=== PATIENT | female | born 1980 | race Caucasian/White ===

== ENCOUNTER 2022-08-25 08:19 | Outpatient (CLI) | payer BC, SELFPAY | END 2022-08-25 08:20 | disposition home or self-care (01) | LOC: INJ CL 08:25 | PROVIDERS: PCP Student in an Organized Health Care Education/Training Program; Visit Provider Family Medicine | DX: M47.816 Spondylosis without myelopathy or radiculopathy, lumbar region (principal) | CPT/HCPCS: 64493; 64494; J0702; Q9966 ==

== ENCOUNTER 2022-10-18 20:39 | Inpatient (IN) | payer BC, SELFPAY ==
[2022-10-18 21:05] VITALS: BP 110/62; PULSE 115; RESP 20; TEMP 37.9; O2SAT 96; BMI 22.9
--- NOTE | 2022-10-18 21:11 | ED_ITS ---
HPI - URI/Sore Throat General Time Seen by Provider: 21:11 Date Seen: 10/18/22 Chief Complaint: Sore Throat Stated Complaint: Glands are swollen, Difficulty breathing Time Seen by Provider: 10/18/22 21:11 Source: patient, RN notes reviewed and old records reviewed Mode of arrival: ambulatory Limitations: no limitations History of Present Illness HPI Narrative: Delores is a very pleasant 42-year-old female with a history of HIV, nasal septoplasty in the past who comes to the emergency room for evaluation regarding fever and swelling of her nose as well as lymph node swelling in her neck. Patient notes that 5 days ago she started noticing that her lymph nodes were swollen in her neck and she was having a hard time swallowing. She states that she had fever and chills 3 days ago and just a mild amount of coughing. Because of the sore throat she has not been able to take a lot of fluids. She notes that at times it almost seems like she is having a hard time breathing. 3 days ago she also noticed some swelling in her nose and she had a nasal ring through the septum. She removed that but since that time she has had increasing swelling of the entire nose and some nasal drainage. Her fever has been well above 100. She has not had any vomiting or diarrhea. Related Data Home Medications Medication Instructions Recorded Confirmed abacavir 600 mg-dolutegravir 50 1 tab PO DAILY 10/18/22 10/18/22 mg-lamivudine 300 mg tablet (Triumeq) aripiprazole 2 mg tablet 2 mg PO DAILY 10/18/22 10/18/22 clonazepam 1 mg tablet 1 mg PO DIRECTED 10/18/22 10/18/22 escitalopram oxalate 10 mg tablet 10 mg PO DAILY 10/18/22 10/18/22 Allergies Allergy/AdvReac Type Severity Reaction Status Date / Time No Known Drug Allergies Allergy Verified 10/18/22 21:08 Review of Systems Status of ROS: Reports: 10 or more systems reviewed and unremarkable except as noted in History and below Const: Reports: fever, chills and fatigue Eyes: Denies: change in vision ENMT: Reports: throat pain, neck pain, throat swelling, difficulty swallowing, nasal discharge and nasal congestion; Denies: hoarseness or swelling of lips/tongue Cardio: Denies: chest pain, swelling of feet/ankles, lightheadedness or shortness of breath with exertion Resp: Reports: cough (Slight); Denies: shortness of breath or wheezing GI: Reports: difficulty swallowing; Denies: abdominal pain, nausea, vomiting or diarrhea : Denies: painful urination or urinary frequency Musculo: Reports: neck pain; Denies: back pain or extremity pain Integ/Breast: Reports: skin tenderness (Around the nose) and skin swelling; Denies: rash Neuro: Denies: headache or numbness in extremities Endo: Reports: fatigue Allergy/Immuno: Reports: throat swelling; Denies: wheezing PFSH [facility] Medical History (Updated 10/18/22 @ 23:55 by Holland Frances MD) Migraine ?G43.909 - Migraine, unspecified, not intractable, without status migrainosus (ICD-10) Inflammatory arthritis ?M19.90 - Unspecified osteoarthritis, unspecified site (ICD-10) High triglycerides ?E78.1 - Pure hyperglyceridemia (ICD-10) Facet hypertrophy of lumbosacral region ?M47.817 - Spondylosis without myelopathy or radiculopathy, lumbosacral region (ICD-10) Attention deficit disorder (ADD) ?F98.8 - Other specified behavioral and emotional disorders with onset usually occurring in childhood and adolescence (ICD-10) LGSIL (low grade squamous intraepithelial dysplasia) Post traumatic stress disorder (PTSD) ?F43.10 - Post-traumatic stress disorder, unspecified (ICD-10) Tobacco dependence ?F17.200 - Nicotine dependence, unspecified, uncomplicated (ICD-10) Scoliosis ?M41.9 - Scoliosis, unspecified (ICD-10) Obstructive sleep apnea ?G47.33 - Obstructive sleep apnea (adult) (pediatric) (ICD-10) Major depressive disorder ?F32.9 - Major depressive disorder, single episode, unspecified (ICD-10) Anxiety disorder ?F41.9 - Anxiety disorder, unspecified (ICD-10) Human immunodeficiency virus (HIV) disease ?B20 - Human immunodeficiency virus [HIV] disease (ICD-10) Acne ?L70.9 - Acne, unspecified (ICD-10) Alcoholism in remission ?F10.21 - Alcohol dependence, in remission (ICD-10) Surgical History (Updated 10/18/22 @ 22:50 by Holland Frances MD) [place] teeth extracted ?K08.409 - Partial loss of teeth, unspecified cause, unspecified class (ICD- 10) History of tubal ligation ?Z98.51 - Tubal ligation status (ICD-10) Hx of tonsillectomy ?Z90.89 - Acquired absence of other organs (ICD-10) Status post colonoscopy with polypectomy ?Z98.890 - Other specified postprocedural states (ICD-10) H/O section ?Z98.891 - History of uterine scar from previous surgery (ICD-10) Status post rhinoplasty ?Z98.890 - Other specified postprocedural states (ICD-10) Family History (Updated 10/18/22 @ 22:51 by Holland Frances MD) Mother Colon cancer, Onset Age: 49 Social History Non-prescribed substance use: denies use Exam Narrative: Exam Narrative: Patient is alert and oriented. Tolerating IV placement when I enter the room. Patient has obvious edema swelling of the nose. There is some soft tissue fullness under the right eye as well. EOM is full however. There is some purulent drainage on both sides of the nose. No blood at this time. Tenderness throughout with palpation. Oral cavity shows erythema in the posterior oropharynx with exudate noted around the uvula and the posterior oropharynx. Neck is with positive anterior cervical lymphadenopathy. Otherwise neck is supple. Range of motion is full. Heart with a tachycardic rate but normal rhythm. Crackles noted in the left lower lung base. Abdomen soft nontender. Lower extremities without edema. Const: Vital Signs, click to edit/add: Vital Signs - 24 hr 10/18/22 21:05 10/18/22 23:18 10/18/22 23:53 Temperature 100.2 F H 101.5 F H 101.5 F H Pulse Rate [Right Pulse Oximeter] 115 H Respiratory Rate 20 Blood Pressure [Ri ght Upper Arm] 110/62 Pulse Oximetry 96 Oxygen Delivery Me thod Room Air Documenting provider has reviewed patient's vital signs: yes Course Course Hospital Course: It is my belief that we have 2 separate medical issues going on. First patient likely has underlying URI such as COVID versus strep versus RSV versus influenza given her respiratory symptoms and sore throat. However, I am very concerned regarding the increased size of patient's nose. She has a history remotely of a nasal septoplasty. She recently removed her nose ring because it was bothering her and now she has it edema of the entire nose. She has an elevated heart rate, fever and therefore I am worried that she has nasal cellulitis/facial cellulitis with potential sepsis. Will place an IV and do labs to include CBC, comprehensive, CRP, blood cultures. Will also obtain COVID/influenza/RSV and strep. Will start Zosyn and vancomycin while awaiting CT of the face. Plan on admission to the hospital. Reevaluation(s) Reevaluation #1: Patient noted to have CRP of 38.9 with a white count of 8.91 with a left shift. Strep has tested positive in she is negative for COVID influenza and RSV. I have asked nursing staff to obtain culture from nasal drainage. Vital Signs Vital signs: Initial Vital Signs Temperature 100.2 F H 10/18/22 21:05 Temperature Source Temporal Artery Scan 10/18/22 21:05 Pulse Rate 115 H 10/18/22 21:05 Respiratory Rate 20 10/18/22 21:05 Blood Pressure 110/62 10/18/22 21:05 Blood Pressure Mean 78 10/18/22 21:05 Blood Pressure Position Sitting 10/18/22 21:05 Pulse Oximetry 96 10/18/22 21:05 Oxygen Delivery Method Room Air 10/18/22 21:05 Vital Signs Temperature 100.2 F H 10/18/22 21:05 Pulse Rate 115 H 10/18/22 21:05 Respiratory Rate 20 10/18/22 21:05 Blood Pressure 110/62 10/18/22 21:05 Pulse Oximetry 96 10/18/22 21:05 Oxygen Delivery Method Room Air 10/18/22 21:05 Temperature 101.5 F H 10/18/22 23:53 Pulse Rate 68 10/19/22 00:56 Respiratory Rate 20 10/19/22 00:56 Blood Pressure 108/58 L 10/19/22 00:56 Pulse Oximetry 96 10/18/22 21:05 Oxygen Delivery Method Room Air 10/18/22 21:05 MDM - URI/Sore Throat MDM Narrative Medical decision making narrative: 1. Sepsis-patient meets requirement criteria for sepsis but not severe sepsis. She has no elevation of fever and tachycardia but her white count is normal. However, I am concerned as her CRP is markedly elevated and she has an obvious infection about the nose and face. Further she does have strep. Patient is given 1 L of normal saline, Toradol and antibiotics are initiated prior to going to CT. 2. Facial cellulitis-patient does have purulence draining from right nostril. Blood cultures as well as wound culture accomplished. Patient started on antibiotics Zosyn and vancomycin. 3. Strep pharyngitis -tested positive. CT soft tissue neck shows no evidence of airway compromise and is reassuring. 4. HIV 5. Disposition-admission to [facility] under the care of . IV antibiotics initiated in the ED. inpatient admission. Medical Records Attestation: I reviewed the patient's medical records. Lab Data Attestation: I reviewed the patient's lab results. Labs: Lab Results 10/18/22 10/19/22 Range/Units 21:20 00:10 WBC 8.91 (4.50-11.00) K/uL RBC 4.63 (4.00-5.20) m/uL Hgb 13.1 (12.0-16.0) gm/dL Hct 39.6 (33.0-51.0) % MCV 86 (80-100) fL MCH 28 (26-34) pg MCHC 33 (32-36) gm/dL RDW Coeff of Lesley 12.9 (11.5-15.5) % Plt Count 264 (140-440) K/uL Neut % (Auto) 77.4 H (42.0-72.0) % Lymph % (Auto) 11.8 L (20-44) % [place] % (Auto) 9.3 (0.0-11.0) % Eos % (Auto) 0.1 (0.0-7.0) % Baso % (Auto) 0.1 (0.0-3.0) % Neut # (Auto) 6.90 (1.7-7.0) K/uL Lymph # (Auto) 1.10 (0.90-2.90) K/uL [place] # (Auto) 0.80 (0.00-0.90) K/UL Eos # (Auto) 0.01 (0.00-0.50) K/uL Baso # (Auto) 0.01 (0.00-0.30) K/uL Sodium 130 L (135-149) mmol/L Potassium 3.1 L (3.6-5.1) mmol/L Chloride 95 L (96-114) mmol/L Carbon Dioxide 26 (20-32) mmol/L BUN 18 (5-24) mg/dL Creatinine 0.7 (0.5-1.5) mg/dL Estimated Creat Clear 81.96 Estimated GFR 110 ml/min Glucose 107 (60-115) mg/dL Lactate 0.8 (0.5-1.9) mmol/L Calcium 9.6 (8.4-10.6) mg/dL Total Bilirubin 0.6 (0.1-1.5) mg/dL AST 34 (12-35) U/L ALT 38 H (4-35) U/L Alkaline Phosphatase 118 (40-150) U/L C-Reactive Protein 38.9 H (0.5-1.0) mg/dL Total Protein 7.7 (6.0-8.3) g/dL Albumin 4.1 (3.3-5.0) g/dL SARS-CoV-2 (PCR) Negative SARS-CoV-2 (Negative) Influenza Type A (PCR) Negative PCR FLU A (Negative) Influenza Type B (PCR) Negative PCR FLU B (Negative) RSV (PCR) Negative PCR RSV (Negative) Group A Strep DNA DETECTED A (Not Detectd) Imaging Data Chest x-ray: Attestation: I have reviewed the pertinent imaging results. My impression: No evidence infiltrate Radiologist's impression: Cardiovascular and mediastinum:? Cardiomediastinal silhouette is within normal limits? Lungs and pleural spaces:? No dense consolidations. Subtle bilateral interstitial opacities. No sign of pleural effusion.? No pneumothorax.? Bones and soft tissues:? No significant findings. IMPRESSION: No dense consolidations. Subtle bilateral interstitial opacities may be seen in the setting of viral infection, airways disease.. Facial CT: Attestation: I have reviewed the pertinent imaging results. Radiologist's impression: Facial bones: No fractures or bone lesions.? Specifically the nasal bones, temporomandibular joints, maxilla and mandible appear intact.? Orbits and globes: Unremarkable.? Sinuses: Pansinus mucosal thickening. Soft tissues: Mild right facial, right periorbital and right nasal soft tissue swelling. No soft tissue gas or abscess. IMPRESSION: Mild right facial, right periorbital and right nasal soft tissue swelling may be due to cellulitis. No soft tissue gas or abscess. Soft tissue neck CT: Attestation: I have reviewed the pertinent imaging results. Critical Care Time Critical Care Time Critical Care Time: Yes Attestation: The patient required my highest level preparedness to intervene emergently and I personally spent this critical care time directly and personally managing the patient. This critical care time included: Obtaining a history; Examining the patient; Pulse oximetry; Ordering and reviewing of studies; Arranging urgent treatment with development of a management plan; Evaluation of patients response to treatment; Frequent reassessment discussions with other providers. This critical care time was performed to assess and manage the high probability of imminent life-threatening deterioration that could result in multiorgan failure. It was exclusive of separate billable procedures and treating other patients and teaching time. Total Critical Care Time in Minutes: 60 Discharge Plan Discharge Clinical Impression: Strep pharyngitis Cellulitis Qualifiers: Site of cellulitis: face Qualified Code(s): L03.211 - Cellulitis of face Patient Disposition: Admitted As Inpatient Condition: Improved
--- NOTE | 2022-10-18 21:19 | CRLHL7_ITS ---
For Patients: As a result of the Century Cures Act, medical imaging exams and procedure reports are released immediately into your electronic medical record. You may view this report before your referring provider. If you have questions, please contact your health care provider. INDICATION: Nasal and facial cellulitis TECHNIQUE: CT maxillofacial with 62 cc Isovue 370 contrast. COMPARISON: None FINDINGS: Facial bones: No fractures or bone lesions. Specifically the nasal bones, temporomandibular joints, maxilla and mandible appear intact. Orbits and globes: Unremarkable. Sinuses: Pansinus mucosal thickening. Soft tissues: Mild right facial, right periorbital and right nasal soft tissue swelling. No soft tissue gas or abscess. IMPRESSION: Mild right facial, right periorbital and right nasal soft tissue swelling may be due to cellulitis. No soft tissue gas or abscess. Please note that all CT scans at this facility use dose modulation, iterative reconstruction, and/or weight-based dosing when appropriate to reduce radiation dose to as low as reasonably achievable. Dictated by Aye Vasques MD @ 10/18/2022 11:52:17 PM (Electronically Signed)
--- NOTE | 2022-10-18 21:19 | CRLHL7_ITS ---
For Patients: As a result of the Century Cures Act, medical imaging exams and procedure reports are released immediately into your electronic medical record. You may view this report before your referring provider. If you have questions, please contact your health care provider. INDICATION: Difficulty swallowing. History of tonsillectomy. TECHNIQUE: CT of the neck with 62 cc Isovue 370 iodinated contrast agent. Coronal and sagittal reconstructions are included. COMPARISON: None. FINDINGS: Mild mucosal thickening and hyperenhancement within the nasopharynx and oropharynx, as well as enlargement of the uvula. Findings are likely related to history of tonsillectomy. No organized fluid collections. Several prominent lymph nodes within the upper neck, greater on the right are likely reactive in etiology. No high-grade airway compromise. The supraglottic, glottic and infraglottic larynx are normal. Trachea is normal and patent. The parotid glands, submandibular and sublingual glands are normal in appearance. The thyroid gland is normal in appearance. The vascular structures opacify normally with contrast material. No suspicious lytic or blastic osseous lesions. Scattered cervical spondylosis without significant bony neural foraminal stenosis. No periapical dental disease. Moderate ethmoid air cell mucosal thickening. Right maxillary sinus air-fluid level. Visualized orbital and intracranial contents are normal. Supraclavicular regions, mediastinum and soft tissues of the imaged chest wall are normal. Visualized portions of the upper lungs are clear. IMPRESSION: 1. Typical postoperative changes within the nasopharynx/oropharynx status post tonsil ectomy by history. No organized fluid collection. Several prominent upper cervical lymph nodes are likely reactive. No high-grade airway compromise. 2. No other significant cervical soft tissue pathology. Please note that all CT scans at this facility use dose modulation, iterative reconstruction, and/or weight-based dosing when appropriate to reduce radiation dose to as low as reasonably achievable. Dictated by Zack Arthur MD @ 10/19/2022 8:45:28 AM (Electronically Signed)
--- NOTE | 2022-10-18 21:22 | CRLHL7_ITS ---
For Patients: As a result of the Cures Act, medical imaging exams and procedure reports are released immediately into your electronic medical record. You may view this report before your referring provider. If you have questions, please contact your health care provider. INDICATION: Chest pain. TECHNIQUE: Chest 2 views. COMPARISON: None. FINDINGS: Cardiovascular and mediastinum: Cardiomediastinal silhouette is within normal limits Lungs and pleural spaces: No dense consolidations. Subtle bilateral interstitial opacities. No sign of pleural effusion. No pneumothorax. Bones and soft tissues: No significant findings. IMPRESSION: No dense consolidations. Subtle bilateral interstitial opacities may be seen in the setting of viral infection, airways disease.. Dictated by Shayna Dominguez MD @ 10/18/2022 11:44:52 PM (Electronically Signed)
[2022-10-18 21:33] LABS: Basophils Absolute Auto 0.01 K/uL (0.00-0.30); Basophils Percent Auto 0.1 % (0.0-3.0); Eosinophils Absolute Auto 0.01 K/uL (0.00-0.50); Eosinophils Percent Auto 0.1 % (0.0-7.0); Hematocrit 39.6 % (33.0-51.0); Hemoglobin* 13.1 gm/dL (12.0-16.0); Immature Granulocytes Abs Auto 0.12 K/uL (0.00-0.30); Immature Granulocytes Pct Auto 1.3 %; Lymphocytes Percent Auto 11.8 % (20-44); Mean Corpuscular HGB Conc 33 gm/dL (32-36); Mean Corpuscular Hemoglobin 28 pg (26-34); Mean Corpuscular Volume 86 fL (80-100); Monocytes Percent Auto 9.3 % (0.0-11.0); Neutrophils Percent Auto 77.4 % (42.0-72.0); Platelet Count* 264 K/uL (140-440); RDW Coefficient of Variation % 12.9 % (11.5-15.5); Red Blood Count 4.63 m/uL (4.00-5.20); White Blood Count* 8.91 K/uL (4.50-11.00)
[2022-10-18] MEDS: PIPERACILLIN/TAZOBACTAM 3.375 GM in 0.9 % SODIUM CHLORIDE Mini-bag 100 ML IVPB (21:38)
[2022-10-18] MEDS: 0.9 % SODIUM CHLORIDE 1000 ml 1,000 ML IV (21:39)
[2022-10-18 21:41] LABS: Slide Review Reflex No
[2022-10-18 21:45] LABS: Albumin* 4.1 g/dL (3.3-5.0); Chloride* 95 mmol/L (96-114); Sodium* 130 mmol/L (135-149)
[2022-10-18 21:46] LABS: Potassium* 3.1 mmol/L (3.6-5.1)
[2022-10-18 21:48] LABS: Bilirubin Total* 0.6 mg/dL (0.1-1.5); Carbon Dioxide* 26 mmol/L (20-32); Creatinine* 0.7 mg/dL (0.5-1.5); Est. Creatinine Clearance* 81.96; Estimated Glomerular Filt Rate 110 ml/min
[2022-10-18 21:49] LABS: Alanine Aminotransferase* 38 U/L (4-35); Alkaline Phosphatase* 118 U/L (40-150); Aspartate Amino Transferase* 34 U/L (12-35); Blood Urea Nitrogen* 18 mg/dL (5-24); Calcium* 9.6 mg/dL (8.4-10.6); Glucose* 107 mg/dL (60-115); Total Protein* 7.7 g/dL (6.0-8.3)
[2022-10-18 22:11] LABS: PCR FLU A Negative PCR FLU A (Negative); PCR FLU B Negative PCR FLU B (Negative); PCR RSV Negative PCR RSV (Negative)
[2022-10-18 22:17] LABS: SARS PCR* Negative SARS-CoV-2 (Negative); Strep A DNA Probe* DETECTED (Not Detectd)
[2022-10-18 22:18] LABS: C Reactive Protein* 38.9 mg/dL (0.5-1.0)
[2022-10-18 23:18] VITALS: TEMP 38.6
--- NOTE | 2022-10-18 23:36 | PM.IMHP1 ---
Hospitalist- H&P: HPI History of Present Illness Time Seen by Provider: 23:30 Date Seen: 10/18/22 Chief complaint: Glands are swollen, Difficulty breathing Narrative: Delores Sotelo is a 42 year old woman presents with a 3 day history of intermittent fevers, rigors, sore throat, neck lymphadenopathy, periorbital and facial redness, warmth, swelling, nasal congestion with purulent discharge from the right nostril. Difficulty breathing through her nose but does not have difficulty breathing through her mouth. Noteworthy is that she did have a nasal ring in place. Notice discomfort on and remove the nasal ring. Despite removing the nasal ring the redness and pain persisted. Having more difficulty swallowing with discomfort. Swallows liquids all right but more painful with solid foods. Has a chronic cough but her cough is more persistent now than it normally is. Is a chronic smoker 1 pack per day. In the last 1-2 days she has had fevers, rigors, even diaphoresis. Temperatures have been up to 101? F at home. Had been hiking within the last week. Did not notice any wood ticks or deer ticks on herself or those whom she was hiking with. To the best of her knowledge she has not been exposed to SARS-CoV-2, influenza, or RSV.. Review of Systems Status of ROS: Reports: 10 or more systems reviewed and unremarkable except as noted in History and below Narrative: Has human immunodeficiency virus disease for which she takes her medication regularly and daily. Denies chest heaviness, pressure, tightness, or pain. No syncope or near syncope. Denies paroxysmal nocturnal dyspnea orthopnea. Denies edema or claudication. Denies nausea or vomiting. Denies diarrhea or constipation. Denies dysuria, urgency, frequency, or hematuria. Has had myalgias without arthralgias. Denies trauma, injury, or regional or international travel. She designates her mother, Cely, cell phone number [phone], as her medicare contact specialist should the patient not able to speak on her own behalf and make her own healthcare decisions. She requests full resuscitation in the event of cardiopulmonary demise. [facility] Medical History (Updated 10/18/22 @ 23:55 by Holland Frances MD) Migraine ?G43.909 - Migraine, unspecified, not intractable, without status migrainosus (ICD-10) Inflammatory arthritis ?M19.90 - Unspecified osteoarthritis, unspecified site (ICD-10) High triglycerides ?E78.1 - Pure hyperglyceridemia (ICD-10) Facet hypertrophy of lumbosacral region ?M47.817 - Spondylosis without myelopathy or radiculopathy, lumbosacral region (ICD-10) Attention deficit disorder (ADD) ?F98.8 - Other specified behavioral and emotional disorders with onset usually occurring in childhood and adolescence (ICD-10) LGSIL (low grade squamous intraepithelial dysplasia) Post traumatic stress disorder (PTSD) ?F43.10 - Post-traumatic stress disorder, unspecified (ICD-10) Tobacco dependence ?F17.200 - Nicotine dependence, unspecified, uncomplicated (ICD-10) Scoliosis ?M41.9 - Scoliosis, unspecified (ICD-10) Obstructive sleep apnea ?G47.33 - Obstructive sleep apnea (adult) (pediatric) (ICD-10) Major depressive disorder ?F32.9 - Major depressive disorder, single episode, unspecified (ICD-10) Anxiety disorder ?F41.9 - Anxiety disorder, unspecified (ICD-10) Human immunodeficiency virus (HIV) disease ?B20 - Human immunodeficiency virus [HIV] disease (ICD-10) Acne ?L70.9 - Acne, unspecified (ICD-10) Alcoholism in remission ?F10.21 - Alcohol dependence, in remission (ICD-10) Surgical History (Updated 10/18/22 @ 22:50 by Holland Frances MD) [place] teeth extracted ?K08.409 - Partial loss of teeth, unspecified cause, unspecified class (ICD-10) History of tubal ligation ?Z98.51 - Tubal ligation status (ICD-10) Hx of tonsillectomy ?Z90.89 - Acquired absence of other organs (ICD-10) Status post colonoscopy with polypectomy ?Z98.890 - Other specified postprocedural states (ICD-10) H/O section ?Z98.891 - History of uterine scar from previous surgery (ICD-10) Status post rhinoplasty ?Z98.890 - Other specified postprocedural states (ICD-10) Family History (Updated 10/18/22 @ 22:51 by Holland Frances MD) Mother Colon cancer, Onset Age: 49 Social History Non-prescribed substance use: denies use Meds Home Medications and Allergies Home Medications Medication Instructions Recorded Confirmed Type abacavir 600 mg-dolutegravir 50 1 tab PO DAILY 10/18/22 10/18/22 History mg-lamivudine 300 mg tablet (Triumeq) aripiprazole 2 mg tablet 2 mg PO DAILY 10/18/22 10/18/22 History clonazepam 1 mg tablet 1 mg PO DIRECTED 10/18/22 10/18/22 History escitalopram oxalate 10 mg tablet 10 mg PO DAILY 10/18/22 10/18/22 History Allergies Allergy/AdvReac Type Severity Reaction Status Date / Time No Known Drug Allergies Allergy Verified 10/18/22 21:08 Exam Narrative: Exam Narrative: Appears ill. Vision and hearing are grossly normal. Friendly, cooperative, articulate. Mood and affect are congruent. Alert, oriented to self, place, time, situation. Face with cellulitis of the periorbital region bilaterally, right greater than left, both cheeks, nasal bridge. Warm to touch with induration but no fluctuance. Purulent crusting about the right Santiago ease with purulent discharge from the right naris. Oropharynx is injected without exudate. Buccal mucosa is dry. Prominent lymphadenopathy in the cervical chains and submandibular fossa bilaterally. Neck is supple with midline trachea. Able to swallow water. Lungs clear to auscultation. Heart tones with regular rhythm, tachycardic. Abdomen with active bowel sounds, soft, nontender. Extremities without edema. Capillary refill less than 3 seconds upper and lower extremities. Independent in transfer, station, and gait. No focal motor neurologic deficits. Const: Vital Signs, click to edit/add: Vital Signs - 24 hr 10/18/22 21:05 10/18/22 23:18 Temperature 100.2 F H 101.5 F H Pulse Rate [Right Pulse Oximeter] 115 H Respiratory Rate 20 Blood Pressure [Ri ght Upper Arm] 110/62 Pulse Oximetry 96 Oxygen Delivery Me thod Room Air Documenting provider has reviewed patient's vital signs: yes Hospitalist - H&P: Result Labs Labs: Short CBC 10/18/22 Range/Units 21:20 WBC 8.91 (4.50-11.00) K/uL Hgb 13.1 (12.0-16.0) gm/dL Hct 39.6 (33.0-51.0) % Plt Count 264 (140-440) K/uL BMP 10/18/22 21:20 Sodium 130 L Potassium 3.1 L Chloride 95 L Carbon Dioxide 26 BUN 18 Creatinine 0.7 Glucose 107 Calcium 9.6 Liver Function 10/18/22 Range/Units 21:20 Total Bilirubin 0.6 (0.1-1.5) mg/dL AST 34 (12-35) U/L ALT 38 H (4-35) U/L Alkaline Phosphatase 118 (40-150) U/L Albumin 4.1 (3.3-5.0) g/dL Imaging Chest x-ray: Attestation: I have reviewed the pertinent imaging results. Radiologist's impression: Radiologist interpretation not available. By my view there is no acute infiltrates. Does have scoliosis. CT scan, face: Radiologist's impression: Radiologist's interpretation pending CT scan of neck: Radiologist's impression: Radiologist interpretation is still pending Assessment and Plan Assessment and plan (1) Facial cellulitis: Status: Acute (2) Strep pharyngitis: Status: Acute (3) Sepsis: Status: Acute (4) Human immunodeficiency virus (HIV) disease: Status: Acute (5) Tobacco dependence: Problem comment: smokes 1 ppd, 27 pyh Status: Acute Plan 1. Admit to inpatient status, assuming CT scans do not demonstrate any other major concerns that warrant immediate attention. Should we find additional abnormalities would need to consider possibly transferring to another institution or discussing with on-call ear nose throat specialist. 2. Blood cultures obtained. Wound culture obtained. Start Zosyn and vancomycin empirically for now. 3. IV fluids, analgesics and antipyretics. 4. Continue with supportive efforts, including her HIV medication. 5. Nicotine patch and inhaler. 6. Patient agreeable with above stated plans and recommendations.
[2022-10-18 23:53] VITALS: TEMP 38.6
[2022-10-18] MEDS: KETOROLAC 15 MG/ML inj IVP (23:53)
[2022-10-19] VITALS (12 sets, daily range): BP systolic 96–134; BP diastolic 57–89; PULSE 68–107; RESP 18–22; TEMP 36.3–39.3; O2SAT 90–98; BMI 21.7
[2022-10-19 00:14] LABS: Lactate* 0.8 mmol/L (0.5-1.9)
--- NOTE | 2022-10-19 00:50 | ED.NURSE ---
nurse to nurse report given to Chen. Patient to go to room 259
[2022-10-19] MEDS: 0.9 % SODIUM CHLORIDE 1000 ml 1,000 ML IV (02:13)
[2022-10-19] MEDS: POTASSIUM BICARB 25 MEQ EFFERVESCENT TAB 50 MEQ PO (02:14)
[2022-10-19] MEDS: ACETAMINOPHEN 325 MG TABLET 650 MG PO ×2 (02:14→19:58)
[2022-10-19] MEDS: 0.9 % SODIUM CH + KCL 20 mEq/L 1,000 ML 125 ML IV (02:14)
[2022-10-19] MEDS: PIPERACILLIN/TAZOBACTAM 3.375 GM in 0.9 % SODIUM CHLORIDE Mini-bag 100 ML IVPB ×4 (03:46→21:29)
--- NOTE | 2022-10-19 06:25 | PC.NURSE ---
Arrived to floor at 0100. Pt A&O. Pleasant and cooperative, but sleepy. Temp of 100.3 recorded, PRN Tylenol given. Complains of headache rating 4/10 but stating ?tolerable?. Right side of face warm, red, and swollen. Denies SOB. Up at [facility].
[2022-10-19 07:00] LABS: Lactate* 0.8 mmol/L (0.5-1.9)
[2022-10-19 07:08] LABS: Hematocrit 32.1 % (33.0-51.0); Hemoglobin* 10.6 gm/dL (12.0-16.0); Mean Corpuscular HGB Conc 33 gm/dL (32-36); Mean Corpuscular Hemoglobin 29 pg (26-34); Mean Corpuscular Volume 87 fL (80-100); Platelet Count* 237 K/uL (140-440); Red Blood Count 3.69 m/uL (4.00-5.20); Slide Review Reflex No; White Blood Count* 8.16 K/uL (4.50-11.00)
[2022-10-19 07:20] LABS: Albumin* 2.9 g/dL (3.3-5.0); Chloride* 106 mmol/L (96-114); Potassium* 3.6 mmol/L (3.6-5.1); Sodium* 132 mmol/L (135-149)
[2022-10-19 07:23] LABS: Blood Urea Nitrogen* 15 mg/dL (5-24); Carbon Dioxide* 25 mmol/L (20-32); Creatinine* 0.6 mg/dL (0.5-1.5); Est. Creatinine Clearance* 95.62; Estimated Glomerular Filt Rate 114 ml/min
[2022-10-19 07:24] LABS: Calcium* 7.8 mg/dL (8.4-10.6); Glucose* 98 mg/dL (60-115); Magnesium* 1.7 mg/dL (1.5-2.6); Phosphorus* 3.1 mg/dL (2.5-4.5)
[2022-10-19] MEDS: LACTATED RINGERS 500 ML 500 ML IV (09:13)
--- NOTE | 2022-10-19 09:13 | PM.IMPN1 ---
Progress Note: A&P Assessment and plan (1) Facial cellulitis: Problem details: - Zosyn and Vanco (10/18) - clinically improving on hospital day 1 - high risk given immunocompromised status - wound and blood cultures pending Status: Acute (2) Sepsis: Problem details: - clinically; elevated HR and hypotension, responding well to IVFs - BCx pending and currently NGTD Status: Acute (3) Strep pharyngitis: Problem details: - improving Status: Acute (4) Human immunodeficiency virus (HIV) disease: Problem details: - follows with ID as outpatient Status: Acute (5) Tobacco dependence: Problem details: - smokes 1 ppd, 27 pack-year hx - on nicotine replacement Status: Acute Plan - SCDs and ambulation for ppx - will d/c home when medically stable, possibly as early as tomorrow Subjective Date Seen: 10/19/22 Interval history: Patient is feeling better today, still having R eyelid edema. No fevers this morning (+ overnight), no concerns for hospitalist team. Exam Narrative: Exam Narrative: Gen: A and O x3, laying comfortably in bed, nontoxic HEENT: Erythema and edema of R eyelid, extends inferiorly. Able to open eye 50-60%, EOMIs intact with no pain during ROM. No trismus CV: RRR (HR in the 90s during my exam), no concerning murmurs R: LCTA bilaterally without wheezing Ext: thin, no edema, wearing Jonathon Hose Skin: No other skin lesions besides facial cellulitis on exposed skin Psych: appropriate Const: Vital Signs, click to edit/add: Vital Signs - 24 hr 10/18/22 21:05 10/18/22 23:18 10/18/22 23:53 Temperature 100.2 F H 101.5 F H 101.5 F H Pulse Rate [Pulse Oximeter] Pulse Rate [Right Pulse Oximeter] 115 H Respiratory Rate 20 Blood Pressure [Le ft Arm] Blood Pressure [Ri ght Arm] Blood Pressure [Ri ght Upper Arm] 110/62 Pulse Oximetry 96 Oxygen Delivery Me thod Room Air 10/19/22 00:56 10/19/22 01:07 10/19/22 02:00 Temperature 100.3 F H Pulse Rate [Pulse Oximeter] 107 H Pulse Rate [Right Pulse Oximeter] 68 Respiratory Rate 20 18 18 Blood Pressure [Le ft Arm] Blood Pressure [Ri ght Arm] 112/57 L Blood Pressure [Ri ght Upper Arm] 108/58 L Pulse Oximetry 95 95 Oxygen Delivery Me thod Room Air Room Air 10/19/22 02:14 10/19/22 03:57 10/19/22 05:00 Temperature 100.3 F H 100.0 F H 99.6 F Pulse Rate [Pulse Oximeter] 100 Pulse Rate [Right Pulse Oximeter] Respiratory Rate 22 Blood Pressure [Le ft Arm] 105/66 Blood Pressure [Ri ght Arm] Blood Pressure [Ri ght Upper Arm] Pulse Oximetry 91 Oxygen Delivery Me thod Room Air 10/19/22 06:00 Temperature 98.9 F Pulse Rate [Pulse Oximeter] Pulse Rate [Right Pulse Oximeter] Respiratory Rate Blood Pressure [Le ft Arm] Blood Pressure [Ri ght Arm] Blood Pressure [Ri ght Upper Arm] Pulse Oximetry Oxygen Delivery Me thod Labs Labs: Laboratory Results - last 24 hr 10/18/22 10/19/22 10/19/22 21:20 00:10 06:53 WBC 8.91 8.16 RBC 4.63 3.69 L Hgb 13.1 10.6 L Hct 39.6 32.1 L MCV 86 87 MCH 28 29 MCHC 33 33 RDW Coeff of Lesley 12.9 Plt Count 264 237 Neut % (Auto) 77.4 H Lymph % (Auto) 11.8 L [place] % (Auto) 9.3 Eos % (Auto) 0.1 Baso % (Auto) 0.1 Neut # (Auto) 6.90 Lymph # (Auto) 1.10 [place] # (Auto) 0.80 Eos # (Auto) 0.01 Baso # (Auto) 0.01 Sodium 130 L 132 L Potassium 3.1 L 3.6 Chloride 95 L 106 Carbon Dioxide 26 25 BUN 18 15 Creatinine 0.7 0.6 Estimated Creat Clear 81.96 95.62 Estimated GFR 110 114 Glucose 107 98 Lactate 0.8 0.8 Calcium 9.6 7.8 L Phosphorus 3.1 Magnesium 1.7 Total Bilirubin 0.6 AST 34 ALT 38 H Alkaline Phosphatase 118 C-Reactive Protein 38.9 H Total Protein 7.7 Albumin 4.1 2.9 L SARS-CoV-2 (PCR) Negative SARS-CoV-2 Influenza Type A (PCR) Negative PCR FLU A Influenza Type B (PCR) Negative PCR FLU B RSV (PCR) Negative PCR RSV Group A Strep DNA DETECTED A
[2022-10-19] MEDS: ESCITALOPRAM 10 MG TABLET PO (09:25)
[2022-10-19] MEDS: NICOTINE 21 MG PATCH 1 PATCH TRANSDERMA (09:25)
[2022-10-19] MEDS: SODIUM CHLORIDE 0.9 % (FLUSH) 10 ML SYRINGE 5 ML IVF ×2 (09:56→21:30)
[2022-10-19] MEDS: ARIPiprazole 10 MG TABLET 2.5 MG PO (09:56)
[2022-10-19] MEDS: OXYCODONE 5 MG TABLET PO ×2 (11:47→19:57)
[2022-10-19] MEDS: MORPHINE 2 MG/ML inj IVP (15:55)
--- NOTE | 2022-10-19 19:31 | PC.NURSE ---
[id number]: Patient continues to report increase in pain, redness and swelling to face. Patient pain controlled with prn morphine. Patient airway open. Patient reports using cranium for pain relief. Nursing reported to provider. Patient independent in room. Patient able to verbalize needs.
[2022-10-19] MEDS: VANCOMYCIN 750 MG in 0.9 % SODIUM CHLORIDE 250 ml 250 ML 257.5 MG IVPB (23:11)
[2022-10-20] MEDS: OXYCODONE 5 MG TABLET PO ×2 (00:31→21:14)
[2022-10-20] MEDS: ACETAMINOPHEN 325 MG TABLET 650 MG PO ×2 (02:45→16:18)
[2022-10-20] MEDS: MORPHINE 2 MG/ML inj IVP ×3 (02:49→16:18)
[2022-10-20] MEDS: SODIUM CHLORIDE 0.9 % (FLUSH) 10 ML SYRINGE 5 ML IVF ×3 (02:49→21:13)
[2022-10-20] MEDS: PIPERACILLIN/TAZOBACTAM 3.375 GM in 0.9 % SODIUM CHLORIDE Mini-bag 100 ML IVPB ×4 (02:50→21:13)
[2022-10-20 03:00] VITALS: BP 109/73; PULSE 86; RESP 18; TEMP 36.7; O2SAT 94
--- NOTE | 2022-10-20 06:30 | PC.NURSE ---
Pt's condition appears improving as redness and swelling at face subside. Walked several times in the hallway. Temperature at the start of the shift was at 1900 was very high at 102.8. Tylenol given and the last 2 check recorded as 99.1 and 98.1 at 2300 and 0300 respectively. Pain level has been rated between and 4 and 8, and medications given as requested. Alert and oriented and cooperated with care and treatment. Vitally stable.
[2022-10-20 07:00] VITALS: BP 114/76; PULSE 79; RESP 18; TEMP 36.7; O2SAT 96
[2022-10-20 07:06] LABS: Ionized Calcium* 1.16 mmol/L (1.11-1.30)
[2022-10-20 07:09] LABS: Basophils Absolute Auto 0.02 K/uL (0.00-0.30); Basophils Percent Auto 0.3 % (0.0-3.0); Eosinophils Absolute Auto 0.21 K/uL (0.00-0.50); Eosinophils Percent Auto 2.6 % (0.0-7.0); Hemoglobin* 10.1 gm/dL (12.0-16.0); Immature Granulocytes Abs Auto 0.08 K/uL (0.00-0.30); Lymphocytes Percent Auto 18.3 % (20-44); Mean Corpuscular HGB Conc 33 gm/dL (32-36); Mean Corpuscular Hemoglobin 28 pg (26-34); Mean Corpuscular Volume 87 fL (80-100); Monocytes Percent Auto 9.3 % (0.0-11.0); Neutrophils Absolute Auto 5.48 K/uL (1.7-7.0); Neutrophils Percent Auto 68.5 % (42.0-72.0); Platelet Count* 246 K/uL (140-440); RDW Coefficient of Variation % 13.1 % (11.5-15.5); Red Blood Count 3.57 m/uL (4.00-5.20); White Blood Count* 7.99 K/uL (4.50-11.00)
[2022-10-20 07:10] LABS: Slide Review Reflex No
[2022-10-20 07:43] LABS: Albumin* 2.7 g/dL (3.3-5.0); Chloride* 103 mmol/L (96-114)
[2022-10-20 07:44] LABS: Potassium* 3.6 mmol/L (3.6-5.1); Sodium* 133 mmol/L (135-149)
[2022-10-20 07:46] LABS: Aspartate Amino Transferase* 25 U/L (12-35); Bilirubin Total* 0.4 mg/dL (0.1-1.5); Carbon Dioxide* 29 mmol/L (20-32); Creatinine* 0.5 mg/dL (0.5-1.5); Est. Creatinine Clearance* 114.74; Estimated Glomerular Filt Rate 119 ml/min; Total Protein* 5.4 g/dL (6.0-8.3)
[2022-10-20 07:47] LABS: Alanine Aminotransferase* 22 U/L (4-35); Alkaline Phosphatase* 80 U/L (40-150); Blood Urea Nitrogen* 8 mg/dL (5-24); Calcium* 8.4 mg/dL (8.4-10.6); Glucose* 104 mg/dL (60-115); Magnesium* 1.9 mg/dL (1.5-2.6)
[2022-10-20] MEDS: NICOTINE 21 MG PATCH 1 PATCH TRANSDERMA (08:32)
[2022-10-20] MEDS: ESCITALOPRAM 10 MG TABLET PO (08:32)
[2022-10-20] MEDS: ARIPiprazole 10 MG TABLET 2.5 MG PO (08:32)
[2022-10-20] MEDS: dexAMETHasone 2 MG TABLET 6 MG PO (09:58)
[2022-10-20] MEDS: CETIRIZINE HCL 10 MG TABLET PO (09:59)
--- NOTE | 2022-10-20 10:11 | P.IMPN_ITS ---
Progress Note: A&P Assessment and plan (1) Facial cellulitis: Problem details: - Zosyn and Vanco (10/18) - high risk given immunocompromised status - cultures currently NGTD - given worsening of R eyelid edema on 10/20, will repeat CT Status: Acute (2) Sepsis: Problem details: - clinically; elevated HR and hypotension on admission - hemodynamically stable at this time, responding well to IVFs - BCx currently NGTD Status: Acute (3) Strep pharyngitis: Status: Acute (4) Human immunodeficiency virus (HIV) disease: Problem details: - on Triumeq, follows with ID as outpatient Status: Acute (5) Tobacco dependence: Problem details: - smokes 1 ppd, 27 pack-year hx - on nicotine replacement Status: Acute Plan - continue IV abx - repeat imaging today - teds, ambulation for ppx; add Lovenox 10/20 Subjective Date Seen: 10/20/22 Interval history: Tmax 102.8 overnight, afebrile this morning. Delores still has mild discomfort in R side of her throat and R eye edema see ms worse today. She's been ambulating without lightheadedness or dizziness and is tolerating po intake. Exam Narrative: Exam Narrative: GEN: Alert HEENT: R eyelid has worsening edema noted (unable to open eye at all without assistance). When I hold eyelid open, she is able to perform EOMIs without pain. Conjunctiva is normal. + exudative pharyngitis R posterior oropharynx, + R sided cervical adenopathy, no trismus CV: RRR, No concerning murmurs, rubs, or gallops R: LCTA bilaterally without concerning wheezing, rales, or rhonchi Ext: wwp, no concerning edema Skin: see above - no other concerning skin lesions Neuro: Nonfocal Psych: Appropriate Const: Vital Signs, click to edit/add: Vital Signs - 24 hr 10/19/22 11:00 10/19/22 15:00 10/19/22 15:00 Temperature 97.4 F L Pulse Rate [Pulse Oximeter] 85 85 Respiratory Rate 20 20 20 Blood Pressure [Le ft Arm] Blood Pressure [Ri ght Arm] 103/67 Pulse Oximetry 98 98 Oxygen Delivery Me thod Room Air Room Air 10/19/22 15:00 10/19/22 19:00 10/19/22 23:00 Temperature 97.3 F L 102.8 F H Pulse Rate [Pulse Oximeter] 100 104 H 85 Respiratory Rate 18 18 18 Blood Pressure [Le ft Arm] 122/75 134/89 Blood Pressure [Ri ght Arm] Pulse Oximetry 93 93 Oxygen Delivery Me thod Room Air Room Air 10/19/22 23:00 10/19/22 23:00 10/20/22 03:00 Temperature 99.1 F 98.1 F Pulse Rate [Pulse Oximeter] 85 86 Respiratory Rate 18 18 18 Blood Pressure [Le ft Arm] 96/69 109/73 Blood Pressure [Ri ght Arm] Pulse Oximetry 90 90 94 Oxygen Delivery Me thod Room Air Room Air Room Air 10/20/22 07:00 Temperature 98.0 F Pulse Rate [Pulse Oximeter] 79 Respiratory Rate 18 Blood Pressure [Le ft Arm] 114/76 Blood Pressure [Ri ght Arm] Pulse Oximetry 96 Oxygen Delivery Me thod Room Air Labs Labs: Laboratory Results - last 24 hr 10/20/22 06:06 WBC 7.99 RBC 3.57 L Hgb 10.1 L Hct 31.0 L MCV 87 MCH 28 MCHC 33 RDW Coeff of Lesley 13.1 Plt Count 246 Neut % (Auto) 68.5 Lymph % (Auto) 18.3 L [place] % (Auto) 9.3 Eos % (Auto) 2.6 Baso % (Auto) 0.3 Neut # (Auto) 5.48 Lymph # (Auto) 1.50 [place] # (Auto) 0.70 Eos # (Auto) 0.21 Baso # (Auto) 0.02 Sodium 133 L Potassium 3.6 Chloride 103 Carbon Dioxide 29 BUN 8 Creatinine 0.5 Estimated Creat Clear 114.74 Estimated GFR 119 Glucose 104 Calcium 8.4 Ionized Calcium Imer 1.16 Magnesium 1.9 Total Bilirubin 0.4 AST 25 ALT 22 Alkaline Phosphatase 80 C-Reactive Protein 23.0 H Total Protein 5.4 L Albumin 2.7 L
[2022-10-20 11:00] VITALS: BP 103/67; BP 119/77; PULSE 89; RESP 18; TEMP 36.7; O2SAT 96
--- NOTE | 2022-10-20 12:34 | CRLHL7_ITS ---
For Patients: As a result of the Century Cures Act, medical imaging exams and procedure reports are released immediately into your electronic medical record. You may view this report before your referring provider. If you have questions, please contact your health care provider. INDICATION: Follow up nasal and periorbital cellulitis. TECHNIQUE: CT images acquired through the facial bones following intravenous contrast. COMPARISON: CT facial bones 10/18/2022. FINDINGS Extensive stranding throughout the subcutaneous tissues of the right greater than left face, including the periorbital regions, as well as stranding along the bilateral jugular chains and anterior cervical neck. These findings have increased compared to the prior CT. No peripherally enhancing collection to suggest abscess. No postseptal inflammation. Small retropharyngeal fluid collection without peripheral enhancement, not significantly changed. The nasopharynx, oropharynx, hypopharynx, and visualized larynx are adequately patent. Postsurgical changes of tonsillectomy. Enlarging right maxillary sinus air-fluid level. Worsening severe opacification of the frontal recesses and moderately severe opacification of the ethmoid sinuses. The mastoid air cells are clear. Limited images through the brain are without pathologic intracranial enhancement. Enlarged bilateral level II lymph nodes, similar to the prior exam. IMPRESSION: 1. Extensive stranding throughout the subcutaneous tissues of the right greater than left face, including the periorbital regions, as well as stranding along the bilateral jugular chains and anterior cervical neck. These findings have increased compared to the prior CT and are concerning for cellulitis in the appropriate clinical setting. Angioedema could also be considered. No peripherally enhancing collection to suggest abscess. No postseptal inflammation. 2. Small retropharyngeal fluid collection without peripheral enhancement, not significantly changed. 3. Worsening paranasal sinus mucosal disease. Enlarging right maxillary sinus air-fluid level can be seen in the setting of acute sinusitis. 4. Enlarged bilateral level II lymph nodes are similar to the prior exam and most likely reactive. Please note that all CT scans at this facility use dose modulation, iterative reconstruction, and/or weight-based dosing when appropriate to reduce radiation dose to as low as reasonably achievable. Dictated by Rolando Dickinson MD @ 10/20/2022 4:46:27 PM (Electronically Signed)
[2022-10-20] MEDS: VANCOMYCIN 750 MG in 0.9 % SODIUM CHLORIDE 250 ml 250 ML 257.5 MG IVPB (12:35)
[2022-10-20 15:00] VITALS: BP 123/59; PULSE 73; PULSE 89; RESP 18; TEMP 36.1; O2SAT 96
[2022-10-20 19:00] VITALS: BP 110/82; PULSE 77; RESP 18; TEMP 36.6; O2SAT 97
--- NOTE | 2022-10-20 19:19 | PC.NURSE ---
[id number]: Patient symptoms improving after dexamethasone and zyrtec given. Patient SL. Patient independent in room. Patient showered this afternoon. Patient face appears less swollen and red this evening. Patient encouraged to be up and mobile. Patient slept most of shift. Patient pain controlled with prn tylenol and morphine. Patient able to make needs known. Patient went for repeat CT today of face.
[2022-10-20] MEDS: ENOXAPARIN 40 MG/0.4 ML INJ SUBCUT (21:14)
[2022-10-20 23:00] VITALS: BP 115/88; PULSE 66; RESP 18; TEMP 36.6; O2SAT 93
[2022-10-21] MEDS: ACETAMINOPHEN 325 MG TABLET 650 MG PO ×3 (01:43→15:16)
[2022-10-21] MEDS: VANCOMYCIN 750 MG in 0.9 % SODIUM CHLORIDE 250 ml 250 ML 258 MG IVPB ×2 (01:46→13:49)
[2022-10-21] MEDS: SODIUM CHLORIDE 0.9 % (FLUSH) 10 ML SYRINGE 5 ML IVF ×2 (01:49→08:59)
[2022-10-21 03:00] VITALS: BP 106/68; PULSE 71; RESP 18; TEMP 36.6; O2SAT 94
[2022-10-21] MEDS: PIPERACILLIN/TAZOBACTAM 3.375 GM in 0.9 % SODIUM CHLORIDE Mini-bag 100 ML IVPB ×2 (03:17→08:45)
--- NOTE | 2022-10-21 06:08 | PC.NURSE ---
Shift note: Pt continuous on the IV antibiotics. Facia swelling and redness appears to subside. Vital signs are stable. Appetite is improving. Pt complained of headache at 0300 and Tylenol given which was effective. Pt has been sleeping most of the night.
[2022-10-21 06:48] LABS: Basophils Absolute Auto 0.02 K/uL (0.00-0.30); Basophils Percent Auto 0.2 % (0.0-3.0); Eosinophils Percent Auto 1.2 % (0.0-7.0); Hematocrit 30.1 % (33.0-51.0); Immature Granulocytes Abs Auto 0.23 K/uL (0.00-0.30); Immature Granulocytes Pct Auto 2.7 %; Lymphocytes Absolute Auto 1.93 K/uL (0.90-2.90); Lymphocytes Percent Auto 22.9 % (20-44); Mean Corpuscular HGB Conc 33 gm/dL (32-36); Mean Corpuscular Hemoglobin 28 pg (26-34); Mean Corpuscular Volume 86 fL (80-100); Monocytes Percent Auto 5.4 % (0.0-11.0); Neutrophils Absolute Auto 5.68 K/uL (1.7-7.0); Neutrophils Percent Auto 67.6 % (42.0-72.0); Platelet Count* 297 K/uL (140-440); Red Blood Count 3.52 m/uL (4.00-5.20); White Blood Count* 8.41 K/uL (4.50-11.00)
[2022-10-21 07:00] VITALS: BP 125/82; PULSE 63; RESP 18; TEMP 36.6; O2SAT 94; O2SAT 96
[2022-10-21 07:09] LABS: Slide Review Reflex No
[2022-10-21 07:12] LABS: Chloride* 104 mmol/L (96-114); Potassium* 3.4 mmol/L (3.6-5.1); Sodium* 137 mmol/L (135-149)
[2022-10-21 07:15] LABS: Blood Urea Nitrogen* 9 mg/dL (5-24); Carbon Dioxide* 28 mmol/L (20-32); Creatinine* 0.5 mg/dL (0.5-1.5); Est. Creatinine Clearance* 114.74; Estimated Glomerular Filt Rate 119 ml/min
[2022-10-21 07:16] LABS: Calcium* 8.9 mg/dL (8.4-10.6); Glucose* 108 mg/dL (60-115)
[2022-10-21] MEDS: ESCITALOPRAM 10 MG TABLET PO (08:44)
[2022-10-21] MEDS: OXYCODONE 5 MG TABLET PO ×2 (08:44→13:54)
[2022-10-21] MEDS: NICOTINE 21 MG PATCH 1 PATCH TRANSDERMA (08:49)
[2022-10-21] MEDS: ARIPiprazole 10 MG TABLET 2.5 MG PO (08:55)
--- NOTE | 2022-10-21 10:17 | PM.DS1 ---
DS: Providers Provider Date Seen: 10/21/22 Date of admission: 10/19/22 00:37 Primary care physician: Ana Maria Renner PA-C Admitting Clinician: Christie Hwang MD Attending Physician on discharge: Fozia Damian MD Date of Discharge: 10/21/22 DS: Diagnosis Discharge Diagnosis (1) Facial cellulitis: Status: Acute Problem details: - Zosyn and Vanco (10/18) - high risk given immunocompromised status - cellulitis on CT exams - significant clinical improvement 10/21 (2) Strep pharyngitis: Status: Acute (3) Human immunodeficiency virus (HIV) disease: Status: Acute Problem details: - Quiescent. On Triumeq, follows with ID as outpatient DS: Summary Hospital Course Hospital Course: Patient is a 42-year-old female, admitted to the hospital for strep pharyngitis and facial cellulitis on 10/19. Given immunocompromised status (h/o HIV, last CD4 count wnl at 746) she was admitted and placed on Vancomycin and Zosyn. On 10/20, she was noted to have worsening R eyelid edema, and repeat CT exhibited worsening cellulitis. By 10/21, patient had significantly improved and was able to open R eye on her own, requesting d/c home. She is tolerating soft/cold diet (pharyngitis). VS are stable, patient has been afebrile for >24 hours, blood cultures NGTD. Given + strep and need for MRSA coverage, patient is discharged home on both Augmentin and Bactrim with close PCP f/u - she understands return precautions. Status at Discharge Functional status at discharge: independent ambulation Overall status at discharge: patient is progressing back to baseline Time Spent with Patient Time attestation: Total time spent providing and/or coordinating discharge services: Time spent: Greater than 30 minutes Specific discharge activities: Medication reconciliation, patient education Exam Narrative: Exam Narrative: GEN: Alert and oriented, answering questions appropriately HEENT: Erythema and edema of R eyelid and R side of nose have improved. Patient is able to open eye 40-50% without assistance, EOMIs bilaterally without pain. + cervical adenopathy on R, no trismus, + irritation of R posterior oropharynx and uvula, airway patent CV: RRR, no concerning murmurs R: LCTA bilaterally without concerning wheezing, air movement adequate Ext: wwp, no concerning edema Skin: No other concerning skin lesions or rashes on exposed skin Neuro: Nonfocal Psych: Appropriate Const: Vital Signs, click to edit/add: Vital Signs - 24 hr 10/20/22 11:00 10/20/22 15:00 10/20/22 15:00 Temperature 98.1 F Pulse Rate [Pulse Oximeter] 89 89 Respiratory Rate 18 18 18 Blood Pressure [Le ft Arm] 119/77 Blood Pressure [Ri ght Arm] 103/67 Pulse Oximetry 96 96 Oxygen Delivery Hi thod Room Air Room Air 10/20/22 15:00 10/20/22 19:00 10/20/22 23:00 Temperature 97.0 F L 97.8 F Pulse Rate [Pulse Oximeter] 73 77 66 Respiratory Rate 18 18 18 Blood Pressure [Le ft Arm] 123/59 L 110/82 Blood Pressure [Ri ght Arm] Pulse Oximetry 96 97 Oxygen Delivery Hi thod Room Air Room Air 10/20/22 23:00 10/20/22 23:00 10/21/22 03:00 Temperature 97.8 F 97.8 F Pulse Rate [Pulse Oximeter] 66 71 Respiratory Rate 18 18 18 Blood Pressure [Le ft Arm] 115/88 106/68 Blood Pressure [Ri ght Arm] Pulse Oximetry 93 93 94 Oxygen Delivery Hi thod Room Air Room Air Room Air 10/21/22 07:00 10/21/22 07:00 10/21/22 07:00 Temperature 97.8 F Pulse Rate [Pulse Oximeter] 63 63 Respiratory Rate 18 18 18 Blood Pressure [Le ft Arm] 125/82 Blood Pressure [Ri ght Arm] Pulse Oximetry 96 94 Oxygen Delivery Hi thod Room Air Room Air DS: Data Data Completed and Pending Labs on day of discharge: Labs from last 24 hours 10/21/22 06:26 WBC 8.41 RBC 3.52 L Hgb 10.0 L Hct 30.1 L MCV 86 MCH 28 MCHC 33 RDW Coeff of Lesley 13.0 Plt Count 297 Neut % (Auto) 67.6 Lymph % (Auto) 22.9 Stewart % (Auto) 5.4 Eos % (Auto) 1.2 Baso % (Auto) 0.2 Neut # (Auto) 5.68 Lymph # (Auto) 1.93 Stewart # (Auto) 0.50 Eos # (Auto) 0.10 Baso # (Auto) 0.02 Sodium 137 Potassium 3.4 L Chloride 104 Carbon Dioxide 28 BUN 9 Creatinine 0.5 Estimated Creat Clear 114.74 Estimated GFR 119 Glucose 108 Calcium 8.9 C-Reactive Protein 9.0 H Preliminary micro results at discharge 10/18/22 21:35 Blood Culture - Preliminary Blood NO GROWTH AFTER 48 HOURS 10/18/22 21:20 Blood Culture - Preliminary Blood NO GROWTH AFTER 48 HOURS 10/18/22 21:43 Wound Culture - Preliminary Nose Discharge Plan Discharge Disposition: Home, Self-Care Date of Admission: 10/19/22 00:37 Attending Provider on Discharge: Fozia Damian Primary Care Provider: Ana Maria Renner Condition: Improved Anticipated Discharge Date/Time: 10/21/22 13:00 Discharge Medications: New amoxicillin-pot clavulanate 875-125 mg tablet 1 tab PO BID 8 Days Qty: 16 0RF sulfamethoxazole-trimethoprim [Bactrim DS] 800-160 mg tablet 1 tab PO Q12H 8 Days Qty: 16 0RF Continued clonazepam 1 mg tablet 0.5 - 1 mg PO QID PRN Patient Comments: 0.5 MG TID PRN, 1 MG HS PRN aripiprazole 2 mg tablet 2 mg PO DAILY Triumeq 600-50-300 mg tablet 1 tab PO DAILY escitalopram oxalate 10 mg tablet 10 mg PO DAILY Discharge Orders: Discharge Order (Routine); Ordered 10/21/22 Ordered By: Fozia Damian Additional Instructions: Soft, cold food for the next few days (yogurt, popsicles, smoothies). Check your temperature daily, we need to see you if it is above 100.4 or any other concerns. Try cold compresses on your R cheek and eye throughout the day to help with swelling. Activity Level: Activity as Tolerated Discharge Diet: Regular Diet Detail: see above Follow Up Appointments: Ana Maria Renner PA-C [Primary Care Provider] - (hospital f/u appt in 5-7 days) Forms: MyHealth Info Instructions
[2022-10-21 11:00] VITALS: BP 117/79; PULSE 72; RESP 18; TEMP 36.4; O2SAT 96
--- NOTE | 2022-10-21 16:18 | PC.NURSE ---
Patient vitally stable. PIV removed. All concerns addressed. Patient discharged to home.
== END 2022-10-21 15:15 | disposition home or self-care (01) | DRG 892 ==
LOC: ED 10-19 00:37 → MEDSURG 10-19 00:53
PROVIDERS: Family Medicine; Internal Medicine; Admitting Provider Family Medicine; Emergency Provider Family Medicine; PCP Student in an Organized Health Care Education/Training Program; Visit Provider Family Medicine
DX: A41.9 Sepsis, unspecified organism (principal); L03.211 Cellulitis of face; J02.0 Streptococcal pharyngitis; F17.210 Nicotine dependence, cigarettes, uncomplicated; B20 Human immunodeficiency virus [HIV] disease; G47.33 Obstructive sleep apnea (adult) (pediatric); E78.1 Pure hyperglyceridemia; F98.8 Other specified behavioral and emotional disorders with onset usually occurring in childhood and adolescence; F32.9 Major depressive disorder, single episode, unspecified; F41.9 Anxiety disorder, unspecified; F10.21 Alcohol dependence, in remission; M41.9 Scoliosis, unspecified
CPT/HCPCS: 36415; 70487; 70491; 71046; 80048; 80053; 80069; 82330; 83605; 83735; 85025; 85027; 86140; 87040; 87070; 87186; 87631; 87651; 99285; 99291; A9270; J1650; J1885; J2270; J2543; J3370; J7030; J7050; J7120; Q9967; S4990

== ENCOUNTER 2023-01-12 16:21 | Emergency (ER) | payer BC, SELFPAY ==
[2023-01-12 16:27] VITALS: BP 109/73; PULSE 104; RESP 16; TEMP 36.6; O2SAT 99; BMI 18.3
[2023-01-12 16:41] LABS: Appearance Urine Clear (Clear); Bilirubin Urine Negative (Negative); Blood Urine Negative (Negative); Color Urine Yellow (Yellow); Glucose Urine Negative (Negative); Ketones Urine Negative (Negative); Leukocyte Esterase Urine Negative (Negative); Nitrite Urine Positive (Negative); Protein Urine Negative (Negative); Specific Gravity Urine >= 1.030 (1.000-1.030); Urobilinogen Urine 0.2 (0.2-1.0); pH Urine 5.5 (5.0-8.5)
[2023-01-12 17:13] LABS: Bacteria Urine Few; Squamous Epithelial Cell Urine Moderate (None-Few)
== END 2023-01-12 19:11 | disposition other institution (70) ==
PROVIDERS: Emergency Provider Family Medicine; PCP Student in an Organized Health Care Education/Training Program
DX: R45.851 Suicidal ideations (principal); F32.9 Major depressive disorder, single episode, unspecified
CPT/HCPCS: 81001; 87086; 87186; 99285

== ENCOUNTER 2023-01-18 14:54 | Emergency (ER) | payer BC, SELFPAY ==
[2023-01-18 15:23] VITALS: BP 122/84; PULSE 108; RESP 16; TEMP 36.8; O2SAT 99; BMI 18.9
--- NOTE | 2023-01-18 15:49 | ED_ITS ---
HPI - Psych General Time Seen by Provider: 15:49 <Henna Rowley MD - Last Filed: 01/20/23 01:20> Date Seen: 01/18/23 <Henna Rowley MD - Last Filed: 01/20/23 01:20> Chief Complaint: Psychiatric Problem/Disorder <Henna Rowley MD - Last Filed: 01/20/23 01:20> Stated Complaint: mental health <Henna Rowley MD - Last Filed: 01/20/23 01:20> Time Seen by Provider: 01/18/23 15:32 <Henna Rowley MD - Last Filed: 01/20/23 01:20> Source: patient, family and RN notes reviewed <Henna Rowley MD - Last Filed: 01/20/23 01:20> Mode of arrival: ambulatory <Henna Rowley MD - Last Filed: 01/20/23 01:20> Limitations: no limitations <Henna Rowley MD - Last Filed: 01/20/23 01:20> History of Present Illness HPI Narrative: Delores is a 42-year-old female coming in accompanied by her mom with concern of suicidal ideation. She told her mom that she just wanted to end it all. She gets psychiatric medications from a provider in [place] but states she has been switching her cares over to [facility] but has not completed this. She has a history of depression, prior suicide attempt in 2017 with medication ingestion of her own medicines. She has went through chemical dependency treatment before, had been free use for about 6 and half years. She relays to me that she started with cocaine use in October, has morphed into methamphetamine use. She has not used meth since yesterday, has been smoking 3 to 4 times a day. She states she is feeling physically ill, nausea, generalized achiness but no fevers, attributes this to being out of her clonazepam for a couple days now. She admits that she has probably used it more frequently than what she should be. She also was in the ER awhile ago, did not wait for urinalysis results, did grow E coli which was pansensitive. This result was from January 12. She states she is still symptomatic. I did request that we get a urinalysis so I could review this again. She is feeling anxious in jittery internally. Her thought was to overdose with heroin by injecting it. She denies any current att empt or ingestion at this time. <Henna Rowley MD - Last Filed: 01/20/23 01:20> MD complaint: suicidal ideation <Henna Rowley MD - Last Filed: 01/20/23 01:20> Related Data Home Medications: Home Medications Medication Instructions Recorded Confirmed abacavir 600 mg-dolutegravir 50 1 tab PO DAILY 10/18/22 01/18/23 mg-lamivudine 300 mg tablet (Triumeq) aripiprazole 2 mg tablet 2 mg PO DAILY 10/18/22 01/18/23 clonazepam 1 mg tablet 0.5 - 1 mg PO QID PRN 10/18/22 01/18/23 escitalopram oxalate 10 mg tablet 10 mg PO DAILY 10/18/22 01/18/23 Previous Rx's Medication Instructions Recorded amoxicillin 875 mg-potassium 1 tab PO BID 8 days #16 tabs 10/21/22 clavulanate 125 mg tablet sulfamethoxazole 800 1 tab PO Q12H 8 days #16 tabs 10/21/22 mg-trimethoprim 160 mg tablet (Bactrim DS) <Henna Rowley MD - Last Filed: 01/20/23 01:20> Allergies/Adverse Reactions: Allergies Allergy/AdvReac Type Severity Reaction Status Date / Time No Known Drug Allergies Allergy Verified 01/18/23 15:21 <Henna Rowley MD - Last Filed: 01/20/23 01:20> Review of Systems Status of ROS: Reports: 6 or more systems reviewed and unremarkable except as noted in History and below <Henna Rowley MD - Last Filed: 01/20/23 01:20> [facility] Medical History: Medical History Migraine ?G43.909 - Migraine, unspecified, not intractable, without status migrainosus (ICD-10) Inflammatory arthritis ?M19.90 - Unspecified osteoarthritis, unspecified site (ICD-10) High triglycerides ?E78.1 - Pure hyperglyceridemia (ICD-10) Facet hypertrophy of lumbosacral region ?M47.817 - Spondylosis without myelopathy or radiculopathy, lumbosacral region (ICD-10) Attention deficit disorder (ADD) ?F98.8 - Other specified behavioral and emotional disorders with onset usually occurring in childhood and adolescence (ICD-10) LGSIL (low grade squamous intraepithelial dysplasia) Post traumatic stress disorder (PTSD) ?F43.10 - Post-traumatic stress disorder, unspecified (ICD-10) Tobacco dependence ?F17.200 - Nicotine dependence, unspecified, uncomplicated (ICD-10) Scoliosis ?M41.9 - Scoliosis, unspecified (ICD-10) Obstructive sleep apnea ?G47.33 - Obstructive sleep apnea (adult) (pediatric) (ICD-10) Major depressive disorder ?F32.9 - Major depressive disorder, single episode, unspecified (ICD-10) Anxiety disorder ?F41.9 - Anxiety disorder, unspecified (ICD-10) Human immunodeficiency virus (HIV) disease ?B20 - Human immunodeficiency virus [HIV] disease (ICD-10) Acne ?L70.9 - Acne, unspecified (ICD-10) Alcoholism in remission ?F10.21 - Alcohol dependence, in remission (ICD-10) <Henna Rowley MD - Last Filed: 01/20/23 01:20> Surgical History: Surgical History [place] teeth extracted ?K08.409 - Partial loss of teeth, unspecified cause, unspecified class (ICD- 10) History of tubal ligation ?Z98.51 - Tubal ligation status (ICD-10) Hx of tonsillectomy ?Z90.89 - Acquired absence of other organs (ICD-10) Status post colonoscopy with polypectomy ?Z98.890 - Other specified postprocedural states (ICD-10) H/O section ?Z98.891 - History of uterine scar from previous surgery (ICD-10) Status post rhinoplasty ?Z98.890 - Other specified postprocedural states (ICD-10) <Henna Rowley MD - Last Filed: 01/20/23 01:20> Family History: Family History Mother Colon cancer, Onset Age: 49 <Henna Rowley MD - Last Filed: 01/20/23 01:20> Social History: Social History What is your current living situation?: I presently have a place to live Problems where you live: no known problems Problems where you live details: n/a In the past 12 months, utilities in danger of being shut off: no In past 12 months, lack of transportation kept you from medical appts, meetings, work, or getting things needed for daily living: no In the past 12 mos, have been you worried that your food would run out before you had money to buy more?: never true In the past 12 mos, the food you bought just didn't last and you didn't have money to buy more?: never true Highest level of school completed/degree received: GED or equivalent Smoking Status: Current every day smoker What tobacco products do you use: cigarettes Smoking packs per day: 1 Smoking cigarettes per day: 20.0 How often do you have a drink containing alcohol: never How often do you have six or more drinks on one occasion: Never AUDIT-C Alcohol total score: 0 Non-prescribed substance use: amphetamines/methamphetamines Caffeine: Yes (2 cans of Mt dew) How often does anyone, including family, friends and others, physically hurt you : never How often does anyone, including family, friends and others, insult or talk down to you: never How often does anyone, including family, friends and others, threaten you with harm: never How often does anyone, including family, friends and others, scream or curse at you: never service: No <Henna Rowley MD - Last Filed: 01/20/23 01:20> Exam Const: Vital Signs, click to edit/add: Vital Signs - 24 hr 01/19/23 03:23 01/19/23 08:21 Temperature 98.2 F 97.0 F L Pulse Rate [Pulse Oximeter] 99 88 Respiratory Rate 18 16 Blood Pressure [Ri ght Upper Arm] 112/68 106/68 Pulse Oximetry 98 98 Oxygen Delivery Me thod Room Air Room Air Delores is lying on the bed, curled up on her right side. Speech is normal, overall has poor eye contact. Looks tired, overall affect is flat, depressed mood verses being very tired. Conjugate gaze, sclera clear, neck is supple, no thyromegaly masses or nodules. Lungs are clear, good air entry, no wheezing or crackles. CV regular rate and rhythm no murmur, normal S1 and S2. Abdomen is soft, no rebound or guarding, nontender. No rash noted of skin. Moves all extremities equally. <Henna Rowley MD - Last Filed: 01/20/23 01:20> Vital Signs, click to edit/add: Vital Signs - 24 hr 01/19/23 03:23 01/19/23 08:21 Temperature 98.2 F 97.0 F L Pulse Rate [Pulse Oximeter] 99 88 Respiratory Rate 18 16 Blood Pressure [Ri ght Upper Arm] 112/68 106/68 Pulse Oximetry 98 98 Oxygen Delivery Me thod Room Air Room Air <Evelin Gautam MD - Last Filed: 01/19/23 08:30> Vital Signs, click to edit/add: Vital Signs - 24 hr 01/19/23 03:23 01/19/23 08:21 Temperature 98.2 F 97.0 F L Pulse Rate [Pulse Oximeter] 99 88 Respiratory Rate 18 16 Blood Pressure [Ri ght Upper Arm] 112/68 106/68 Pulse Oximetry 98 98 Oxygen Delivery Me thod Room Air Room Air <Miki Rincon MD - Last Filed: 01/19/23 08:17> Documenting provider has reviewed patient's vital signs: yes <Henna Rowley MD - Last Filed: 01/20/23 01:20> Course Course ED Course: This is a 42-year-old female endorsing suicidal ideation with underlying drug addiction with methamphetamine use. I will give her a dose of 1 mg oral Ativan at this time. Will do telehealth consultation, get appropriate lab work. Will have to see what telehealth finds on full history taking with this patient. <Henna Rowley MD - Last Filed: 01/20/23 01:20> Reevaluation(s) Time of Reevaluation #1: 16:49 <Henna Rowley MD - Last Filed: 01/20/23 01:20> Reevaluation #1: Negative test in UTI still positive for nitrates. Prior urine culture shows pansensitive UTI with E coli. Will initiate cephalexin 500 mg orally here now. Awaiting other labs and telehealth consultation. <Henna Rowley MD - Last Filed: 01/20/23 01:20> Time of Reevaluation #2: 23:15 <Henna Rowley MD - Last Filed: 01/20/23 01:20> Reevaluation #2: Did discuss with patient her Abilify and Lexapro, she states she really has not been taking them lately because they do not work. She does not want these prescribed or given while here. We are still waiting placement. She is comfortable at this time. Did give her another dose of oral Ativan. <Henna Rowley MD - Last Filed: 01/20/23 01:20> Time of Reevaluation #3: 01:09 <Evelin Gautam MD - Last Filed: 01/19/23 08:30> Reevaluation #3: Patient accepted to [facility]. Will be transferring, voluntary. Transport hold displaced. <Evelin Gautam MD - Last Filed: 01/19/23 08:30> Additional Reevaluation(s): 8:16 a.m. on 01/19- Dr. Miki Rincon-I assumed care of this patient at shift change. She has been stable overnight. Awaiting transfer to an inpatient mental facility. Transfer delayed by EMS capacity. At about 10 after 8 we were informed that EMS was going to be available for transport through [facility]. I reviewed the patient's case. She did have UTI. She received a dose of cephalexin yesterday. She will need to finish her course. She will be able to fill a 7 day prescription through [facility] and this will allow her to take her medications with her. Prescription for cephalexin 500 mg b.i.d. for 7 days provided. Recent culture grew pansensitive E coli. Should be transferred by EMS for mental health care. <Miki Rincon MD - Last Filed: 01/19/23 08:17> Consultations Consultation #1: Have given telehealth my synopsis on this patient. They will be interviewing her shortly. 5:36 p.m.: [place] from telehealth has evaluated the patient. She believes the patient to need placement as the patient cannot contract for safety. She did state that she would probably go get the heroin and overdose with if discharged. Patient remains here voluntarily at this time but is certainly holdable should she decide to leave. Patient is subsequently notified of this. <Henna Rowley MD - Last Filed: 01/20/23 01:20> Time: 17:04 <Henna Rowley MD - Last Filed: 01/20/23 01:20> Vital Signs Vital signs: Initial Vital Signs Temperature 98.3 F 01/18/23 15:23 Temperature Source Temporal Artery Scan 01/18/23 15:23 Pulse Rate 108 H 01/18/23 15:23 Pulse Rhythm Regular 01/18/23 15:23 Pulse Strength 3+ Normal 01/18/23 15:23 Respiratory Rate 16 01/18/23 15:23 Blood Pressure 122/84 01/18/23 15:23 Blood Pressure Mean 96 01/18/23 15:23 Blood Pressure Position Sitting 01/18/23 15:23 Pulse Oximetry 99 01/18/23 15:23 Oxygen Delivery Method Room Air 01/18/23 15:23 Vital Signs Temperature 98.3 F 01/18/23 15:23 Pulse Rate 108 H 01/18/23 15:23 Respiratory Rate 16 01/18/23 15:23 Blood Pressure 122/84 01/18/23 15:23 Pulse Oximetry 99 01/18/23 15:23 Oxygen Delivery Method Room Air 01/18/23 15:23 Temperature 97.0 F L 01/19/23 08:21 Pulse Rate 88 01/19/23 08:21 Respiratory Rate 16 01/19/23 08:21 Blood Pressure 106/68 01/19/23 08:21 Pulse Oximetry 98 01/19/23 08:21 Oxygen Delivery Method Room Air 01/19/23 08:21 <Henna Rowley MD - Last Filed: 01/20/23 01:20> Initial Vital Signs Temperature 98.3 F 01/18/23 15:23 Temperature Source Temporal Artery Scan 01/18/23 15:23 Pulse Rate 108 H 01/18/23 15:23 Pulse Rhythm Regular 01/18/23 15:23 Pulse Strength 3+ Normal 01/18/23 15:23 Respiratory Rate 16 01/18/23 15:23 Blood Pressure 122/84 01/18/23 15:23 Blood Pressure Mean 96 01/18/23 15:23 Blood Pressure Position Sitting 01/18/23 15:23 Pulse Oximetry 99 01/18/23 15:23 Oxygen Delivery Method Room Air 01/18/23 15:23 Vital Signs Temperature 98.3 F 01/18/23 15:23 Pulse Rate 108 H 01/18/23 15:23 Respiratory Rate 16 01/18/23 15:23 Blood Pressure 122/84 01/18/23 15:23 Pulse Oximetry 99 01/18/23 15:23 Oxygen Delivery Method Room Air 01/18/23 15:23 Temperature 97.0 F L 01/19/23 08:21 Pulse Rate 88 01/19/23 08:21 Respiratory Rate 16 01/19/23 08:21 Blood Pressure 106/68 01/19/23 08:21 Pulse Oximetry 98 01/19/23 08:21 Oxygen Delivery Method Room Air 01/19/23 08:21 <Evelin Gautam MD - Last Filed: 01/19/23 08:30> Initial Vital Signs Temperature 98.3 F 01/18/23 15:23 Temperature Source Temporal Artery Scan 01/18/23 15:23 Pulse Rate 108 H 01/18/23 15:23 Pulse Rhythm Regular 01/18/23 15:23 Pulse Strength 3+ Normal 01/18/23 15:23 Respiratory Rate 16 01/18/23 15:23 Blood Pressure 122/84 01/18/23 15:23 Blood Pressure Mean 96 01/18/23 15:23 Blood Pressure Position Sitting 01/18/23 15:23 Pulse Oximetry 99 01/18/23 15:23 Oxygen Delivery Method Room Air 01/18/23 15:23 Vital Signs Temperature 98.3 F 01/18/23 15:23 Pulse Rate 108 H 01/18/23 15:23 Respiratory Rate 16 01/18/23 15:23 Blood Pressure 122/84 01/18/23 15:23 Pulse Oximetry 99 01/18/23 15:23 Oxygen Delivery Method Room Air 01/18/23 15:23 Temperature 97.0 F L 01/19/23 08:21 Pulse Rate 88 01/19/23 08:21 Respiratory Rate 16 01/19/23 08:21 Blood Pressure 106/68 01/19/23 08:21 Pulse Oximetry 98 01/19/23 08:21 Oxygen Delivery Method Room Air 01/19/23 08:21 <Miki Rincon MD - Last Filed: 01/19/23 08:17> MDM - Psych Lab Data Attestation: I reviewed the patient's lab results. <Henna Rowley MD - Last Filed: 01/20/23 01:20> Labs: Lab Results 01/18/23 01/18/23 01/18/23 Range/Units 15:48 16:00 16:15 WBC 4.32 L (4.50-11.00) K/uL RBC 5.35 H (4.00-5.20) m/uL Hgb 15.3 (12.0-16.0) gm/dL Hct 44.3 (33.0-51.0) % MCV 83 (80-100) fL MCH 29 (26-34) pg MCHC 35 (32-36) gm/dL RDW Coeff of Lesley 13.4 (11.5-15.5) % Plt Count 372 (140-440) K/uL Neut % (Auto) 60.2 (42.0-72.0) % Lymph % (Auto) 31.5 (20-44) % [place] % (Auto) 6.5 (0.0-11.0) % Eos % (Auto) 1.6 (0.0-7.0) % Baso % (Auto) 0.2 (0.0-3.0) % Neut # (Auto) 2.60 (1.7-7.0) K/uL Lymph # (Auto) 1.40 (0.90-2.90) K/uL [place] # (Auto) 0.30 (0.00-0.90) K/UL Eos # (Auto) 0.10 (0.00-0.50) K/uL Baso # (Auto) 0.00 (0.00-0.30) K/uL Abs Immat Gran (auto) 0.00 (0.00-0.30) K/uL Imm/Tot Granulo (auto) 0.0 % Sodium 138 (135-149) mmol/L Potassium 3.8 (3.6-5.1) mmol/L Chloride 105 (96-114) mmol/L Carbon Dioxide 23 (20-32) mmol/L Anion Gap 10 (7-15) mEq/L BUN 13 (5-24) mg/dL Creatinine 0.7 (0.5-1.5) mg/dL Estimated Creat Clear 74.20 Estimated GFR 110 ml/min Glucose 103 (60-115) mg/dL Calcium 10.5 (8.4-10.6) mg/dL Total Bilirubin 0.6 (0.1-1.5) mg/dL AST 21 (12-35) U/L ALT 22 (4-35) U/L Alkaline Phosphatase 71 (40-150) U/L Total Protein 8.3 (6.0-8.3) g/dL Albumin 4.9 (3.3-5.0) g/dL TSH 1.180 (0.270-4.200) uIU/mL Urine Color Yellow (Yellow) Urine Appearance Cloudy A (Clear) Urine pH >= 9.0 H (5.0-8.5) Ur Specific [place] 1.015 (1.000-1.030) Urine Protein 2+ A (Negative) Urine Glucose (UA) Negative (Negative) Urine Ketones Negative (Negative) Urine Blood Negative (Negative) Urine Nitrite Positive A (Negative) Urine Bilirubin Negative (Negative) Urine Urobilinogen 1.0 (0.2-1.0) Ur Leukocyte Esterase Negative (Negative) Urine RBC 0-2 (0-2) Urine WBC 0-2 (0-5) Ur Squamous Epith Cells Moderate A (None-Few) Urine Bacteria Many A (None) Urine HCG, Qual Negative (Negative) Salicylates < 1.0 L (1.0-10) mg/dL Urine Opiates Screen Negative (Negative) Ur Oxycodone Screen Negative (Negative) Urine Methadone Screen Negative (Negative) Ur Propoxyphene Screen Negative (Negative) Acetaminophen < 10.0 L (10.0-30.0) ug/mL Ur Barbiturates Screen Negative (Negative) U Tricyclic Antidepress Negative (Negative) Ur Phencyclidine Scrn Negative (Negative) Ur Amphetamines Screen Negative (Negative) U Methamphetamines Scrn POSITIVE A (Negative) U Benzodiazepines Scrn Negative (Negative) Urine Cocaine Screen Negative (Negative) U Marijuana (THC) Screen Negative (Negative) Ur Drug Screen Comment See Note Ethyl Alcohol < 0.01 L (0.01-0.03) % SARS-CoV-2 (PCR) Negative SARS-CoV-2 (Negative) <Henna Rowley MD - Last Filed: 01/20/23 01:20> Lab Results 01/18/23 01/18/23 01/18/23 Range/Units 15:48 16:00 16:15 WBC 4.32 L (4.50-11.00) K/uL RBC 5.35 H (4.00-5.20) m/uL Hgb 15.3 (12.0-16.0) gm/dL Hct 44.3 (33.0-51.0) % MCV 83 (80-100) fL MCH 29 (26-34) pg MCHC 35 (32-36) gm/dL RDW Coeff of Lesley 13.4 (11.5-15.5) % Plt Count 372 (140-440) K/uL Neut % (Auto) 60.2 (42.0-72.0) % Lymph % (Auto) 31.5 (20-44) % [place] % (Auto) 6.5 (0.0-11.0) % Eos % (Auto) 1.6 (0.0-7.0) % Baso % (Auto) 0.2 (0.0-3.0) % Neut # (Auto) 2.60 (1.7-7.0) K/uL Lymph # (Auto) 1.40 (0.90-2.90) K/uL [place] # (Auto) 0.30 (0.00-0.90) K/UL Eos # (Auto) 0.10 (0.00-0.50) K/uL Baso # (Auto) 0.00 (0.00-0.30) K/uL Abs Immat Gran (auto) 0.00 (0.00-0.30) K/uL Imm/Tot Granulo (auto) 0.0 % Sodium 138 (135-149) mmol/L Potassium 3.8 (3.6-5.1) mmol/L Chloride 105 (96-114) mmol/L Carbon Dioxide 23 (20-32) mmol/L Anion Gap 10 (7-15) mEq/L BUN 13 (5-24) mg/dL Creatinine 0.7 (0.5-1.5) mg/dL Estimated Creat Clear 74.20 Estimated GFR 110 ml/min Glucose 103 (60-115) mg/dL Calcium 10.5 (8.4-10.6) mg/dL Total Bilirubin 0.6 (0.1-1.5) mg/dL AST 21 (12-35) U/L ALT 22 (4-35) U/L Alkaline Phosphatase 71 (40-150) U/L Total Protein 8.3 (6.0-8.3) g/dL Albumin 4.9 (3.3-5.0) g/dL TSH 1.180 (0.270-4.200) uIU/mL Urine Color Yellow (Yellow) Urine Appearance Cloudy A (Clear) Urine pH >= 9.0 H (5.0-8.5) Ur Specific [place] 1.015 (1.000-1.030) Urine Protein 2+ A (Negative) Urine Glucose (UA) Negative (Negative) Urine Ketones Negative (Negative) Urine Blood Negative (Negative) Urine Nitrite Positive A (Negative) Urine Bilirubin Negative (Negative) Urine Urobilinogen 1.0 (0.2-1.0) Ur Leukocyte Esterase Negative (Negative) Urine RBC 0-2 (0-2) Urine WBC 0-2 (0-5) Ur Squamous Epith Cells Moderate A (None-Few) Urine Bacteria Many A (None) Urine HCG, Qual Negative (Negative) Salicylates < 1.0 L (1.0-10) mg/dL Urine Opiates Screen Negative (Negative) Ur Oxycodone Screen Negative (Negative) Urine Methadone Screen Negative (Negative) Ur Propoxyphene Screen Negative (Negative) Acetaminophen < 10.0 L (10.0-30.0) ug/mL Ur Barbiturates Screen Negative (Negative) U Tricyclic Antidepress Negative (Negative) Ur Phencyclidine Scrn Negative (Negative) Ur Amphetamines Screen Negative (Negative) U Methamphetamines Scrn POSITIVE A (Negative) U Benzodiazepines Scrn Negative (Negative) Urine Cocaine Screen Negative (Negative) U Marijuana (THC) Screen Negative (Negative) Ur Drug Screen Comment See Note Ethyl Alcohol < 0.01 L (0.01-0.03) % SARS-CoV-2 (PCR) Negative SARS-CoV-2 (Negative) <Evelin Gautam MD - Last Filed: 01/19/23 08:30> Lab Results 01/18/23 01/18/23 01/18/23 Range/Units 15:48 16:00 16:15 WBC 4.32 L (4.50-11.00) K/uL RBC 5.35 H (4.00-5.20) m/uL Hgb 15.3 (12.0-16.0) gm/dL Hct 44.3 (33.0-51.0) % MCV 83 (80-100) fL MCH 29 (26-34) pg MCHC 35 (32-36) gm/dL RDW Coeff of [place]el[place] 13.4 (11.5-15.5) % Plt Count 372 (140-440) K/uL Neut % (Auto) 60.2 (42.0-72.0) % Lymph % (Auto) 31.5 (20-44) % [place] % (Auto) 6.5 (0.0-11.0) % Eos % (Auto) 1.6 (0.0-7.0) % Baso % (Auto) 0.2 (0.0-3.0) % Neut # (Auto) 2.60 (1.7-7.0) K/uL Lymph # (Auto) 1.40 (0.90-2.90) K/uL [place] # (Auto) 0.30 (0.00-0.90) K/UL Eos # (Auto) 0.10 (0.00-0.50) K/uL Baso # (Auto) 0.00 (0.00-0.30) K/uL Abs Immat Gran (auto) 0.00 (0.00-0.30) K/uL Imm/Tot Granulo (auto) 0.0 % Sodium 138 (135-149) mmol/L Potassium 3.8 (3.6-5.1) mmol/L Chloride 105 (96-114) mmol/L Carbon Dioxide 23 (20-32) mmol/L Anion Gap 10 (7-15) mEq/L BUN 13 (5-24) mg/dL Creatinine 0.7 (0.5-1.5) mg/dL Estimated Creat Clear 74.20 Estimated GFR 110 ml/min Glucose 103 (60-115) mg/dL Calcium 10.5 (8.4-10.6) mg/dL Total Bilirubin 0.6 (0.1-1.5) mg/dL AST 21 (12-35) U/L ALT 22 (4-35) U/L Alkaline Phosphatase 71 (40-150) U/L Total Protein 8.3 (6.0-8.3) g/dL Albumin 4.9 (3.3-5.0) g/dL TSH 1.180 (0.270-4.200) uIU/mL Urine Color Yellow (Yellow) Urine Appearance Cloudy A (Clear) Urine pH >= 9.0 H (5.0-8.5) Ur Specific [place] 1.015 (1.000-1.030) Urine Protein 2+ A (Negative) Urine Glucose (UA) Negative (Negative) Urine Ketones Negative (Negative) Urine Blood Negative (Negative) Urine Nitrite Positive A (Negative) Urine Bilirubin Negative (Negative) Urine Urobilinogen 1.0 (0.2-1.0) Ur Leukocyte Esterase Negative (Negative) Urine RBC 0-2 (0-2) Urine WBC 0-2 (0-5) Ur Squamous Epith Cells Moderate A (None-Few) Urine Bacteria Many A (None) Urine HCG, Qual Negative (Negative) Salicylates < 1.0 L (1.0-10) mg/dL Urine Opiates Screen Negative (Negative) Ur Oxycodone Screen Negative (Negative) Urine Methadone Screen Negative (Negative) Ur Propoxyphene Screen Negative (Negative) Acetaminophen < 10.0 L (10.0-30.0) ug/mL Ur Barbiturates Screen Negative (Negative) U Tricyclic Antidepress Negative (Negative) Ur Phencyclidine Scrn Negative (Negative) Ur Amphetamines Screen Negative (Negative) U Methamphetamines Scrn POSITIVE A (Negative) U Benzodiazepines Scrn Negative (Negative) Urine Cocaine Screen Negative (Negative) U Marijuana (THC) Screen Negative (Negative) Ur Drug Screen Comment See Note Ethyl Alcohol < 0.01 L (0.01-0.03) % SARS-CoV-2 (PCR) Negative SARS-CoV-2 (Negative) <Miki Rincon MD - Last Filed: 01/19/23 08:17> Discharge Plan Discharge Clinical Impression: Depression with suicidal ideation, Urinary tract infection <Henna Rowley MD - Last Filed: 01/20/23 01:20> Patient Disposition: Xfer Psychiatric Hosp <Henna Rowley MD - Last Filed: 01/20/23 01:20> Instructions: Urinary Tract Infection in Women (ED) <Henna Rowley MD - Last Filed: 01/20/23 01:20> Additional Instructions: Will need to complete a 5 day course of cephalexin. <Henna Rowley MD - Last Filed: 01/20/23 01:20> Prescriptions: No Action clonazepam 1 mg tablet 0.5 - 1 mg PO QID PRN Patient Comments: 0.5 MG TID PRN, 1 MG HS PRN aripiprazole 2 mg tablet 2 mg PO DAILY Triumeq 600-50-300 mg tablet 1 tab PO DAILY escitalopram oxalate 10 mg tablet 10 mg PO DAILY amoxicillin-pot clavulanate 875-125 mg tablet 1 tab PO BID 8 Days Qty: 16 0RF sulfamethoxazole-trimethoprim [Bactrim DS] 800-160 mg tablet 1 tab PO Q12H 8 Days Qty: 16 0RF <Henna Rowley MD - Last Filed: 01/20/23 01:20> Stand Alone Forms: [facility] Info Instructions <Henna Rowley MD - Last Filed: 01/20/23 01:20>
[2023-01-18] MEDS: LORazepam 1 MG TABLET PO ×2 (16:10→22:43)
[2023-01-18 16:28] LABS: Appearance Urine Cloudy (Clear); Bilirubin Urine Negative (Negative); Blood Urine Negative (Negative); Color Urine Yellow (Yellow); Glucose Urine Negative (Negative); Ketones Urine Negative (Negative); Leukocyte Esterase Urine Negative (Negative); Nitrite Urine Positive (Negative); Protein Urine 2+ (Negative); Specific Gravity Urine 1.015 (1.000-1.030); Ur HCG Qualitative* Negative (Negative)
[2023-01-18 16:36] LABS: Amphetamine Screen Urine Negative (Negative); Barbiturate Screen Urine Negative (Negative); Benzodiazepines Screen Urine Negative (Negative); Cannabinoid Screen Urine Negative (Negative); Cocaine Screen Urine Negative (Negative); Methadone Screen Urine Negative (Negative); Methamphetamines Screen Urine POSITIVE (Negative); Opiate Screen Urine Negative (Negative); Oxycodone Screen Urine Negative (Negative); Phencyclidine Screen Urine Negative (Negative); Tricyclic Antidepressant Urine Negative (Negative); pH Urine >= 9.0 (5.0-8.5)
[2023-01-18 16:40] LABS: RBC Urine 0-2 (0-2); WBC Urine 0-2 (0-5)
[2023-01-18 16:41] LABS: Bacteria Urine Many; Squamous Epithelial Cell Urine Moderate (None-Few)
[2023-01-18 16:43] LABS: Albumin* 4.9 g/dL (3.3-5.0); Chloride* 105 mmol/L (96-114)
[2023-01-18 16:44] LABS: Potassium* 3.8 mmol/L (3.6-5.1); Sodium* 138 mmol/L (135-149)
[2023-01-18 16:46] LABS: Alkaline Phosphatase* 71 U/L (40-150); Anion Gap 10 mEq/L (7-15); Aspartate Amino Transferase* 21 U/L (12-35); Bilirubin Total* 0.6 mg/dL (0.1-1.5); Blood Urea Nitrogen* 13 mg/dL (5-24); Carbon Dioxide* 23 mmol/L (20-32); Creatinine* 0.7 mg/dL (0.5-1.5); Estimated Glomerular Filt Rate 110 ml/min; Glucose* 103 mg/dL (60-115); Total Protein* 8.3 g/dL (6.0-8.3)
[2023-01-18 16:47] LABS: Alanine Aminotransferase* 22 U/L (4-35); Calcium* 10.5 mg/dL (8.4-10.6)
[2023-01-18 16:49] LABS: Acetaminophen* < 10.0 ug/mL (10.0-30.0); Ethanol* < 0.01 % (0.01-0.03); Salicylate* < 1.0 mg/dL (1.0-10)
[2023-01-18 16:55] LABS: Basophils Percent Auto 0.2 % (0.0-3.0); Eosinophils Percent Auto 1.6 % (0.0-7.0); Hematocrit 44.3 % (33.0-51.0); Hemoglobin* 15.3 gm/dL (12.0-16.0); Lymphocytes Percent Auto 31.5 % (20-44); Mean Corpuscular HGB Conc 35 gm/dL (32-36); Mean Corpuscular Hemoglobin 29 pg (26-34); Mean Corpuscular Volume 83 fL (80-100); Monocytes Percent Auto 6.5 % (0.0-11.0); Neutrophils Percent Auto 60.2 % (42.0-72.0); Platelet Count* 372 K/uL (140-440); RDW Coefficient of Variation % 13.4 % (11.5-15.5); Red Blood Count 5.35 m/uL (4.00-5.20); White Blood Count* 4.32 K/uL (4.50-11.00)
[2023-01-18] MEDS: cephALEXin 500 MG CAPSULE PO (16:59)
[2023-01-18 17:10] LABS: SARS PCR* Negative SARS-CoV-2 (Negative)
[2023-01-18 17:11] LABS: Slide Review Reflex No
[2023-01-18 18:10] VITALS: BP 111/76; PULSE 104; RESP 16; O2SAT 97
--- NOTE | 2023-01-18 20:45 | ED.NURSE ---
Pt is resting in bed, quiet and reclusive. She is cooperative.
[2023-01-18 22:15] VITALS: BP 115/81; PULSE 110; RESP 18; O2SAT 98
--- NOTE | 2023-01-18 22:19 | ED.NURSE ---
Pt reporting she is not feeling super hopeful, was tearful when getting her vitals.
--- NOTE | 2023-01-18 23:06 | ED.NURSE ---
pt given washcloths and toothbrush/toothpaste.
--- NOTE | 2023-01-18 23:47 | ED.NURSE ---
Pt report given off to oncoming RN>
[2023-01-19 03:23] VITALS: BP 112/68; PULSE 99; RESP 18; TEMP 36.8; O2SAT 98
--- NOTE | 2023-01-19 07:25 | ED.NURSE ---
pt. monitored via camera overnight. vitals stable. pt[facility] transport pending.
[2023-01-19 08:21] VITALS: BP 106/68; PULSE 88; RESP 16; TEMP 36.1; O2SAT 98
--- NOTE | 2023-01-19 08:38 | ED.NURSE ---
[facility] for keflex was filled. Gave one dose of medication prior to leaving per MD request. Patient left via EMS. All belongings sent with patient. report given to EMS. Called [facility] to let them know she is on her way.
== END 2023-01-19 08:42 ==
PROVIDERS: Family Medicine; Emergency Provider Emergency Medicine; PCP Student in an Organized Health Care Education/Training Program
DX: R45.851 Suicidal ideations (principal); F32.9 Major depressive disorder, single episode, unspecified; N39.0 Urinary tract infection, site not specified
CPT/HCPCS: 36415; 80053; 80143; 80179; 80306; 81001; 81025; 82077; 84443; 85025; 87086; 87186; 87635; 99284; 99285; A9270

== ENCOUNTER 2023-01-19 08:24 | Outpatient (CLI) | payer BC, SELFPAY | END 2023-01-19 08:25 | disposition home or self-care (01) | LOC: AMB 01-28 12:25 | PROVIDERS: PCP Student in an Organized Health Care Education/Training Program; Visit Provider Emergency Medicine | DX: R45.851 Suicidal ideations (principal); F11.10 Opioid abuse, uncomplicated | CPT/HCPCS: A0425; A0428 ==

== ENCOUNTER 2023-03-03 15:32 | Outpatient (CLI) | payer BC, SELFPAY ==
[2023-03-03 21:23] LABS: Chlamydia DNA Amplified* NOT DETECTED (No Detected); GC DNA Amplified* NOT DETECTED (No Detected)
== END 2023-03-03 15:33 | disposition home or self-care (01) ==
LOC: NFLDUCREF 15:32
PROVIDERS: PCP Student in an Organized Health Care Education/Training Program; Visit Provider Nurse Practitioner Family
DX: N89.8 Other specified noninflammatory disorders of vagina (principal); R30.0 Dysuria
CPT/HCPCS: 87086; 87186; 87491; 87591

== ENCOUNTER 2023-07-02 15:16 | Outpatient (CLI) | payer BC, SELFPAY | END 2023-07-02 15:17 | disposition home or self-care (01) | LOC: AMB 07-10 17:59 | PROVIDERS: PCP Student in an Organized Health Care Education/Training Program; Visit Provider Family Medicine | DX: F11.10 Opioid abuse, uncomplicated (principal) | CPT/HCPCS: A0425; A0427 ==

== ENCOUNTER 2023-07-02 15:28 | Emergency (ER) | payer BC, SELFPAY ==
[2023-07-02 15:33] VITALS: BP 133/103; PULSE 112; RESP 30; TEMP 37.1; O2SAT 100; BMI 18.9
[2023-07-02 16:13] LABS: Lactate* 2.6 mmol/L (0.5-1.9)
[2023-07-02 16:15] LABS: Basophils Absolute Auto 0.01 K/uL (0.00-0.30); Basophils Percent Auto 0.1 % (0.0-3.0); Eosinophils Absolute Auto 0.06 K/uL (0.00-0.50); Eosinophils Percent Auto 0.9 % (0.0-7.0); Hematocrit 42.4 % (33.0-51.0); Hemoglobin* 14.5 gm/dL (12.0-16.0); Lymphocytes Absolute Auto 2.02 K/uL (0.90-2.90); Lymphocytes Percent Auto 29.4 % (20-44); Mean Corpuscular HGB Conc 34 gm/dL (32-36); Mean Corpuscular Hemoglobin 30 pg (26-34); Mean Corpuscular Volume 88 fL (80-100); Neutrophils Absolute Auto 4.36 K/uL (1.7-7.0); Neutrophils Percent Auto 63.6 % (42.0-72.0); Platelet Count* 380 K/uL (140-440); RDW Coefficient of Variation % 12.1 % (11.5-15.5); Red Blood Count 4.84 m/uL (4.00-5.20); White Blood Count* 6.86 K/uL (4.50-11.00)
[2023-07-02 16:25] LABS: Slide Review Reflex No
[2023-07-02] MEDS: 0.9 % SODIUM CHLORIDE 1000 ml 1,000 ML IV (16:28)
[2023-07-02 16:30] LABS: Albumin* 5.3 g/dL (3.3-5.0); Chloride* 104 mmol/L (96-114)
[2023-07-02 16:31] LABS: Potassium* 3.6 mmol/L (3.6-5.1); Sodium* 139 mmol/L (135-149)
[2023-07-02 16:33] LABS: Anion Gap 16 mEq/L (7-15); Bilirubin Direct* 0.1 mg/dL (0.0-0.5); Bilirubin Total* 0.5 mg/dL (0.1-1.5); Carbon Dioxide* 19 mmol/L (20-32); Creatinine* 0.5 mg/dL (0.5-1.5); Est. Creatinine Clearance* 102.81; Estimated Glomerular Filt Rate 119 ml/min
[2023-07-02 16:34] LABS: Alanine Aminotransferase* 35 U/L (4-35); Alkaline Phosphatase* 61 U/L (40-150); Aspartate Amino Transferase* 26 U/L (12-35); Blood Urea Nitrogen* 18 mg/dL (5-24); Calcium* 10.8 mg/dL (8.4-10.6); Glucose* 156 mg/dL (60-115); Magnesium* 2.1 mg/dL (1.5-2.6); Total Protein* 8.9 g/dL (6.0-8.3)
[2023-07-02 16:35] LABS: Acetaminophen* < 10.0 ug/mL (10.0-30.0); Ethanol* < 0.01 % (0.01-0.03); Salicylate* < 1.0 mg/dL (1.0-10)
[2023-07-02 16:47] LABS: Troponin I* < 0.01 ng/mL (0.01-0.04)
--- NOTE | 2023-07-02 16:47 | ED.GENADULT ---
HPI - General Adult General Chief complaint: Anxiety Stated complaint: weak Time Seen by Provider: 07/02/23 15:30 Source: patient Mode of arrival: EMS Limitations: no limitations History of Present Illness HPI narrative: 43-year-old female with a past medical history significant for substance use disorder, PTSD, depression, anxiety, HIV, alcoholism, presenting via EMS after her sister called secondary to erratic behavior. Patient was recently in inpatient rehab was discharged home couple of days ago. Per the patient she did use methamphetamines early in the morning today. Her sister states that she became very angry and started to have ?freak out? so she called police and ambulance brought her to the hospital. I did speak to the police and mental health worker who stated the patient has been cooperative and on Wednesday morning they are going to get her connected to another rehab facility. They are simply requesting she medically clear today she can return home for the weekend. Patient tells me that she does live independently in an apartment. Her sister, Bibi, lives in the same apartment building. Patient tells me that she does want to get better. Related Data Home Medications Medication Instructions Recorded Confirmed abacavir 600 mg-dolutegravir 50 1 tab PO DAILY 10/18/22 01/18/23 mg-lamivudine 300 mg tablet (Triumeq) clonazepam 1 mg tablet 0.5 - 1 mg PO QID PRN 10/18/22 01/18/23 escitalopram oxalate 10 mg tablet 10 mg PO DAILY 10/18/22 01/18/23 Allergies Allergy/AdvReac Type Severity Reaction Status Date / Time No Known Drug Allergies Allergy Verified 03/03/23 15:04 Review of Systems Status of ROS: Reports: 10 or more systems reviewed and unremarkable except as noted in History and below [facility] Medical History Migraine ?G43.909 - Migraine, unspecified, not intractable, without status migrainosus (ICD-10) Inflammatory arthritis ?M19.90 - Unspecified osteoarthritis, unspecified site (ICD-10) High triglycerides ?E78.1 - Pure hyperglyceridemia (ICD-10) Facet hypertrophy of lumbosacral region ?M47.817 - Spondylosis without myelopathy or radiculopathy, lumbosacral region (ICD-10) Attention deficit disorder (ADD) ?F98.8 - Other specified behavioral and emotional disorders with onset usually occurring in childhood and adolescence (ICD-10) LGSIL (low grade squamous intraepithelial dysplasia) Post traumatic stress disorder (PTSD) ?F43.10 - Post-traumatic stress disorder, unspecified (ICD-10) Tobacco dependence ?F17.200 - Nicotine dependence, unspecified, uncomplicated (ICD-10) Scoliosis ?M41.9 - Scoliosis, unspecified (ICD-10) Obstructive sleep apnea ?G47.33 - Obstructive sleep apnea (adult) (pediatric) (ICD-10) Major depressive disorder ?F32.9 - Major depressive disorder, single episode, unspecified (ICD-10) Anxiety disorder ?F41.9 - Anxiety disorder, unspecified (ICD-10) Human immunodeficiency virus (HIV) disease ?B20 - Human immunodeficiency virus [HIV] disease (ICD-10) Acne ?L70.9 - Acne, unspecified (ICD-10) Alcoholism in remission ?F10.21 - Alcohol dependence, in remission (ICD-10) Surgical History [place] teeth extracted ?K08.409 - Partial loss of teeth, unspecified cause, unspecified class (ICD-10) History of tubal ligation ?Z98.51 - Tubal ligation status (ICD-10) Hx of tonsillectomy ?Z90.89 - Acquired absence of other organs (ICD-10) Status post colonoscopy with polypectomy ?Z98.890 - Other specified postprocedural states (ICD-10) H/O section ?Z98.891 - History of uterine scar from previous surgery (ICD-10) Status post rhinoplasty ?Z98.890 - Other specified postprocedural states (ICD-10) Family History Mother Colon cancer, Onset Age: 49 Social History What is your current living situation?: I presently have a place to live Problems where you live: no known problems Problems where you live details: n/a In the past 12 months, utilities in danger of being shut off: no In past 12 months, lack of transportation kept you from medical appts, meetings, work, or getting things needed for daily living: no In the past 12 mos, have been you worried that your food would run out before you had money to buy more?: never true In the past 12 mos, the food you bought just didn't last and you didn't have money to buy more?: never true Highest level of school completed/degree received: GED or equivalent Smoking Status: Current every day smoker What tobacco products do you use: cigarettes Smoking packs per day: 1 Smoking cigarettes per day: 20.0 How often do you have a drink containing alcohol: never How often do you have six or more drinks on one occasion: Never AUDIT-C Alcohol total score: 0 Non-prescribed substance use: amphetamines/methamphetamines Caffeine: Yes (2 cans of Mt dew) How often does anyone, including family, friends and others, physically hurt you: never How often does anyone, including family, friends and others, insult or talk down to you: never How often does anyone, including family, friends and others, threaten you with harm: never How often does anyone, including family, friends and others, scream or curse at you: never service: No Exam Narrative: Exam Narrative: Very thin, disheveled patient in no acute distress. Alert and oriented x3. Answers questions appropriately. Thoughts are goal oriented and rational. No tangential or magical thinking noted. Patient speaks in full sentences without needing to catch their breath. Speech is slurred. She dozes in out of sleep. At rest, the patient's respiratory rate is normal at 18. HEENT: Normocephalic atraumatic. Pupils are equally round reactive to light. Extraocular muscles are intact. Conjunctivae are moist without any icterus noted. Moist mucous membranes. Posterior pharynx is normal. Neck is soft without any lymphadenopathy or thyromegaly. No masses are appreciated. Cardiovascular: Tachycardic, regular rhythm, S1 and S2 are present without any murmurs. Lungs: Clear to auscultation bilaterally no wheezes rhonchi or rales are appreciated. Patient takes deep breaths without any discomfort. Abdomen: Soft and nontender nondistended with normal bowel sounds. No guarding or rebound. No masses or organomegaly appreciated. Extremities: Bilateral lower extremities are without edema. Normal DP and PT pulses. Skin: Well perfused without any obvious rashes. Const: Vital Signs, click to edit/add: Vital Signs - 24 hr 07/02/23 15:33 Temperature 98.7 F Pulse Rate [Pulse Oximeter] 112 H Respiratory Rate 30 H Blood Pressure [Le ft Upper Arm] 133/103 H Pulse Oximetry 100 Oxygen Delivery Me thod Room Air Course Course ED Course: IV is established and patient received a L of normal saline. EKG, read by me, shows normal sinus rhythm with a pulse of 99. CBC is normal. Chemistries are unremarkable. Lactate is Elevated at 2.6. Calcium is 10.8 LFTs are Normal. Troponin is normal. Albumin and total protein slightly elevated. Negative salicylates, acetaminophen and alcohol. She did not leave a urine sample. Patient was cooperative while she was here. Vital Signs Vital signs: Initial Vital Signs Temperature 98.7 F 07/02/23 15:33 Temperature Source Temporal Artery Scan 07/02/23 15:33 Pulse Rate 112 H 07/02/23 15:33 Pulse Rhythm Regular 07/02/23 15:33 Respiratory Rate 30 H 07/02/23 15:33 Blood Pressure 133/103 H 07/02/23 15:33 Blood Pressure Mean 113 H 07/02/23 15:33 Blood Pressure Position Supine 07/02/23 15:33 Pulse Oximetry 100 07/02/23 15:33 Oxygen Delivery Method Room Air 07/02/23 15:33 Vital Signs Temperature 98.7 F 07/02/23 15:33 Pulse Rate 112 H 07/02/23 15:33 Respiratory Rate 30 H 07/02/23 15:33 Blood Pressure 133/103 H 07/02/23 15:33 Pulse Oximetry 100 07/02/23 15:33 Oxygen Delivery Method Room Air 07/02/23 15:33 Temperature 98.7 F 07/02/23 15:33 Pulse Rate 112 H 07/02/23 15:33 Respiratory Rate 30 H 07/02/23 15:33 Blood Pressure 133/103 H 07/02/23 15:33 Pulse Oximetry 100 07/02/23 15:33 Oxygen Delivery Method Room Air 07/02/23 15:33 Medications Administered Medications: Generic Name Dose Route Start Last Admin Trade Name Freq PRN Reason Stop Dose Admin Sodium Chloride 1,000 mls @ 1,000 mls/hr 07/02/23 16:15 07/02/23 16:28 0.9 % Sodium Chloride 1000 Ml IV 07/02/23 17:14 1,000 mls/hr .Q1H LILLIAN Administration Medical Decision Making MDM Narrative Medical decision making narrative: 43-year-old female with polysubstance use disorder at this time patient is discharged home. I did talk to her sister, Bibi, who states that she will check in on her over the weekend. Patient is already plugged in to mental health and substance use disorder treatment. Again, they will be reaching out to her on Wednesday morning for further management. Lab Data Lab results reviewed: Yes I reviewed the patient's lab results Labs: Lab Results 07/02/23 07/02/23 07/02/23 Range/Units 16:00 16:00 16:00 WBC 6.86 (4.50-11.00) K/uL RBC 4.84 (4.00-5.20) m/uL Hgb 14.5 (12.0-16.0) gm/dL Hct 42.4 (33.0-51.0) % MCV 88 (80-100) fL MCH 30 (26-34) pg MCHC 34 (32-36) gm/dL RDW Coeff of Lesley 12.1 (11.5-15.5) % Plt Count 380 (140-440) K/uL Neut % (Auto) 63.6 (42.0-72.0) % Lymph % (Auto) 29.4 (20-44) % [place] % (Auto) 6.0 (0.0-11.0) % Eos % (Auto) 0.9 (0.0-7.0) % Baso % (Auto) 0.1 (0.0-3.0) % Neut # (Auto) 4.36 (1.7-7.0) K/uL Lymph # (Auto) 2.02 (0.90-2.90) K/uL [place] # (Auto) 0.40 (0.00-0.90) K/UL Eos # (Auto) 0.06 (0.00-0.50) K/uL Baso # (Auto) 0.01 (0.00-0.30) K/uL Abs Immat Gran (auto) 0.00 (0.00-0.30) K/uL Imm/Tot Granulo (auto) 0.0 % Sodium Cancelled 139 Potassium Cancelled 3.6 Chloride Cancelled Carbon Dioxide Anion Gap BUN Creatinine Estimated Creat Clear Estimated GFR Glucose Lactate (0.5-1.9) mmol/L Calcium Magnesium (1.5-2.6) mg/dL Total Bilirubin (0.1-1.5) mg/dL Direct Bilirubin (0.0-0.5) mg/dL AST (12-35) U/L ALT (4-35) U/L Alkaline Phosphatase (40-150) U/L Total Protein (6.0-8.3) g/dL Albumin (3.3-5.0) g/dL Salicylates (1.0-10) mg/dL Acetaminophen Ethyl Alcohol (0.01-0.03) % 07/02/23 07/02/23 07/02/23 Range/Units 16:00 16:00 16:00 WBC (4.50-11.00) K/uL RBC (4.00-5.20) m/uL Hgb (12.0-16.0) gm/dL Hct (33.0-51.0) % MCV (80-100) fL MCH (26-34) pg MCHC (32-36) gm/dL RDW Coeff of Lesley (11.5-15.5) % Plt Count (140-440) K/uL Neut % (Auto) (42.0-72.0) % Lymph % (Auto) (20-44) % [place] % (Auto) (0.0-11.0) % Eos % (Auto) (0.0-7.0) % Baso % (Auto) (0.0-3.0) % Neut # (Auto) (1.7-7.0) K/uL Lymph # (Auto) (0.90-2.90) K/uL [place] # (Auto) (0.00-0.90) K/UL Eos # (Auto) (0.00-0.50) K/uL Baso # (Auto) (0.00-0.30) K/uL Abs Immat Gran (auto) (0.00-0.30) K/uL Imm/Tot Granulo (auto) % Sodium Potassium Chloride 104 Carbon Dioxide Cancelled 19 L Anion Gap Cancelled 16 H BUN Cancelled Creatinine Estimated Creat Clear Estimated GFR Glucose Lactate (0.5-1.9) mmol/L Calcium Magnesium (1.5-2.6) mg/dL Total Bilirubin (0.1-1.5) mg/dL Direct Bilirubin (0.0-0.5) mg/dL AST (12-35) U/L ALT (4-35) U/L Alkaline Phosphatase (40-150) U/L Total Protein (6.0-8.3) g/dL Albumin (3.3-5.0) g/dL Salicylates (1.0-10) mg/dL Acetaminophen Ethyl Alcohol (0.01-0.03) % 07/02/23 07/02/23 07/02/23 Range/Units 16:00 16:00 16:00 WBC (4.50-11.00) K/uL RBC (4.00-5.20) m/uL Hgb (12.0-16.0) gm/dL Hct (33.0-51.0) % MCV (80-100) fL MCH (26-34) pg MCHC (32-36) gm/dL RDW Coeff of Lesley (11.5-15.5) % Plt Count (140-440) K/uL Neut % (Auto) (42.0-72.0) % Lymph % (Auto) (20-44) % [place] % (Auto) (0.0-11.0) % Eos % (Auto) (0.0-7.0) % Baso % (Auto) (0.0-3.0) % Neut # (Auto) (1.7-7.0) K/uL Lymph # (Auto) (0.90-2.90) K/uL [place] # (Auto) (0.00-0.90) K/UL Eos # (Auto) (0.00-0.50) K/uL Baso # (Auto) (0.00-0.30) K/uL Abs Immat Gran (auto) (0.00-0.30) K/uL Imm/Tot Granulo (auto) % Sodium Potassium Chloride Carbon Dioxide Anion Gap BUN 18 Creatinine Cancelled 0.5 Estimated Creat Clear Cancelled 102.81 Estimated GFR Cancelled Glucose Lactate (0.5-1.9) mmol/L Calcium Magnesium (1.5-2.6) mg/dL Total Bilirubin (0.1-1.5) mg/dL Direct Bilirubin (0.0-0.5) mg/dL AST (12-35) U/L ALT (4-35) U/L Alkaline Phosphatase (40-150) U/L Total Protein (6.0-8.3) g/dL Albumin (3.3-5.0) g/dL Salicylates (1.0-10) mg/dL Acetaminophen Ethyl Alcohol (0.01-0.03) % 07/02/23 07/02/23 07/02/23 Range/Units 16:00 16:00 16:00 WBC (4.50-11.00) K/uL RBC (4.00-5.20) m/uL Hgb (12.0-16.0) gm/dL Hct (33.0-51.0) % MCV (80-100) fL MCH (26-34) pg MCHC (32-36) gm/dL RDW Coeff of Lesley (11.5-15.5) % Plt Count (140-440) K/uL Neut % (Auto) (42.0-72.0) % Lymph % (Auto) (20-44) % [place] % (Auto) (0.0-11.0) % Eos % (Auto) (0.0-7.0) % Baso % (Auto) (0.0-3.0) % Neut # (Auto) (1.7-7.0) K/uL Lymph # (Auto) (0.90-2.90) K/uL [place] # (Auto) (0.00-0.90) K/UL Eos # (Auto) (0.00-0.50) K/uL Baso # (Auto) (0.00-0.30) K/uL Abs Immat Gran (auto) (0.00-0.30) K/uL Imm/Tot Granulo (auto) % Sodium Potassium Chloride Carbon Dioxide Anion Gap BUN Creatinine Estimated Creat Clear Estimated GFR 119 Glucose Cancelled 156 H Lactate 2.6 H (0.5-1.9) mmol/L Calcium Cancelled 10.8 H Magnesium 2.1 (1.5-2.6) mg/dL Total Bilirubin 0.5 (0.1-1.5) mg/dL Direct Bilirubin 0.1 (0.0-0.5) mg/dL AST 26 (12-35) U/L ALT 35 (4-35) U/L Alkaline Phosphatase 61 (40-150) U/L Total Protein 8.9 H (6.0-8.3) g/dL Albumin 5.3 H (3.3-5.0) g/dL Salicylates < 1.0 L (1.0-10) mg/dL Acetaminophen Cancelled Ethyl Alcohol (0.01-0.03) % 07/02/23 Range/Units 16:00 WBC (4.50-11.00) K/uL RBC (4.00-5.20) m/uL Hgb (12.0-16.0) gm/dL Hct (33.0-51.0) % MCV (80-100) fL MCH (26-34) pg MCHC (32-36) gm/dL RDW Coeff of Lesley (11.5-15.5) % Plt Count (140-440) K/uL Neut % (Auto) (42.0-72.0) % Lymph % (Auto) (20-44) % [place] % (Auto) (0.0-11.0) % Eos % (Auto) (0.0-7.0) % Baso % (Auto) (0.0-3.0) % Neut # (Auto) (1.7-7.0) K/uL Lymph # (Auto) (0.90-2.90) K/uL [place] # (Auto) (0.00-0.90) K/UL Eos # (Auto) (0.00-0.50) K/uL Baso # (Auto) (0.00-0.30) K/uL Abs Immat Gran (auto) (0.00-0.30) K/uL Imm/Tot Granulo (auto) % Sodium Potassium Chloride Carbon Dioxide Anion Gap BUN Creatinine Estimated Creat Clear Estimated GFR Glucose Lactate (0.5-1.9) mmol/L Calcium Magnesium (1.5-2.6) mg/dL Total Bilirubin (0.1-1.5) mg/dL Direct Bilirubin (0.0-0.5) mg/dL AST (12-35) U/L ALT (4-35) U/L Alkaline Phosphatase (40-150) U/L Total Protein (6.0-8.3) g/dL Albumin (3.3-5.0) g/dL Salicylates (1.0-10) mg/dL Acetaminophen < 10.0 L Ethyl Alcohol < 0.01 L (0.01-0.03) % ECG Data Attestation: I personally reviewed and interpreted this ECG as follows: Discharge Plan Discharge Clinical Impression: Substance use disorder Patient Disposition: Home, Self-Care Condition: Stable Additional Instructions: You will be contacted Wednesday morning to discuss further management. Please return to the ER if you feel unsafe at home. Prescriptions: No Action clonazepam 1 mg tablet 0.5 - 1 mg PO QID PRN Patient Comments: 0.5 MG TID PRN, 1 MG HS PRN Triumeq 600-50-300 mg tablet 1 tab PO DAILY escitalopram oxalate 10 mg tablet 10 mg PO DAILY Follow Up/Referrals: Ana Maria Renner PA-C [Primary Care Provider] - Stand Alone Forms: [employer] [facility] [employer] Info Instructions
[2023-07-02 16:49] LABS: HCG Qualitative Serum* Negative (Negative)
--- NOTE | 2023-07-02 19:31 | ED.NURSE ---
Before discharge I called pt sister Annel per pt request to give pt a ride home. pt sister stated I might not be able to get her but I will make sure someone is there to get her soon. at time of note pt was still in waiting room and wondering about ride. Mechanical Service Specialist called pt mom per pt request and pt mom stated I was not aware pt needed a ride home but I live real close, I can be there in about 5 minutes if you will have her meet me out front. pt in agreement with plan no further questions at this time.
== END 2023-07-02 17:36 | disposition home or self-care (01) ==
PROVIDERS: Emergency Provider Family Medicine; PCP Student in an Organized Health Care Education/Training Program
DX: F19.988 Other psychoactive substance use, unspecified with other psychoactive substance-induced disorder (principal)
CPT/HCPCS: 36415; 80048; 80076; 80143; 80179; 80306; 82077; 83605; 83735; 84484; 84703; 85025; 93005; 99284; J7030

== ENCOUNTER 2024-08-14 23:05 | Emergency (ER) | payer BC, SELFPAY ==
--- OUTSIDE RECORDS SUMMARY | 2024-08-14 23:07 | XMS_ITS | Encounter Summary ---
Author Organization [facility] Address [address] [address] Care Team Providers Care Home Health Speech Therapist Name Role Phone Unavailable Primary Care Provider Unavailabl e Encounter Details Date Type Department Care Team (Late st Contact Info) Description 06/07/2016 Consent for Procedure/Treatme nt [facility] Department [facility] INFORMED CONSENT NEUROLEPTIC MEDICATIONS Social History Tobacco Use Types Packs/Day Years Used Date Smoking Tobacco: Every Day Cigarettes Smokeless Tobacco: Current Alcohol Use Standard Drinks/Week Comments Yes 0 (1 standard drink = 0.6 oz pur e alcohol) couple times/month Comments Unknown Sex and Gender Information Value Date Recorded Sex Assigned at Not on file 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
--- OUTSIDE RECORDS SUMMARY | 2024-08-14 23:07 | XMS_ITS | Encounter Summary ---
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
--- OUTSIDE RECORDS SUMMARY | 2024-08-14 23:07 | XMS_ITS | Clinical Summary ---
Author Organization [employer] [facility] Address [address] [place] [id number] Care Team Providers Care Director Special Education Name Role Phone Ana Maria Renner Primary Care Provider [phone] Allergies Active Allergy Reactions Criticality Noted Date Comments Armodafinil Alopecia 06/05/2016 Medications acetaminophen (TYLENOL EXTRA STRGTH) 500 mg tablet Take 2 Tabs by mouth every 6 hours if needed. 7 Active abacavir-doluteg ravir-lamivudine , 600-50-300 mg, (Triumeq) Take 1 Tablet by mouth once daily. 1 Active Clindamycin-Rodo oyl Peroxide 1.2 %(1 % base) -5 % topical gel Apply topically to affected area(s). 1 Active docusate (COLACE) 100 mg capsule Take 1 Capsule by mouth once daily. 1 Active ketoconazole 2% shampoo (NIZORAL) 2 % shampooIndicatio ns:Tinea versicolor Apply to affected area for 5 minutes, then wash off. Do this once daily for 3 days. 120 mL 4 Active naproxen (NAPROSYN) 500 mg tabletIndication s:Carpal tunnel syndrome on right Take 1 Tablet (500 mg) by mouth two times daily with meals. 20 Tablet 4 Active cyclobenzaprine (FLEXERIL) 5 mg tabletIndication s:Muscular pain Take 1 Tablet (5 mg) by mouth at bedtime if needed for Muscle Spasm. 10 Tablet 5 Active nicotine (NICORETTE) 4 mg gumIndications:T obacco use disorder Chew 1 Each (4 mg) every hour while awake as needed for Nicotine Craving. 100 Each 3 5 Active fluconazole (DIFLUCAN) 150 mg tabletIndication s:Tinea versicolor Take 2 tablets (300 mg) once. Repeat dosing again in one week. 4 Tablet 5 Active DULoxetine (CYMBALTA) 60 mg Delayed-release capsuleIndicatio ns:Depression, unspecified depression type Take 1 Capsule (60 mg) by mouth once daily. 90 Capsule 3 5 Active doxepin (SINEQUAN) 10 mg capsuleIndicatio ns:Insomnia, idiopathic Take 1 Capsule (10 mg) by mouth at bedtime. 90 Capsule 3 5 Active Active Problems Problem Noted Date Diagnosed Date Cluster B personality disorder 06/23/2024 Polysubstance abuse 11/02/2023 ASCUS with positive high risk HPV cervical 10/31 Overview (11/09/2023): 06/2014 LSIL 08/2014 [place]: Suggestive of JAYNE 1 04/2019 NIL/HPV Negative 07/2021 NIL/HPV Negative 07/2022 NIL/HPV Negative 11/2023 ASCUS/HPV+, HPV 16/18 negative Plan: Pap and HPV due 10/2024 Patients with Immunocompromising Conditions ASCCP Guidelines (2019) recommends: Screening should begin within 1 year of first sexual debut and continue throughout lifetime (older than 65). Annual pap testing (age 21-29 Pap only, age 30-65 Pap & HPV) X 3. If NIL or NIL/HPV Negative annually X 3, Pap (age 21-30) or Pap/HPV (age 30 and beyond) every 3 years throughout lifetime. Inflammatory polyarthropathy 10/25/2023 Mixed hyperlipidemia 10/25/2023 Lumbar facet arthropathy 08/04/2022 Human immunodeficiency virus (HIV) disease 03/18 Overview (03/18/2015): Diagnosed: March 2015 Opportunistic infections: Paramjit CD4: ART history: Resistance data: Serologies: High triglycerides 06/07/2014 ADD (attention deficit disorder) 06/05/2014 Muscular pain, neck, upper back 01/17/2014 Facet hypertrophy of lumbosacral region 01/18/20 14 Scoliosis 01/17/2014 Alcohol abuse, unspecified 02/02/2011 Resolved Problems Problem Noted Date Diagnosed Date Resolved Date Other stimulant dependence with withdrawal 06/23/2024 06/23/2024 HIV (human immunodeficiency virus infection) 5 04/04/2015 Overview (03/15/2015): 03/2015: initial testing positive with [place]: referred to ID for further testing. Encounters Date Type Department Care Team Description 06/23/2024 1:35 PM CHARTERED WEALTH MANAGER Office Visit [facility] [address] [place] [address] Ana Maria Renner PA Sleep Problem (Ongoing concerns with Sleep. Moves around, doesn't ever feel rested//Nicorette ) 06/23/2024 Telephone [facility] [address] [place] [address] Ana Maria Renner PA Medication Management (doxepin (SILENOR) 6 mg tablet) 06/23/2024 Refill [facility] [address] [place] [address] Lucille Huggins MD Refill Request (Duloxetine DR 60 mg capsules ) 06/23/2024 Travel 06/06/2024 1:20 PM CHARTERED WEALTH MANAGER Office Visit [facility] [address] [place] [address] Antonia Cano PA Lump 06/06/2024 Travel from Last 3 Months Immunizations Immunization Administration Dates Next Due Hepatitis A (Adult) 02/08/2019,07/28/2018 Hepatitis B (Adult) 01/03/2019,08/30/2018,2018 INFLUENZA, IIV3 PF (AGE >= 6 MO) 03/20/2024 Influenza A (H1N1), Inactivated 02/08/20 11,02/19/2010,04/23/2009,03/07,03/10/2006,02/20/2005 Influenza Virus, Unspecified 01/26/2017, 02/05/2016,02/19/2010,02/09,03/07/2008,03/10/2006,02/20/2005 ,03/20/2003 Influenza, IIV3 (Age 6-35 mos) 02/07/2011,2007 Influenza, IIV3 (Age >=3 years) 02/10/20 09,03/07/2008,03/10/2006,02/20 Influenza, IIV4 03/13/2021, 0,02/08/2019,05/06,01/26/2017,06/07/2016,02/05/2016 Influenza, IIV4 (=>6mos) MDV 04/09/2015,02/29/20 14 Meningococcal Vaccine (Menactra) 09/05/2020,08/2019 Pneumococcal Conj 20-valent (Prevnar 20) 07/28/2022 Pneumococcal Poly,23-Valent (Pneumovax) 02/08/2019 Tdap 07/28/2022,01/29/2012 Zoster (Shingrix-RZV, recombinant) 03/22/2024 Family History Medical History Relation Name Comments Cancer-colon Mother x2 times Cancer-breast No Family History Cancer-ovarian No Family History Relation Name Status Comments Brother Alive Father Alive Mother Alive Sister 1 Alive Sister 2 Alive Social History Tobacco Use Types Packs/Day Years Used Date Smoking Tobacco: Every Day Cigarettes 1 57 Started: 07/29/1995 Smokeless Tobacco: Never Tobacco Cessation:Ready to Q uit: Not Asked; Counseling Given: Not Answered Alcohol Use Standard Drinks/Week Comments No 0 (1 standard drink = 0.6 oz pur e alcohol) PHQ-2 Answer Date Recorded PHQ-2 TOTAL SCORE 4 03/20/2024 Social Connections Answer Date Recorded Do you often feel lonely or isolated from those around you? 0 10/25/2023 Financial Resource Strain Answer Date R ecorded Difficulty of Paying Living Expenses 3 10/25/2023 Difficulty of Paying Living Expenses Not on file 10/25/2023 Food Insecurity Answer Date Recorded Do you worry your food will run out before you are able to buy more? 1 10/25/2023 Transportation Needs Answer Date Record ed Does lack of transportation keep you from medica l appointments? 1 10/25/2023 Does lack of transportation keep you from work, meetings or getting things that you need? 1 10/25/2023 Housing Stability Answer Date Recorded What is your housing situation today? 1 10/25/2023 Utilities Answer Date Recorded Do you have trouble paying f or utilities (for example, heat, electricity, water, phone)? 1 10/25/2023 Comments No Sex and Gender Information Value Date Recorded Sex Assigned at Not on file Legal Sex Female 5:20 AM CHARTERED WEALTH MANAGER Gender Identity Not on file Sexual Orientation Not on file Obstetrics History Para Term AB IAB SAB Ectopic Multiple Livin g Live Births 3 2 2 1 1 Date Outcome GA Total Labor Labor//3rd Weight Sex Type Anes PTL Zahraa A1 A5 Name Clin SAB Term Term Last Filed Vital Signs Vital Sign Reading Time Taken Comments Blood Pressure 130/84 06/23/2024 1:48 PM CHARTERED WEALTH MANAGER Pulse 110 06/23/2024 1:48 PM CHARTERED WEALTH MANAGER Temperature 36.7 C (98.1 F) 05/19/2021 9:02 AM CHARTERED WEALTH MANAGER Respiratory Rate 16 05/15/2019 1:15 PM CHARTERED WEALTH MANAGER Oxygen Saturation 99% 06/23/2024 1:48 PM CHARTERED WEALTH MANAGER Inhaled Oxygen Concentration - - Weight 52.2 kg (115 lb) 06/23/2024 1:48 PM CHARTERED WEALTH MANAGER Height 156.6 cm (5' 1.65) 11/02/2023 12:59 PM C DT Body Mass Index 21.27 11/02/2023 12:59 PM CDT Plan of Treatment Health Maintenance Due Date Last Done Comments COVID-19 vaccine series (#1) 1984 BMI (ht and wt on same day) for age 18+ 11/01/2024 11/02/2023, 10/25/2023, 07/28/2022, Additional history exists Pap test for age 21-65 11/01/2024 , 11/02/2023, 07/28/2022, Additional history exists Mammogram for age 45-75 11/14/2024 11/15/2023 Depression screening for age 12+ 03/20/2025 03/20/2024, 11/02/2023, 07/29/2022, Additional history exists Lipids for age 45-75 04/01/2028 04/01/2023, 10/09/2022, 07/28/2022, Additional history exists Colonoscopy through age 75 05/15/2029 05/15/2019 Tetanus booster 07/28/2032 07/28/2022, 01/29/2012 Pneumococcal series for age 6-49 Completed 07/29/19 23, 02/08/2019 Tdap Completed 07/28/2022, 01/29/2012 Hepatitis C screening for ag e 18-79 Completed 04/01/2023, 10/09/2022, 03/18/2015 HIV for age 15-65 Completed 01/05/2024, , 04/01/2023, Additional history exists Influenza Vaccine Completed 03/20/2024, , 03/06/2020, Additional history exists Procedures Procedure Name Priority Date/Time Associated Diagnosis Comments ANTI HIV 1/2 Routine 01/05/2024 3:10 PM CDT Asymptomatic human immunodeficiency virus (HIV) infection status (HC) XR MAMMO BILAT SCREENING Routine 11/15/2023 4:05 PM CDT Routine check-up HPV HIGH RISK Routine 11/02/2023 1:35 PM CDT Screening for malignant neoplasm of cervix ANTI HCV Routine 04/01/2023 3:03 PM CHARTERED WEALTH MANAGER HIV infection, asymptomatic (HC) LIPID PANEL Routine 04/01/2023 3:03 PM CHARTERED WEALTH MANAGER HIV infection, asymptomatic (HC) COLONOSCOPY 05/15/2019 11:41 AM CHARTERED WEALTH MANAGER from Last 3 Months or Most Recently Relevant to Health Maintenance Results * (ABNORMAL) ANTI HIV 1/2 (01/05/2024 3:10 PM CDT) HIV-1/HIV-2 SCREEN Preliminary Positive(A) Non-Reac tive 01/07/2024 9:04 AM CDT [facility] Comment:Presumptive evidence of HIV-1 p24 Ag and/or HIV-1/HIV-2 Ab. HIV 1/2 Differentation test ordered. Blood BLOOD SPECIMEN / Unknown Venipuncture / Unknown 01/05/2024 3:10 PM CDT 01/05/2024 3:10 PM CDT Narrative [facility] - 01/07/2024 9:04 AM CDT Canceled- Ordered Incorrectly Ana Maria ADAMS SEND OUTS Edited Re sult - Final [facility] [address] [place] [address], [place] * XR MAMMO BILAT SCREENING (11/15/2023 4:05 PM CDT) Anatomical Region Laterality Modality BREASTS, Breast Left, Breast Right Bilateral Mammography Impressions 11/16/2023 1:02 PM CDT There is no radiographic evidence for malignancy. Recommend annual mammograms. MAMMOGRAM ASSESSMENT: ACR 1 Negative PATIENTS: You will also receive a letter with your examination results in an easy to read format. If you have questions about your results, please contact your referring provider. Narrative 11/16/2023 1:02 PM CDT For Patients: As a result of the Century Cures Act, medical imaging exams and procedure reports are released immediately into your electronic medical record. You may view this report before your referring provider. If you have questions, please contact your health care provider. XR MAMMO BILAT SCREENING [[id number]] CLINICAL HISTORY: This is an asymptomatic 43 y.o. patient. INDICATION FOR EXAM: Mammogram Screening. TECHNIQUE: CC & MLO views were obtained. This study was evaluated with the assistance of Computer-Aided Detection. COMPARISON FILM: Yes 05/18/19 [facility] FINDINGS: The breasts are heterogeneously dense, which may obscure small masses. There are no dominant masses, suspicious micro calcifications or areas of architectural distortion. us Ana Maria ADAMS MAMMO Final Res ult * (ABNORMAL) HPV HIGH RISK (11/02/2023 1:35 PM CDT) TYPE 16 Negative Negative 11/08/2023 1:36 PM CDT [facility] TYPE 18 Negative Negative 11/08/2023 1:36 PM CDT [facility] OTHER HIGH RISK TYPES Positive(A) Negative 11/08/2023 1:36 PM CDT [facility] Other (Cervical) Non-Blood / Unknown 11/02/2023 1:35 PM CDT 11/03/2023 12:54 PM CDT Narrative [facility] - 11/08/2023 1:36 PM CDT Specimen is positive for the DNA of any one of, or combination of, the following high risk HPV types: 31, 33, 35, 39, 45, 51, 52, 56, 58, 59, 66, 68. HPV types 16 and 18 DNA were undetectable or below the pre-set threshold. Methodology: Sarah Patrick 4800 HPV Test us Ana Maria ADAMS MICROBIOLOGY Final Res ult Performing Organization Address City/[facility] Co de Phone Number [facility] [address] [place] [phone], [place] * ANTI HCV (04/01/2023 3:03 PM CHARTERED WEALTH MANAGER) [facility] HEPATITIS C ANTIBODY Non-Reacti ve Non-React carlos 04/02/2023 7:48 AM CHARTERED WEALTH MANAGER [facility] Comment:Please note, per www .CDC.gov: If a patient is known to be at high risk of HCV infection, or is symptomatic, and the physician's suspicion of HCV infection is high, HCV RNA testing is often employed and is of diagnostic value, even after an initial negative anti-HCV test result. Blood BLOOD SPECIMEN / Unknown Venipuncture / Unknown 04/01/2023 3:03 PM CHARTERED WEALTH MANAGER 04/01/2023 3:03 PM CHARTERED WEALTH MANAGER us Ana Maria ADMAS SEND OUTS Final Res ult Performing Organization Address City/[facility]/ZIP Co de Phone Number [facility] [address] [place] [phone], [place] * (ABNORMAL) LIPID PANEL (04/01/2023 3:03 PM CHARTERED WEALTH MANAGER) CHOLESTEROL,TOTAL 240(H) 100 - 199 mg/dL 04/02/2023 7:11 AM CHARTERED WEALTH MANAGER [facility] Comment: Cholesterol, Total Reference Ranges Desirable <200 mg/dL Borderline 200-239 mg/dL High >=240 mg/dL TRIGLYCERIDES 141 <150 mg/dL 04/02/2023 7:11 AM CHARTERED WEALTH MANAGER [facility] HDL CHOLESTEROL 57 >40 mg/dL 7:11 AM CHARTERED WEALTH MANAGER [facility] NON-HDL CHOLESTEROL 183(H) <145 mg/dl 04/02/2023 7:11 AM CHARTERED WEALTH MANAGER [facility] CHOL/HDL RATIO 4.21 <4.50 04/02/2023 7:11 AM CHARTERED WEALTH MANAGER [facility] LDL CHOLESTEROL 155(H) <=130 mg/dL 04/02/2023 7:11 AM [facility] VLDL CHOLESTEROL 28 <=30 mg/dL 04/02/2023 7:11 AM CHARTERED WEALTH MANAGER [facility] PROVIDER ORDERED STATUS RANDOM 04/02/2023 7:11 AM CHARTERED WEALTH MANAGER [facility] Blood BLOOD SPECIMEN / Unknown Venipuncture / Unknown 04/01/2023 3:03 PM CHARTERED WEALTH MANAGER 04/01/2023 3:03 PM CHARTERED WEALTH MANAGER us Ana Maria ADAMS CHEMISTRY Final Res ult [facility] [address] [place] [phone], * COLONOSCOPY (05/15/2019 11:41 AM CHARTERED WEALTH MANAGER) 05/15/2019 11:4 1 AM CHARTERED WEALTH MANAGER Narrative Transcriptions Dk Flaherty MD - 05/15/2019 12:42 PM CST Patient Name: Delores Sotelo Procedure Date: 05/15/2019 Gender: Female Date of : 1980 Admit Type: Ambulatory Procedure: Colonoscopy Proceduralist: Dk Flaherty MD , Becca Bowser,Audio Recording Engineer (Audio Recording Engineer) Indications/Pre-Op Diagnosis: Screening in patient at increased risk:Family history of 1st-degree relative withcolorectal cancer before age 60 years Medications: Monitored Anesthesia Care Procedure Description: The procedure, indications, potential complications, (bleeding, perforation, infection, adverse medication reaction, missed lesionsor polyps) and alternatives available were explained to the patient, who appeared to understand and indicated this. Opportunity for questionswas provided and informed consent obtained. The colonoscopy was passed through the anus and advanced to theterminal ileum. The colonoscopy was unusually difficult due to poor endoscopic visualization. Successful completion of the procedure was aided by lavage. The patient tolerated the procedure well. The quality of the bowel preparation was evaluated using the BBPS ([place] BowelPreparation Scale) with scores of: Right Colon = 2 (minor amount of residual staining, small fragments of stool and/or opaque liquid, but mucosaseen well), Transverse Colon = 2 (minor amount of residual staining, small fragments of stool and/or opaque liquid, but mucosa seen well) andLeft Colon = 2 (minor amount of residual staining, small fragments ofstool and/or opaque liquid, but mucosa seen well). The total BBPS scoreequals 6. Complications: No immediate complications. Estimated Blood Loss & Specimen: Estimated blood loss: none. Specimen collected: Yes and sent to Laboratory Findings: The perianal and digital rectal examinations were normal. Two sessile polyps were found in the transverse colon. The polypswere 2 to 3 mm in size. These polyps were removed with a cold snare.Resection was complete, but the polyp tissue was not retrieved. The exam was otherwise without abnormality on direct and retroflexion views. Impressions/Post-Op Diagnosis: - Two 2 to 3 mm polyps in the transverse colon, removed with a cold snare. Complete resection. Polyp tissue not retrieved. - The examination was otherwise normal on direct and retroflexionviews. Recommendation: - Repeat colonoscopy in 5 years for surveillance. Moderate Sedation: MAC Dk Flaherty MD 05/15/2019 12:42:10 PM This report has been signed electronically. Note Initiated On: 05/15/2019 11:41 AM us Dk Flaherty MD PROCEDURE ORD Final Res ult from Last 3 Months or Most Recently Relevant to Health Maintenance Insurance [facility] Advance Directives * Full Code (Latest Code Status on File) Date Activated Date Inactivated Comments 05/15/2019 10:31 AM 05/15/2019 3:46 PM * Full Code Date Activated Date Inactivated Comments 07/11/2013 11:02 AM 07/11/2013 10:23 PM * Full Code Date Activated Date Inactivated Comments 06/27/2013 9:18 AM 06/27/2013 3:42 PM * Full Code Date Activated Date Inactivated Comments 02/27/2009 6:32 AM 02/27/2009 1:10 PM Care Teams Director Special Education Relationship Specialty Start Date End Date Ana Maria Renner PA [address] [place] [address] PCP - General Physician Risk Control Analyst 10/09/22
--- OUTSIDE RECORDS SUMMARY | 2024-08-14 23:07 | XMS_ITS | Clinical Summary ---
Author Organization [place] Address [facility] [place] [address] Care Team Providers Care Scalehouse Attendant Name Role Phone Unavailable Primary Care Provider Unavailabl e Allergies No known active allergies Medications * This document contains information received from the source organization and may not represent a complete record from that organization. No known medications Social History Tobacco Use Types Packs/Day Years Used Date Smoking Tobacco: Never Assessed Adolescent Education Answer Date Record ed Getting School Help Needed Not on file 07/01 Comments Unknown Sex and Gender Information Value Date Recorded Sex Assigned at Not on file Legal Sex Female 8:39 AM CDT Gender Identity Not on file Sexual Orientation Not on file Last Filed Vital Signs Vital Sign Reading Time Taken Comments Blood Pressure 119/79 07/01/2023 4:26 PM MARINE PAINTER Pulse 95 07/01/2023 4:26 PM MARINE PAINTER Temperature 37.2 C (98.9 F) 07/01/2023 4:26 PM MARINE PAINTER Respiratory Rate 20 07/01/2023 4:26 PM MARINE PAINTER Oxygen Saturation 99% 07/01/2023 4:26 PM MARINE PAINTER Inhaled Oxygen Concentration - - Weight 45.4 kg (100 lb) 07/01/2023 4:26 PM MARINE PAINTER Height 157.5 cm (5' 2) 07/01/2023 4:26 PM MARINE PAINTER Body Mass Index 18.29 07/01/2023 4:26 PM MARINE PAINTER Plan of Treatment Health Maintenance Due Date Last Done Comments ADVANCE CARE PLANNING 1980 ANNUAL REVIEW OF HM ORDERS 1980 CT COLONOGRAPHY 1980 DIABETES SCREENING 1980 FIT 1980 FLEX SIG 1980 sDNA (Cologuard) 1980 COLONOSCOPY 1989 COLORECTAL CANCER SCREENING 1989 PAP 2000 LIPID 2019 MAMMO SCREENING 05/18/2021 05/18/2019 YEARLY PREVENTIVE VISIT 07/29/2023 07/29/19 23, 07/18/2021, 01/03/2019 COVID-19 Vaccine (1 - 2023- season) 2024 INFLUENZA VACCINE (#1) 2024 1, 03/06/2020, 02/08/2019, Additional history exists PHQ-2 (once per calendar year) 2024 ZOSTER IMMUNIZATION (1 of 2) 2029 DTAP/TDAP/TD IMMUNIZATION (3 - Td or Tdap) 07/28/2032 07/28/2022, 01/29/2012 HEPATITIS B IMMUNIZATION Completed 019, 08/30/2018, 07/28/2018 MENINGITIS IMMUNIZATION Aged Out 09/05/2020, 03/06 No longer eligible based on patient's age to complete this topic Pneumococcal Vaccine: Pediatrics (0 to 5 Years) and At-Risk Patients (6 to 49 Years) Aged Out 07/28/2022, 02/08/2019, 01/26/2017 No longer eligible based on patient's age to complete this topic HEPATITIS C SCREENING Completed 04/01/2023 HIV SCREENING Completed 04/01/2023 HPV IMMUNIZATION Aged Out No longer e ligible based on patient's age to complete this topic Insurance BLUE [employer]AGE [facility]
--- OUTSIDE RECORDS SUMMARY | 2024-08-14 23:07 | XMS_ITS | Encounter Summary ---
Author Organization Count includes the [facility] Address [address], [place] [address] Care Team Providers Care Plsql Developer Name Role Phone Unavailable Primary Care Provider Unavailabl e Encounter Details Date Type Department Care Team (Late st Contact Info) Description 06/05/2016 Outside Hospital External to External, [place] [address] [facility] Social History Tobacco Use Types Packs/Day Years Used Date Smoking Tobacco: Never Assessed Comments Unknown Sex and Gender Information Value Date Recorded Sex Assigned at Not on file Legal Sex Female 9:19 AM RESIDENT CARE AID Gender Identity Not on file Sexual Orientation Not on file documented as of this encounter Plan of Treatment Not on file documented as of this encounter Visit Diagnoses Not on filedocumented in this encounter
--- OUTSIDE RECORDS SUMMARY | 2024-08-14 23:07 | XMS_ITS | Encounter Summary ---
Author Organization [place] Address [address] [facility] [place] [address] Care Team Providers Care Dental Office Assistant Name Role Phone Unavailable Primary Care Provider Unavailabl e Reason for Visit * Reason Onset Date Comments MH/CD Inpatient 04/30/2016 Encounter Details Date Type Department Care Team ([facility] st Contact Info) Description 04/30/2016 Telephone [facility] Behavioral Health Intake [address] [place] [phone] Generic, Behavioral Intake, MD MH/CD Inpatient Social History Tobacco Use Types Packs/Day Years Used Date Smoking Tobacco: Never Assessed Comments Unknown Sex and Gender Information Value Date Recorded Sex Assigned at Not on file Legal Sex Female 8:39 AM CDT Gender Identity Not on file Sexual Orientation Not on file documented as of this encounter Miscellaneous Notes * Telephone Encounter - Kate Abebe - 04/30/2016 11:04 AM CST Received call from Evelin at [facility] [phone]; no change in presentation since yesterday.Hold expires tomorrow afternoon. R: Spoke with Dr. Angel / director of instructional technology for [facility] today; would need an [facility] bed and unit cannot accommodate at this time; declines due to this and the fact that the hold expires tomorrow and no steps have been taken to file commitment papers. Recommends they keep patient within their own system at this time. Evelin notified. T [facility] documented in this encounter Plan of Treatment Not on file documented as of this encounter Visit Diagnoses Not on filedocumented in this encounter
--- OUTSIDE RECORDS SUMMARY | 2024-08-14 23:07 | XMS_ITS | Encounter Summary ---
Author Organization [facility] Address [address], [place] [address] Care Team Providers Care Baffle Installer Name Role Phone Unavailable Primary Care Provider Unavailabl e Encounter Details Date Type Department Care Team (Late st Contact Info) Description 06/05/2016 Scanned History External to External, [place] [address] EXTERNAL-CONSULTS Social History Tobacco Use Types Packs/Day Years Used Date Smoking Tobacco: Never Assessed Comments Unknown Sex and Gender Information Value Date Recorded Sex Assigned at Not on file Legal Sex Female 9:19 AM SUPPLIER DEVELOPMENT MANAGER Gender Identity Not on file Sexual Orientation Not on file documented as of this encounter Plan of Treatment Not on file documented as of this encounter Visit Diagnoses Not on filedocumented in this encounter
--- OUTSIDE RECORDS SUMMARY | 2024-08-14 23:07 | XMS_ITS | Encounter Summary ---
Author Organization [facility] Address [address] [address] Care Team Providers Care Sebd Teacher Name Role Phone Unavailable Primary Care Provider Unavailabl e Encounter Details Date Type Department Care Team (Late st Contact Info) Description 06/06/2016 Outside Hospital External to External, [place] [address] [facility] Social History Tobacco Use Types Packs/Day Years Used Date Smoking Tobacco: Never Assessed Comments Unknown Sex and Gender Information Value Date Recorded Sex Assigned at Not on file Legal Sex Female 9:19 AM JEWEL BEARING TURNER Gender Identity Not on file Sexual Orientation Not on file documented as of this encounter Plan of Treatment Not on file documented as of this encounter Visit Diagnoses Not on filedocumented in this encounter
--- OUTSIDE RECORDS SUMMARY | 2024-08-14 23:07 | XMS_ITS | Clinical Summary ---
Author Organization [facility] Address [address] [address] Care Team Providers Care Stove Fitter Name Role Phone Unavailable Primary Care Provider Unavailabl e Source Comments You are receiving this document as you are listed as the primary care provider,follow-up provider, or the patient has been referred to you for consultation.This is in compliance with the Medicare and[facility] E[facility] Incentive [facility],which states Providers who transition their patient to another setting of careor provider of care or refers their patient to another provider of care shouldprovide summary care record for each transition of care or referral. [facility] Allergies Active Allergy Reactions Criticality Noted Date Comments Armodafinil Hair Loss,Other, see comments 06/05 Medications DULoxetine (CYMBALTA) 30 MG capsuleIndicatio ns:Major Depressive Disorder Take 1 Cap by mouth daily. Indications: Major Depressive Disorder 30 Cap 0 7 Active lamoTRIgine (LAMICTAL) 25 MG tabletIndication s:Depression Take 2 Tabs by mouth daily. Indications: Depression 60 Tab 0 7 Active TRIUMEQ 600-50-300 MG tablet Take 1 Tablet by mouth daily. Active KLONOPIN 0.5 MG tablet Take 1 Tablet (0.5 mg) by mouth two times daily as needed. 4 Active clonazePAM (KLONOPIN) 1 MG tablet Take 1 Tablet (1 mg) by mouth at bedtime as needed. 4 Active cloNIDine (CATAPRES) 0.1 MG tablet Take 1 Tablet (0.1 mg) by mouth two times a day. 4 Active escitalopram oxalate (LEXAPRO) 20 MG tablet Take 1 Tablet (20 mg) by mouth daily. Active gabapentin (NEURONTIN) 300 MG capsule Take 1 Capsule (300 mg) by mouth three times a day. 4 Active nicotine (NICODERM CQ) 21 MG/24HR patch 2 Patches daily. 3 Active nicotine (NICORETTE) 4 MG gum SMARTSI-2 Each By Mouth Every 2-3 Hours PRN Active nicotine (COMMIT) 4 MG lozenge 1 lozenge every 1-2 hrs (at least 9 daily) for 6 wks then every 2-4 hrs for 3 wks then 2-8 hrs for 3 wks 108 Lozenge 2 4 Active mirtazapine (REMERON) 7.5 MG tabletIndication s:Cluster B personality disorder (HRC) Take 1 Tablet (7.5 mg) by mouth daily at bedtime. 60 Tablet 3 4 Active Active Problems Problem Noted Date Diagnosed Date Episodic mood disorder 06/07/2016 Cluster B personality disorder 06/07/2016 Suicidal ideation 06/07/2016 Amphetamine use disorder, moderate, dependence 0 06/07/2016 Immunizations Immunization Administration Dates Next Due Flu Vac (3+ yrs) 03/10/2006,02/20/2005 Flu Vac Preserv Free (3+yrs) 02/07/2011,03/07/20 08 Fluzone Qiv Multidose Vial 0 .25 (6-35 Mos) 04/09/2015 [id number] 04/23/2009 HepA Adult (19+ yrs) 02/08/2019,07/28/2018 HepB Adult (Engerix-B, 20+ y rs, 3 dose series) 01/03/2019,08/30/2018,07/28/2018 Influenza ([place] Only) (Flul aval Quad 0.5, 3+ yrs) 02/28/2014 Influenza IIV4 (Quadrivalent ) 0.5mL (39944) 03/13/2021,03/06/2020,02/08/2019,2018,01/26/2017,06/07/2016,02/05/2016 Influenza, Unspecified Formulation 02/19/2010,,03/20/2003 MCV4 (Menactra) 09/05/2020,03/06/2020 PCV13 (Prevnar) 01/26/2017 PCV20 ([id number]) 07/28/2022 PPSV23 (Pneumovax) 02/08/2019 Tdap 07/28/2022,01/29/2012 Social History Tobacco Use Types Packs/Day Years Used Date Smoking Tobacco: Every Day Cigarettes Smokeless Tobacco: Current Tobacco Cessation:Ready to Q uit: No Alcohol Use Standard Drinks/Week Comments Not Currently 0 (1 standard drink = 0.6 oz pur e alcohol) PHQ-2 Answer Date Recorded PHQ-2 Score 4 06/30/2023 Comments No Sex and Gender Information Value Date Recorded Sex Assigned at Not on file Legal Sex Female 9:19 AM 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 Gender Identity Not on file Sexual Orientation Not on file Last Filed Vital Signs Vital Sign Reading Time Taken Comments Blood Pressure 132/83 06/30/2023 3:28 PM CURER FOAM RUBBER Pulse 90 06/30/2023 3:28 PM CURER FOAM RUBBER Temperature 36.5 C (97.7 F) 06/30/2023 3:28 PM CURER FOAM RUBBER Respiratory Rate 16 06/28/2023 4:00 PM CURER FOAM RUBBER Oxygen Saturation 100% 06/28/2023 4:00 PM CURER FOAM RUBBER Inhaled Oxygen Concentration - - Weight 45.8 kg (101 lb) 06/30/2023 3:28 PM CURER FOAM RUBBER Height 157.5 cm (5' 2) 06/30/2023 3:28 PM CURER FOAM RUBBER Body Mass Index 18.47 06/30/2023 3:28 PM CURER FOAM RUBBER Plan of Treatment Health Maintenance Due Date Last Done Comments Cervical Cancer Screening Due 1979 Colon Cancer Screening Plan Due 1979 Hep C Screening (Preventive Services) 1979 Adult Preventive Visit 1997 Mammogram 05/18/2020 05/18/2019 COVID-19 Vaccine ( season) 2024 Influenza (#1) 2024 03/13/2021, 08/2019, 02/08/2019, Additional history exists Cholesterol 2024 Zoster/Shingles (1 of 2) 2029 DTaP/Tdap/Td (3 - Tdap) 07/28/2032 07/28/2022, 01/28 HepB Completed 01/03/2019, 08/03, 07/28/2018 HepA Completed 02/08/2019, 07/28/2018 MCV4 Aged Out 09/05/2020, 03/06/2020 No lo nger eligible based on patient's age to complete this topic Pneumococcal Completed 07/28/2022, 01/2019, 01/26/2017 HIV Screening (Preventive Services) Completed 04/01/2023 HPV Vaccine Aged Out No longer eligi ble based on patient's age to complete this topic Hib Aged Out No longer eligi ble based on patient's age to complete this topic IPV (Polio) Aged Out No longer eligi ble based on patient's age to complete this topic Meningococcal B Aged Out No longer el igible based on patient's age to complete this topic Insurance [facility] Advance Directives * Full Code (Latest Code Status on File) Date Activated Date Inactivated Comments 06/07/2016 12:02 PM 06/08/2016 2:07 PM
[2024-08-14 23:14] VITALS: BP 159/103; PULSE 81; RESP 18; TEMP 36.7; O2SAT 99; BMI 21.7
--- NOTE | 2024-08-14 23:24 | ED_ITS ---
HPI - Anxiety General Chief Complaint: Anxiety Stated Complaint: Anxiety Time Seen by Provider: 08/14/24 23:19 History of Present Illness HPI narrative: This 44-year-old female comes in reporting anxiety symptoms. She does have a history of depression and anxiety and has been taking Cymbalta a for most of the past 10 years. She states that she feels this medicine is not helping her. She is not taking any other medicines. She does see a psychiatrist and has an appointment forthcoming soon. She states her psychiatrist did prescribe a low dose of an antipsychotic but she was afraid to take it could she did not want to gain weight. She denies having any symptoms of suicidality or intent to harm others. Related Data Home Medications ?Medication ?Instructions ?Recorded ?Confirmed abacavir 600 mg-dolutegravir 50 1 tab PO DAILY 10/18/22 08/14/24 mg-lamivudine 300 mg tablet (Triumeq) duloxetine 60 mg capsule,delayed 60 mg PO DAILY 07/14/24 08/14/24 release nicotine (polacrilex) 4 mg gum mg PO 07/14/24 07/14/24 Allergies Allergy/AdvReac Type Severity Reaction Status Date / Time armodafinil (From Nuvigil) Allergy Verified 08/14/24 23:15 Review of Systems Status of ROS: Reports: 10 or more systems reviewed and unremarkable except as noted in History and below Narrative: Constitutional: No fevers, no weight gain or loss. Eyes: No discharge. No vision changes. HENT: No congestion, no sore throat, no ear pain. Cardiovascular: No chest pain, no palpitations. Respiratory: No shortness of breath, no wheezes, no cough. Gastrointestinal: No abdominal pain, no vomiting, no diarrhea. Genitourinary: No dysuria, no hematuria. Musculoskeletal: Normal range of motion. Skin: No rashes, no pruritis. Neurological: No dizziness, weakness, sensory change, speech change. Endo/Heme/Allergies: No bruising or bleeding. No polydipsia. Pysch: no suicidality, no insomnia. All other systems reviewed and are negative. [facility] Medical History Migraine ?G43.909 - Migraine, unspecified, not intractable, without status migrainosus (ICD-10) Inflammatory arthritis ?M19.90 - Unspecified osteoarthritis, unspecified site (ICD-10) High triglycerides ?E78.1 - Pure hyperglyceridemia (ICD-10) Facet hypertrophy of lumbosacral region ?M47.817 - Spondylosis without myelopathy or radiculopathy, lumbosacral region (ICD-10) Attention deficit disorder (ADD) ?F98.8 - Other specified behavioral and emotional disorders with onset usually occurring in childhood and adolescence (ICD-10) LGSIL (low grade squamous intraepithelial dysplasia) Post traumatic stress disorder (PTSD) ?F43.10 - Post-traumatic stress disorder, unspecified (ICD-10) Tobacco dependence ?F17.200 - Nicotine dependence, unspecified, uncomplicated (ICD-10) Scoliosis ?M41.9 - Scoliosis, unspecified (ICD-10) Obstructive sleep apnea ?G47.33 - Obstructive sleep apnea (adult) (pediatric) (ICD-10) Major depressive disorder ?F32.9 - Major depressive disorder, single episode, unspecified (ICD-10) Anxiety disorder ?F41.9 - Anxiety disorder, unspecified (ICD-10) Human immunodeficiency virus (HIV) disease ?B20 - Human immunodeficiency virus [HIV] disease (ICD-10) Acne ?L70.9 - Acne, unspecified (ICD-10) Alcoholism in remission ?F10.21 - Alcohol dependence, in remission (ICD-10) Surgical History [place] teeth extracted ?K08.409 - Partial loss of teeth, unspecified cause, unspecified class (ICD- 10) History of tubal ligation ?Z98.51 - Tubal ligation status (ICD-10) Hx of tonsillectomy ?Z90.89 - Acquired absence of other organs (ICD-10) Status post colonoscopy with polypectomy ?Z98.890 - Other specified postprocedural states (ICD-10) H/O section ?Z98.891 - History of uterine scar from previous surgery (ICD-10) Status post rhinoplasty ?Z98.890 - Other specified postprocedural states (ICD-10) Family History Mother Colon cancer, Onset Age: 49 Social History What is your current living situation?: I presently have a place to live Problems where you live: no known problems Problems where you live details: n/a In the past 12 months, utilities in danger of being shut off: no In past 12 months, lack of transportation kept you from medical appts, meetings, work, or getting things needed for daily living: no In the past 12 mos, have been you worried that your food would run out before you had money to buy more?: never true In the past 12 mos, the food you bought just didn't last and you didn't have money to buy more?: never true Highest level of school completed/degree received: GED or equivalent Smoking Status: Current every day smoker What tobacco products do you use: cigarettes Smoking packs per day: 1 Smoking cigarettes per day: 20.0 Do you use any of these nicotine containing products: None How often do you have a drink containing alcohol: never How often do you have six or more drinks on one occasion: Never AUDIT-C Alcohol total score: 0 Non-prescribed substance use: denies use Non-prescribed substance use details: denies use Caffeine: Yes (2 cans of Mt dew) How often does anyone, including family, friends and others, physically hurt you : never How often does anyone, including family, friends and others, insult or talk down to you: never How often does anyone, including family, friends and others, threaten you with harm: never How often does anyone, including family, friends and others, scream or curse at you: never service: No Exam Narrative: Exam Narrative: Constitutional: Well-developed, well-nourished, no acute distress. HEENT: Normocephalic, atraumatic. Neck: Normal range of motion. Nontender. Supple. Heart: Intact distal pulses. Lungs: No chest discomfort. No wheezes, rhonchi, or rales. Abdomen: Nontender. Back: Normal range of motion. Extremities: Normal range of motion. No injury. Skin: Intact. No rash. Warm. No erythema or pallor. Neurologic: No altered sensation. No weakness. Alert and oriented. Psychiatric: No suicidality. Pleasant and cooperative. Nursing notes and vitals signs are reviewed. Const: Vital Signs, click to edit/add: Vital Signs - 24 hr 08/14/24 23:14 Temperature 98.1 F Pulse Rate [Pulse Oximeter] 81 Respiratory Rate 18 Blood Pressure [Ri ght Upper Arm] 159/103 H Pulse Oximetry 99 Oxygen Delivery Me thod Room Air Course Vital Signs Vital signs: Initial Vital Signs Temperature 98.1 F 08/14/24 23:14 Temperature Source Temporal Artery Scan 08/14/24 23:14 Pulse Rate 81 08/14/24 23:14 Respiratory Rate 18 08/14/24 23:14 Blood Pressure 159/103 H 08/14/24 23:14 Blood Pressure Mean 121 H 08/14/24 23:14 Blood Pressure Position Sitting 08/14/24 23:14 Pulse Oximetry 99 08/14/24 23:14 Oxygen Delivery Method Room Air 08/14/24 23:14 Vital Signs Temperature 98.1 F 08/14/24 23:14 Pulse Rate 81 08/14/24 23:14 Respiratory Rate 18 08/14/24 23:14 Blood Pressure 159/103 H 08/14/24 23:14 Pulse Oximetry 99 08/14/24 23:14 Oxygen Delivery Method Room Air 08/14/24 23:14 Temperature 98.1 F 08/14/24 23:14 Pulse Rate 81 08/14/24 23:14 Respiratory Rate 18 08/14/24 23:14 Blood Pressure 159/103 H 08/14/24 23:14 Pulse Oximetry 99 08/14/24 23:14 Oxygen Delivery Method Room Air 08/14/24 23:14 MDM - Anxiety MDM Narrative Medical decision making narrative: This patient comes in stating that she feels anxious and it is making her feel angry at times. She denies any intent to harm herself or others. She is taking Cymbalta but states that she feels this medicine is no longer helping her. She does have an appointment coming up soon with a psychiatrist. She is otherwise in good health. I did provide a [facility] prescription for 10 tablets of Ativan 0.5 mg. She understands that we will not refill this medicine for out of the ER. Discharge Plan Discharge Clinical Impression: Acute anxiety Patient Disposition: Home, Self-Care Condition: Stable Additional Instructions: Take medication as needed and indicated. Follow up with psychiatrist as scheduled or sooner if needed. Return if worsening. Prescriptions: No Action duloxetine 60 mg capsule,delayed release(DR/EC) 60 mg PO DAILY nicotine (polacrilex) 4 mg gum PO Triumeq 600-50-300 mg tablet 1 tab PO DAILY Follow Up/Referrals: Ana Maria Renner PA-C [Primary Care Provider] - Stand Alone Forms: [employer] Info Instructions
--- OUTSIDE RECORDS SUMMARY | 2024-08-14 23:29 | XMS_ITS | Clinical Summary ---
Author Organization [facility] Address [address], [place] [address] Care Team Providers Care Meal Miller Name Role Phone Unavailable Primary Care Provider Unavailabl e Source Comments You are receiving this document as you are listed as the primary care provider,follow-up provider, or the patient has been referred to you for consultation.This is in compliance with the Medicare and[facility],which states Providers who transition their patient to another setting of careor provider of care or refers their patient to another provider of care shouldprovide summary care record for each transition of care or referral. [employer] Allergies Active Allergy Reactions Criticality Noted Date [...] Multidose Vial 0 .25 (6-35 Mos) 04/09/2015 [id number] 04/23/2009 HepA Adult (19+ yrs) 02/08/2019,07/28/2018 HepB Adult (Engerix-B, 20+ y rs, 3 dose series) 01/03/2019,08/30/2018,07/28/2018 Influenza ([place] Only) (Flul aval Quad 0.5, 3+ yrs) 02/28/2014 Influenza IIV4 (Quadrivalent ) 0.5mL ([id number]) 03/13/2021,03/06/2020,02/08/2019,2018,01/26/2017,06/07/2016,02/05/2016 Influenza, Unspecified Formulation 02/19/2010,,03/20/2003 MCV4 (Menactra) 09/05/2020,03/06/2020 PCV13 (Prevnar) 01/26/2017 PCV20 ([id number]) 07/28/2022 PPSV23 (Pneumovax) 02/08/2019 Tdap 07/28/2022,01/29/2012 Social [...] on file Legal Sex Female 9:19 AM CONSERVATION ASSISTANT Gender Identity Not on file Sexual Orientation Not on file Last Filed Vital Signs Vital Sign Reading Time Taken Comments Blood Pressure 132/83 06/30/2023 3:28 PM CONSERVATION ASSISTANT Pulse 90 06/30/2023 3:28 PM CONSERVATION ASSISTANT Temperature 36.5 C (97.7 F) 06/30/2023 3:28 PM CONSERVATION ASSISTANT Respiratory Rate 16 06/28/2023 4:00 PM CONSERVATION ASSISTANT Oxygen Saturation 100% 06/28/2023 4:00 PM CONSERVATION ASSISTANT Inhaled Oxygen Concentration - - Weight 45.8 kg (101 lb) 06/30/2023 3:28 PM CONSERVATION ASSISTANT Height 157.5 cm (5' 2) 06/30/2023 3:28 PM CONSERVATION ASSISTANT Body Mass Index 18.47 06/30/2023 3:28 PM CONSERVATION ASSISTANT Plan of Treatment Health Maintenance Due Date [...] patient's age to complete this topic Insurance [facility] Advance Directives * Full Code (Latest Code Status on File) Date Activated Date Inactivated Comments 06/07/2016 12:02 PM 06/08/2016 2:07 PM
--- OUTSIDE RECORDS SUMMARY | 2024-08-14 23:29 | XMS_ITS | Clinical Summary ---
Author Organization [facility] Address [facility] [place] [address] Care Team Providers Care Pug Mill Operator Name Role Phone Unavailable Primary Care Provider [...] Comments Blood Pressure 119/79 07/01/2023 4:26 PM HEALTHCARE MANAGER Pulse 95 07/01/2023 4:26 PM HEALTHCARE MANAGER Temperature 37.2 C (98.9 F) 07/01/2023 4:26 PM HEALTHCARE MANAGER Respiratory Rate 20 07/01/2023 4:26 PM HEALTHCARE MANAGER Oxygen Saturation 99% 07/01/2023 4:26 PM HEALTHCARE MANAGER Inhaled Oxygen Concentration - - Weight 45.4 kg (100 lb) 07/01/2023 4:26 PM HEALTHCARE MANAGER Height 157.5 cm (5' 2) 07/01/2023 4:26 PM HEALTHCARE MANAGER Body Mass Index 18.29 07/01/2023 4:26 PM HEALTHCARE MANAGER Plan of Treatment Health Maintenance Due Date [...] complete this topic Insurance [place] [place] [facility] [place] Address: [id number] [place] [id number]
--- OUTSIDE RECORDS SUMMARY | 2024-08-14 23:29 | XMS_ITS | Encounter Summary ---
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
--- OUTSIDE RECORDS SUMMARY | 2024-08-14 23:29 | XMS_ITS | Encounter Summary ---
Author Organization [facility] Address [address], [place] [address] Care Team Providers Care Sr Risk Management Consultant Name Role Phone Unavailable Primary Care Provider Unavailabl e Encounter Details Date Type Department Care Team (Late st Contact Info) Description 06/05/2016 Outside Hospital External to External, [place] [address] [facility] Social History Tobacco Use Types Packs/Day Years Used Date Smoking Tobacco: Never Assessed Comments Unknown Sex and Gender Information Value Date Recorded Sex Assigned at Not on file Legal Sex Female 9:19 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
--- OUTSIDE RECORDS SUMMARY | 2024-08-14 23:30 | XMS_ITS | Encounter Summary ---
Author Organization [facility] Address [address] [facility] [place] [address] Care Team Providers Care Information Assurance Name Role Phone Unavailable Primary Care Provider Unavailabl e Reason for Visit * Reason Onset Date Comments MH/CD Inpatient 04/30/2016 Encounter Details Date Type Department Care Team ([facility] st Contact Info) Description 04/30/2016 Telephone [facility] Behavioral Health Intake [address] [place] [phone] Generic, Behavioral Intake, MD MH/CD Inpatient Social [...] AM CST Received call from Evelin at [facility] [phone]; no change in presentation since yesterday.Hold expires tomorrow afternoon. R: Spoke with Dr. Angel / conservation planner for [facility] today; would need an [facility] bed and unit cannot accommodate at this time; declines due to this and the fact that the hold expires tomorrow and no steps have been taken to file commitment papers. Recommends they keep patient within their own system at this time. Evelin notified. OGRAPHIC PHOTOGRAPHER documented in this encounter Plan of Treatment Not on file documented as of this encounter Visit Diagnoses Not on filedocumented in this encounter
--- OUTSIDE RECORDS SUMMARY | 2024-08-14 23:30 | XMS_ITS | Clinical Summary ---
Author Organization [facility] Address [address] [place] [id number] Care Team Providers Care Park Services Specialist Name Role Phone Ana Maria Renner Primary Care Provider [phone] Allergies Active Allergy Reactions Criticality Noted Date [...] cervical 10/31 Overview (11/09/2023): 06/2014 LSIL 08/2014 [place]: Suggestive of JAYNE 1 04/2019 NIL/HPV Negative [...] Department Care Team Description 06/23/2024 1:35 PM WIRE WINDING MACHINE TENDER Office Visit [facility] [address] [place] [address] Ana Maria Renner PA Sleep Problem (Ongoing concerns with Sleep. Moves around, doesn't ever feel rested//Nicorette ) 06/23/[address] [facility] [address] [place] [address] Ana Maria Renner PA Medication Management (doxepin (SILENOR) 6 mg tablet) 06/23/[address] [facility] [address] [place] [address] Lucille Huggins MD Refill Request (Duloxetine DR 60 mg capsules ) 06/23/2024 Travel 06/06/2024 1:20 PM WIRE WINDING MACHINE TENDER Office Visit [facility] [address] [place] [address] Antonia Cano PA Lump 06/06/2024 Travel from [...] on file Legal Sex Female 5:20 AM WIRE WINDING MACHINE TENDER Gender Identity Not on file Sexual Orientation Not on file Obstetrics History Para Term AB IAB SAB Ectopic Multiple Livin g Live Births 3 2 2 1 1 Date Outcome GA Total Labor Labor//3rd Weight Sex Type Anes PTL Zahraa A1 A5 Name Clin SAB Term Term Last Filed Vital Signs Vital Sign Reading Time Taken Comments Blood Pressure 130/84 06/23/2024 1:48 PM WIRE WINDING MACHINE TENDER Pulse 110 06/23/2024 1:48 PM WIRE WINDING MACHINE TENDER Temperature 36.7 C (98.1 F) 05/19/2021 9:02 AM WIRE WINDING MACHINE TENDER Respiratory Rate 16 05/15/2019 1:15 PM WIRE WINDING MACHINE TENDER Oxygen Saturation 99% 06/23/2024 1:48 PM WIRE WINDING MACHINE TENDER Inhaled Oxygen Concentration - - Weight 52.2 kg (115 lb) 06/23/2024 1:48 PM WIRE WINDING MACHINE TENDER Height 156.6 cm (5' 1.65) 11/02/2023 12:59 [...] cervix ANTI HCV Routine 04/01/2023 3:03 PM WIRE WINDING MACHINE TENDER HIV infection, asymptomatic (HC) LIPID PANEL Routine 04/01/2023 3:03 PM WIRE WINDING MACHINE TENDER HIV infection, asymptomatic (HC) COLONOSCOPY 05/15/2019 11:41 AM WIRE WINDING MACHINE TENDER from Last 3 Months or Most Recently Relevant to Health Maintenance Results * (ABNORMAL) ANTI HIV 1/2 (01/05/2024 3:10 PM CDT) HIV-1/HIV-2 SCREEN Preliminary Positive(A) Non-Reac tive 01/07/2024 9:04 AM CDT [facility] Comment:Presumptive evidence of HIV-1 p24 Ag and/or HIV-1/HIV-2 Ab. HIV 1/2 Differentation test ordered. Blood BLOOD SPECIMEN / Unknown Venipuncture / Unknown 01/05/2024 3:10 PM CDT 01/05/2024 3:10 PM CDT N[facility]ative [facility] - 01/07/2024 9:04 AM CDT Canceled- Ordered Incorrectly Ana Maria ADAMS SEND OUTS Edited Re sult - Final [facility] [address] [place] [address], [place] * XR MAMMO BILAT SCREENING (11/15/2023 [...] health care provider. XR MAMMO BILAT SCREENING [[id number]] CLINICAL HISTORY: This is an asymptomatic 43 y.o. patient. INDICATION FOR EXAM: Mammogram Screening. TECHNIQUE: CC & MLO views were obtained. This study was evaluated with the assistance of Computer-Aided Detection. COMPARISON FILM: Yes 05/18/19 [facility] FINDINGS: The breasts are heterogeneously dense, which may obscure small masses. There are no dominant masses, suspicious micro calcifications or areas of architectural distortion. us Ana Maria ADAMS MAMMO Final Res ult * (ABNORMAL) HPV HIGH RISK (11/02/2023 1:35 PM CDT) TYPE 16 Negative Negative 11/08/2023 1:36 PM CDT [facility] TYPE 18 Negative Negative 11/08/2023 1:36 PM CDT [facility] OTHER HIGH RISK TYPES Positive(A) Negative 11/08/2023 1:36 PM CDT [facility] Other (Cervical) Non-Blood / Unknown 11/02/2023 1:35 PM CDT 11/03/2023 12:54 PM CDT Narrative [facility] - 11/08/2023 1:36 PM CDT Specimen is [...] MICROBIOLOGY Final Res ult Performing Organization Address City/[facility] Co de Phone Number [facility] [address] [place] [id number], [place] * ANTI HCV (04/01/2023 3:03 PM WIRE WINDING MACHINE TENDER) [facility] HEPATITIS C ANTIBODY Non-Reacti ve Non-React carlos 04/02/2023 7:48 AM WIRE WINDING MACHINE TENDER [facility] Comment:Please note, per www .CDC.gov: If a patient is known to be at high risk of HCV infection, or is symptomatic, and the physician's suspicion of HCV infection is high, HCV RNA testing is often employed and is of diagnostic value, even after an initial negative anti-HCV test result. Blood BLOOD SPECIMEN / Unknown Venipuncture / Unknown 04/01/2023 3:03 PM WIRE WINDING MACHINE TENDER 04/01/2023 3:03 PM WIRE WINDING MACHINE TENDER us Ana Maria ADAMS SEND OUTS Final Res ult Performing Organization Address City/[facility]/ZIP Co de Phone Number [facility] [address] [place] [phone], [place] * (ABNORMAL) LIPID PANEL (04/01/2023 3:03 PM WIRE WINDING MACHINE TENDER) CHOLESTEROL,TOTAL 240(H) 100 - 199 mg/dL 04/02/2023 7:11 AM WIRE WINDING MACHINE TENDER [facility] Comment: Cholesterol, Total Reference Ranges Desirable <200 mg/dL Borderline 200-239 mg/dL High >=240 mg/dL TRIGLYCERIDES 141 <150 mg/dL 04/02/2023 7:11 AM WIRE WINDING MACHINE TENDER [facility] HDL CHOLESTEROL 57 >40 mg/dL 7:11 AM WIRE WINDING MACHINE TENDER [facility] NON-HDL CHOLESTEROL 183(H) <145 mg/dl 04/02/2023 7:11 AM WIRE WINDING MACHINE TENDER [facility] CHOL/HDL RATIO 4.21 <4.50 04/02/2023 7:11 AM WIRE WINDING MACHINE TENDER [facility] LDL CHOLESTEROL 155(H) <=130 mg/dL 04/02/2023 7:11 AM [facility] VLDL CHOLESTEROL 28 <=30 mg/dL 04/02/2023 7:11 AM WIRE WINDING MACHINE TENDER [facility] PROVIDER ORDERED STATUS RANDOM 04/02/2023 7:11 AM WIRE WINDING MACHINE TENDER [facility] Blood BLOOD SPECIMEN / Unknown Venipuncture / Unknown 04/01/2023 3:03 PM WIRE WINDING MACHINE TENDER 04/01/2023 3:03 PM WIRE WINDING MACHINE TENDER us Ana Maria ADAMS CHEMISTRY Final Res ult [facility] [address] [place] [address], * COLONOSCOPY (05/15/2019 11:41 AM WIRE WINDING MACHINE TENDER) 05/15/2019 11:4 1 AM WIRE WINDING MACHINE TENDER Narrative Transcriptions Dk Flaherty MD - 05/15/2019 12:42 PM CST Patient Name: Delores Sotelo Procedure Date: 05/15/2019 Gender: Female Date of : 1980 Admit Type: Ambulatory Procedure: Colonoscopy Proceduralist: Dk Flaherty MD , Becca Bowser,Nanny Babysitter (Nanny Babysitter) Indications/Pre-Op Diagnosis: Screening in patient at increased [...] bowel preparation was evaluated using the BBPS (Buchtel BowelPreparation Scale) with scores of: Right Colon [...] Initiated On: 05/15/2019 11:41 AM us Dk Falherty MD PROCEDURE ORD Final Res ult from Last 3 Months or Most Recently Relevant to Health Maintenance Insurance [employer] Advance Directives * Full Code (Latest [...] 6:32 AM 02/27/2009 1:10 PM Care Teams Park Services Specialist Relationship Specialty Start Date End Date Ana Maria Renner PA [address] [place] [address] PCP - General Physician Miner Helper 10/09/22
--- OUTSIDE RECORDS SUMMARY | 2024-08-14 23:30 | XMS_ITS | Encounter Summary ---
Author Organization [facility] Address [address] [address] Care Team Providers Care Educational Programming Director Name Role Phone Unavailable Primary Care Provider Unavailabl e Encounter Details Date Type Department Care Team (Late st Contact Info) Description 06/07/2016 Consent for Procedure/Treatme nt [facility] Department RH INFORMED CONSENT NEUROLEPTIC MEDICATIONS Social History Tobacco Use Types Packs/Day Years Used Date Smoking Tobacco: Every Day Cigarettes Smokeless Tobacco: Current Alcohol Use Standard Drinks/Week Comments Yes 0 (1 standard drink = 0.6 oz pur e alcohol) couple times/month Comments Unknown Sex and Gender Information Value Date Recorded Sex Assigned at Not on file Legal Sex Female 9:19 AM RESTAURANT SUPERVISOR Gender Identity Not on file Sexual Orientation Not on file documented as of this encounter Plan of Treatment Not on file documented as of this encounter Visit Diagnoses Not on filedocumented in this encounter
--- OUTSIDE RECORDS SUMMARY | 2024-08-14 23:30 | XMS_ITS | Encounter Summary ---
Author Organization [facility] Address [address] [address] Care Team Providers Care Research Technologist Name Role Phone Unavailable Primary Care Provider Unavailabl e Encounter Details Date Type Department Care Team (Late st Contact Info) Description 06/06/2016 Outside Hospital External to [facility] Social History Tobacco Use Types Packs/Day Years Used Date Smoking Tobacco: Never Assessed Comments Unknown Sex and Gender Information Value Date Recorded Sex Assigned at Not on file Legal Sex Female 9:19 AM MEDICAL TECHNICAL WRITER Gender Identity Not on file Sexual Orientation Not on file documented as of this encounter Plan of Treatment Not on file documented as of this encounter Visit Diagnoses Not on filedocumented in this encounter
--- OUTSIDE RECORDS SUMMARY | 2024-08-14 23:30 | XMS_ITS | Encounter Summary ---
Author Organization [facility] Address [address], [place] [address] Care Team Providers Care Configuration Manager Name Role Phone Unavailable Primary Care Provider Unavailabl e Encounter Details Date Type Department Care Team (Late st Contact Info) Description 06/06/2016 Outside Hospital External to External, [place] [address] [facility] Social History Tobacco Use Types Packs/Day Years Used Date Smoking Tobacco: Never Assessed Comments Unknown Sex and Gender Information Value Date Recorded Sex Assigned at Not on file Legal Sex Female 9:19 AM BOARD CERTIFIED FAMILY PHYSICIAN Gender Identity Not on file Sexual Orientation Not on file documented as of this encounter Plan of Treatment Not on file documented as of this encounter Visit Diagnoses Not on filedocumented in this encounter
== END 2024-08-14 23:35 | disposition home or self-care (01) ==
PROVIDERS: Emergency Provider Emergency Medicine Emergency Medical Services; PCP Student in an Organized Health Care Education/Training Program
DX: F41.9 Anxiety disorder, unspecified (principal)
CPT/HCPCS: 99283; 99284

== ENCOUNTER 2024-09-09 08:32 | Emergency (ER) | payer BC, SELFPAY ==
--- OUTSIDE RECORDS SUMMARY | 2024-09-09 08:34 | XMS_ITS | Encounter Summary ---
Author Organization [facility] Address [address] [place] [address] Care Team Providers Care Bacteriologist Fishery Name Role Phone Unavailable Primary Care Provider Unavailabl e Reason for Visit * Reason Onset Date Comments MH/CD Inpatient 04/30/2016 Encounter Details Date Type Department Care Team ([facility] st Contact Info) Description 04/30/2016 Telephone [facility] Behavioral Health Intake [address] [place] [phone] Generic, Behavioral Intake, MD MH/CD Inpatient Social [...] AM CST Received call from Evelin at [facility] [phone]; no change in presentation since yesterday.Hold expires tomorrow afternoon. R: Spoke with Dr. Angel / sales receptionist for [facility] today; would need an ITC bed and unit cannot accommodate at this time; declines due to this and the fact that the hold expires tomorrow and no steps have been taken to file commitment papers. Recommends they keep patient within their own system at this time. Evelin notified. STERED MEDICAL ASSISTANT documented in this encounter Plan of Treatment Not on file documented as of this encounter Visit Diagnoses Not on filedocumented in this encounter
--- OUTSIDE RECORDS SUMMARY | 2024-09-09 08:34 | XMS_ITS | Encounter Summary ---
Author Organization [facility] Address [address], [place] [address] Care Team Providers Care Marshmallow Maker Name Role Phone Unavailable Primary Care Provider Unavailabl e Encounter Details Date Type Department Care Team (Late st Contact Info) Description 06/06/2016 Outside Hospital External to [facility]/TRSFR Social History Tobacco Use Types Packs/Day Years Used Date Smoking Tobacco: Never Assessed Comments Unknown Sex and Gender Information Value Date Recorded Sex Assigned at Not on file Legal Sex Female 9:19 AM ILLUMINATING ENGINEER Gender Identity Not on file Sexual Orientation Not on file documented as of this encounter Plan of Treatment Not on file documented as of this encounter Visit Diagnoses Not on filedocumented in this encounter
--- OUTSIDE RECORDS SUMMARY | 2024-09-09 08:34 | XMS_ITS | Clinical Summary ---
Author Organization [facility] Address [facility] [facility] [place] [address] Care Team Providers Care Breast Splitter Name Role Phone Unavailable Primary Care Provider [...] Comments Blood Pressure 119/79 07/01/2023 4:26 PM GEOSCIENCES FACULTY MEMBER Pulse 95 07/01/2023 4:26 PM GEOSCIENCES FACULTY MEMBER Temperature 37.2 C (98.9 F) 07/01/2023 4:26 PM GEOSCIENCES FACULTY MEMBER Respiratory Rate 20 07/01/2023 4:26 PM GEOSCIENCES FACULTY MEMBER Oxygen Saturation 99% 07/01/2023 4:26 PM GEOSCIENCES FACULTY MEMBER Inhaled Oxygen Concentration - - Weight 45.4 kg (100 lb) 07/01/2023 4:26 PM GEOSCIENCES FACULTY MEMBER Height 157.5 cm (5' 2) 07/01/2023 4:26 PM GEOSCIENCES FACULTY MEMBER Body Mass Index 18.29 07/01/2023 4:26 PM GEOSCIENCES FACULTY MEMBER Plan of Treatment Health Maintenance Due Date Last Done Comments ADVANCE CARE PLANNING 1980 ANNUAL REVIEW OF HM ORDERS 1979 CT COLONOGRAPHY 1980 DIABETES SCREENING 1980 FIT 1980 FLEX SIG 1980 sDNA (Cologuard) 1980 COLONOSCOPY 1989 COLORECTAL CANCER SCREENING 1989 PAP 2000 LIPID 2019 MAMMO SCREENING 05/18/2021 05/18/2019 YEARLY PREVENTIVE VISIT 07/29/2023 07/29/19, 07/18/2021, 01/03/2019 COVID-19 Vaccine (1 - 2023- season) 2024 PHQ-2 (once per calendar year) 2024 INFLUENZA VACCINE (Season Ended) 2025 03/13/2021, 03/06/2020, 02/08/2019, Additional history exists ZOSTER IMMUNIZATION (1 of 2) 2029 DTAP/TDAP/TD [...] complete this topic Insurance [employer] [employer] [employer] [place] [facility]
--- OUTSIDE RECORDS SUMMARY | 2024-09-09 08:34 | XMS_ITS | Clinical Summary ---
Author Organization [facility] Address [address], [place] [address] Care Team Providers Care Social Science Teacher Name Role Phone Unavailable Primary Care Provider Unavailabl e Source Comments You are receiving this document as you are listed as the primary care provider,follow-up provider, or the patient has been referred to you for consultation.This is in compliance with the Medicare and[facility] Hospitalca[facility] EHR Incentive Program,which states Providers who transition their patient to another setting of careor provider of care or refers their patient to another provider of care shouldprovide summary care record for each transition of care or referral. [employer] Allergies Active Allergy Reactions Criticality Noted Date [...] Multidose Vial 0 .25 (6-35 Mos) 04/09/2015 [id number] 04/23/2009 HepA Adult (19+ yrs) 02/08/2019,07/28/2018 HepB Adult (Engerix-B, 20+ y rs, 3 dose series) 01/03/2019,08/30/2018,07/28/2018 Influenza ([place] Only) (Flul aval Quad 0.5, 3+ yrs) 02/28/2014 Influenza IIV4 (Quadrivalent ) 0.5mL (65231) 03/13/2021,03/06/2020,02/08/2019,2018,01/26/2017,06/07/2016,02/05/2016 Influenza, Unspecified Formulation 02/19/2010,,03/20/2003 MCV4 (Menactra) 09/05/2020,03/06/2020 PCV13 (Prevnar) 01/26/2017 PCV20 (Hunjcis09) 07/28/2022 PPSV23 (Pneumovax) 02/08/2019 Tdap 07/28/2022,01/29/2012 Social [...] on file Legal Sex Female 9:19 AM PUBLIC TRANSIT TROLLEY DRIVER Gender Identity Not on file Sexual Orientation Not on file Last Filed Vital Signs Vital Sign Reading Time Taken Comments Blood Pressure 132/83 06/30/2023 3:28 PM PUBLIC TRANSIT TROLLEY DRIVER Pulse 90 06/30/2023 3:28 PM PUBLIC TRANSIT TROLLEY DRIVER Temperature 36.5 C (97.7 F) 06/30/2023 3:28 PM PUBLIC TRANSIT TROLLEY DRIVER Respiratory Rate 16 06/28/2023 4:00 PM PUBLIC TRANSIT TROLLEY DRIVER Oxygen Saturation 100% 06/28/2023 4:00 PM PUBLIC TRANSIT TROLLEY DRIVER Inhaled Oxygen Concentration - - Weight 45.8 kg (101 lb) 06/30/2023 3:28 PM PUBLIC TRANSIT TROLLEY DRIVER Height 157.5 cm (5' 2) 06/30/2023 3:28 PM PUBLIC TRANSIT TROLLEY DRIVER Body Mass Index 18.47 06/30/2023 3:28 PM PUBLIC TRANSIT TROLLEY DRIVER Plan of Treatment Health Maintenance Due Date Last Done Comments Cervical Cancer Screening Due 1980 Colon Cancer Screening Plan Due 1980 Hep C Screening (Preventive Services) 1980 Adult Preventive Visit 1997 Mammogram 05/18/2020 05/18/2019 COVID-19 Vaccine ( season) 2024 Cholesterol 2024 Influenza Vaccine (Season Ended) 2025 03/13/2021, 03/06/2020, 02/08/2019, Additional history exists Zoster/Shingles Vaccine (1 of 2) 2029 DTaP/Tdap/Td Vaccine (3 - Tdap) 07/28/2032 07/28/2022, 01/29/2012 HepB Vaccine Completed 01/03/2019, 08/03, 07/28/2018 HepA Vaccine Completed 02/08/2019, 07/28/2018 MCV4 Vaccine Aged Out 09/05/2020, 03/06/2020 No lo nger eligible based on patient's age to complete this topic Pneumococcal Vaccine Completed 07/28/2022, 02/08/2019, 01/26/2017 HIV Screening (Preventive Services) Completed 04/01/2023 HPV Vaccine Aged Out No longer eligi ble based on patient's age to complete this topic Hib Vaccine Aged Out No longer eligi ble based on patient's age to complete this topic IPV (Polio) Vaccine Aged Out No longe r eligible based on patient's age to complete this topic Meningococcal B Vaccine Aged Out No l onger eligible based on patient's age to complete this topic Insurance [facility] Advance Directives * Full Code (Latest Code Status on File) Date Activated Date Inactivated Comments 06/07/2016 12:02 PM 06/08/2016 2:07 PM
--- OUTSIDE RECORDS SUMMARY | 2024-09-09 08:34 | XMS_ITS | Clinical Summary ---
Author Organization [employer] [facility] Address [address] [place] [address] Care Team Providers Care Industry Consultant Name Role Phone Ana Maria Renner Primary Care Provider [phone] Aye Roca Unavailable Allergies Active Allergy Reactions Criticality Noted Date Comments Armodafinil Alopecia 06/05/2016 Medications acetaminophen (TYLENOL EXTRA STRGTH) 500 mg tablet Take 2 Tabs by mouth every 6 hours if needed. 7 Active abacavir-dolute gravir-lamivudi ne, 600-50-300 mg, (Triumeq) Take 1 Tablet by mouth once daily. 1 Active Clindamycin-Kavon zoyl Peroxide 1.2 %(1 % base) -5 % topical gel Apply topically to affected area(s). 1 Active docusate (COLACE) 100 mg capsule Take 1 Capsule by mouth once daily. 1 Active ketoconazole 2% shampoo (NIZORAL) 2 % shampooIndicati ons:Tinea versicolor Apply to affected area for 5 minutes, then wash off. Do this once daily for 3 days. 120 mL 4 Active naproxen (NAPROSYN) 500 mg tabletIndicatio ns:Carpal tunnel syndrome on right Take 1 Tablet (500 mg) by mouth two times daily with meals. 20 Tablet 4 Active cyclobenzaprine (FLEXERIL) 5 mg tabletIndicatio ns:Muscular pain Take 1 Tablet (5 mg) by mouth at bedtime if needed for Muscle Spasm. 10 Tablet 5 Active fluconazole (DIFLUCAN) 150 mg tabletIndicatio ns:Tinea versicolor Take 2 tablets (300 mg) once. Repeat dosing again in one week. 4 Tablet 5 Active DULoxetine (CYMBALTA) 60 mg Delayed-release capsuleIndicati ons:Depression, unspecified depression type Take 1 Capsule (60 mg) by mouth once daily. 90 Capsule 3 5 Active doxepin (SINEQUAN) 10 mg capsuleIndicati ons:Insomnia, idiopathic Take 1 Capsule (10 mg) by mouth at bedtime. 90 Capsule 3 5 Active nicotine 4 mg gumIndications: Tobacco use disorder Chew 1 Each (4 mg) every hour while awake as needed for Nicotine Craving. 100 Each 1 5 Active nicotine (NICORETTE) 4 mg gumIndications: Tobacco use disorder Chew 1 Each (4 mg) every hour while awake as needed for Nicotine Craving. 100 Each 3 5 08/23/19 25 Discontinu ed(Reorder (E-cancel not sent)) nicotine 4 mg gumIndications: Tobacco use disorder Chew 1 Each (4 mg) every hour while awake as needed for Nicotine Craving. 100 Each 5 08/26/19 25 Discontinu ed(Reorder (E-cancel not sent)) Active Problems Problem Noted Date Diagnosed Date Cluster B personality disorder 06/23/2024 Polysubstance abuse 11/02/2023 ASCUS with positive high risk HPV cervical 10/31 Overview (11/09/2023): 06/2014 [place]IL 08/2014 [place]: Suggestive of JAYNE 1 04/2019 NIL/HPV Negative [...] Encounters Date Type Department Care Team Description 08/22/2024 Refill [address] [place] [address] Ana Maria Renner PA Refill Request (NICOTINE 4MG CHEWING GUM, NAPROXEN 500MG TABLET) 08/15/2024 Patient Outreach [facility] - [address] [address] Aye Roca Care Coordination 06/23/2024 1:35 PM WIRE COILER Office Visit [address] [place] [address] Ana Maria Renner PA Sleep Problem (Ongoing concerns with Sleep. Moves around, doesn't ever feel rested//Nicorette ) 06/23/2024 Telephone [address] [place] [address] Ana Maria Renner PA Medication Management (doxepin (SILENOR) 6 mg tablet) 06/23/2024 [facility]ill [facility] [address] [facility] [address] Lucille Huggins MD Refill Request (Duloxetine DR 60 mg capsules ) 06/23/2024 Travel from Last 3 Months Immunizations Immunization Administration Dates Next Due Hepatitis A (Adult) 02/08/2019,07/28/2018 Hepatitis B (Adult) 01/03/2019,08/30/2018,2018 INFLUENZA, IIV3 PF (AGE >= 6 MO) 03/20/2024 Influenza A (H1N1), Inactivated 02/08/20 11,02/19/2010,04/23/2009,03/07,03/10/2006,02/20/2005 Influenza Virus, Unspecified 01/26/2017, 02/05/2016,02/19/2010,02/09,03/07/2008,03/10/2006,02/20/2005 ,03/20/2003 Influenza, IIV3 (Age 6-35 mos) 02/07/2011,2007 Influenza, IIV3 (Age >=3 years) 02/10/20 09,03/07/2008,03/10/2006,02/20 Influenza, IIV4 03/13/2021,,02/08/2019,05/06,01/26/2017,06/07/2016,02/05/2016 Influenza, IIV4 (=>6mos) MDV 04/09/2015,02/29/20 14 Meningococcal Vaccine (Menactra) 09/05/2020,11/0 08/2019 Pneumococcal Conj 20-valent (Prevnar 20) 07/28/2022 Pneumococcal [...] Date Smoking Tobacco: Every Day Cigarettes 1 57.1 Started: 07/29/1995 Smokeless Tobacco: Never Tobacco Cessation:Ready [...] file Legal Sex Female 5:20 AM WIRE COILER Gender Identity Not on file Sexual Orientation Not on file Obstetrics History Para Term AB IAB SAB Ectopic Multiple Livin g Live Births 3 2 2 1 1 Date Outcome GA Total Labor Labor/2nd/3rd Weight Sex Type Anes PTL Zahraa A1 A5 Name Clin SAB Term Term Last Filed Vital Signs Vital Sign Reading Time Taken Comments Blood Pressure 130/84 06/23/2024 1:48 PM WIRE COILER Pulse 110 06/23/2024 1:48 PM WIRE COILER Temperature 36.7 C (98.1 F) 05/19/2021 9:02 AM WIRE COILER Respiratory Rate 16 05/15/2019 1:15 PM WIRE COILER Oxygen Saturation 99% 06/23/2024 1:48 PM WIRE COILER Inhaled Oxygen Concentration - - Weight 52.2 kg (115 lb) 06/23/2024 1:48 PM WIRE COILER Height 156.6 cm (5' 1.65) 11/02/2023 12:59 [...] ANTI HCV Routine 04/01/2023 3:03 PM WIRE COILER HIV infection, asymptomatic (HC) LIPID PANEL Routine 04/01/2023 3:03 PM WIRE COILER HIV infection, asymptomatic (HC) COLONOSCOPY 05/15/2019 11:41 AM WIRE COILER from Last 3 Months or Most Recently Relevant to Health Maintenance Results * (ABNORMAL) ANTI HIV 1/2 (01/05/2024 3:10 PM CDT) HIV-1/HIV-2 SCREEN Preliminary Positive(A) Non-Reac tive 01/07/2024 9:04 AM CDT [facility] Comment:Presumptive evidence of HIV-1 p24 Ag and/or HIV-1/HIV-2 Ab. HIV 1/2 Differentation test ordered. Blood BLOOD SPECIMEN / Unknown Venipuncture / Unknown 01/05/2024 3:10 PM CDT 01/05/2024 3:10 PM CDT Narrative [facility] - 01/07/2024 9:04 AM CDT Canceled- Ordered Incorrectly us Ana Maria ADAMS SEND OUTS Edited Re sult - Final [facility] [address] [place] [address], * XR MAMMO BILAT SCREENING (11/15/2023 4:05 [...] health care provider. XR MAMMO BILAT SCREENING [[id number]] CLINICAL HISTORY: This is an asymptomatic 43 y.o. patient. INDICATION FOR EXAM: Mammogram Screening. TECHNIQUE: CC & MLO views were obtained. This study was evaluated with the assistance of Computer-Aided Detection. COMPARISON FILM: Yes 05/18/19 [facility] FINDINGS: The breasts are heterogeneously dense, which may obscure small masses. There are no dominant masses, suspicious micro calcifications or areas of architectural distortion. Ana Maria ADAMS MAMMO Final Res ult * (ABNORMAL) HPV HIGH RISK (11/02/2023 1:35 PM CDT) TYPE 16 Negative Negative 11/08/2023 1:36 PM CDT [facility] TYPE 18 Negative Negative 11/08/2023 1:36 PM CDT [facility] OTHER HIGH RISK TYPES Positive(A) Negative 11/08/2023 1:36 PM CDT [facility] Other (Cervical) Non-Blood / Unknown 11/02/2023 1:35 PM CDT 11/03/2023 12:54 PM CDT Narrative [facility] - 11/08/2023 1:36 PM CDT Specimen is positive for the DNA of any one of, or combination of, the following high risk HPV types: 31, 33, 35, 39, 45, 51, 52, 56, 58, 59, 66, 68. HPV types 16 and 18 DNA were undetectable or below the pre-set threshold. Methodology: Sarah Patrick 4800 HPV Test Ana Maria ADAMS MICROBIOLOGY Final Res ult [facility] [address] [place] [address], * ANTI HCV (04/01/2023 3:03 PM WIRE COILER) HEPATITIS C ANTIBODY Non-Reacti ve Non-React carlos 04/02/2023 7:48 AM WIRE COILER [facility] Comment:Please note, per www .CDC.gov: If a patient is known to be at high risk of HCV infection, or is symptomatic, and the physician's suspicion of HCV infection is high, HCV RNA testing is often employed and is of diagnostic value, even after an initial negative anti-HCV test result. Blood BLOOD SPECIMEN / Unknown Venipuncture / Unknown 04/01/2023 3:03 PM WIRE COILER 04/01/2023 3:03 PM WIRE COILER us Ana Maria ADAMS SEND OUTS Final Res ult [facility] [address] [place] [address], [place] * (ABNORMAL) LIPID PANEL (04/01/2023 3:03 PM WIRE COILER) CHOLESTEROL,TOTAL 240(H) 100 - 199 mg/dL 04/02/2023 7:11 AM WIRE COILER [facility] Comment: Cholesterol, Total Reference Ranges Desirable <200 mg/dL Borderline 200-239 mg/dL High >=240 mg/dL TRIGLYCERIDES 141 <150 mg/dL 04/02/2023 7:11 AM WIRE COILER [facility] HDL CHOLESTEROL 57 >40 mg/dL 7:11 AM WIRE COILER [facility] NON-HDL CHOLESTEROL 183(H) <145 mg/dl 04/02/2023 7:11 AM WIRE COILER [facility] CHOL/HDL RATIO 4.21 <4.50 04/02/2023 7:11 AM WIRE COILER [facility] LDL CHOLESTEROL 155(H) <=130 mg/dL 04/02/2023 7:11 AM WIRE COILER [facility] VLDL CHOLESTEROL 28 <=30 mg/dL 04/02/2023 7:11 AM WIRE COILER [facility] PROVIDER ORDERED STATUS RANDOM 04/02/2023 7:11 AM WIRE COILER [facility] Blood BLOOD SPECIMEN / Unknown Venipuncture / Unknown 04/01/2023 3:03 PM WIRE COILER 04/01/2023 3:03 PM WIRE COILER us Ana Maria ADAMS CHEMISTRY Final Res ult [facility] [address] [place] [address], [place] * COLONOSCOPY (05/15/2019 11:41 AM WIRE COILER) 05/15/2019 11:4 1 AM WIRE COILER Narrative Transcriptions Dk Flaherty MD - 05/15/2019 12:42 PM CST Patient Name: Delores Sotelo Procedure Date: 05/15/2019 Gender: Female Date of : 1980 Admit Type: Ambulatory Procedure: Colonoscopy Proceduralist: Dk Flaherty MD , Becca Bowser,Animal Care Assistant (Animal Care Assistant) Indications/Pre-Op Diagnosis: Screening in patient at increased [...] bowel preparation was evaluated using the BBPS ([place] BowelPreparation Scale) with scores of: Right Colon [...] Relevant to Health Maintenance Insurance [facility] Advance Directives * Full Code (Latest Code [...] 6:32 AM 02/27/2009 1:10 PM Care Teams Industry Consultant Relationship Specialty Start Date End Date Ana Maria [place]ner [place] [address] PCP - General Physician Ict Analyst 10/09/22 Aye Roca [address] [place] [address] Care Guide 08/15/24 Cherrie Solis Student Finance Specialist 08/22/24
--- OUTSIDE RECORDS SUMMARY | 2024-09-09 08:34 | XMS_ITS | Encounter Summary ---
Author Organization [facility] Address [address], [place] [address] Care Team Providers Care Antique Clock Repairer Name Role Phone Unavailable Primary Care Provider Unavailabl e Encounter Details Date Type Department Care Team (Late st Contact Info) Description 06/05/2016 Scanned History External to External, [place] [address] EXTERNAL-CONSULTS Social History Tobacco Use Types Packs/Day Years Used Date Smoking Tobacco: Never Assessed Comments Unknown Sex and Gender Information Value Date Recorded Sex Assigned at Not on file Legal Sex Female 9:19 AM INSIDE SALES CONSULTANT Gender Identity Not on file Sexual Orientation Not on file documented as of this encounter Plan of Treatment Not on file documented as of this encounter Visit Diagnoses Not on filedocumented in this encounter
--- OUTSIDE RECORDS SUMMARY | 2024-09-09 08:34 | XMS_ITS | Encounter Summary ---
Author Organization [facility] Address [address], [place] [address] Care Team Providers Care Studio Operations Engineer In Charge Name Role Phone Unavailable Primary Care Provider Unavailabl e Encounter Details Date Type Department Care Team (Late st Contact Info) Description 06/07/2016 Consent for Procedure/Treatme nt 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
--- OUTSIDE RECORDS SUMMARY | 2024-09-09 08:34 | XMS_ITS | Encounter Summary ---
Author Organization [facility] Address [address], [place] [address] Care Team Providers Care National Account Representative Name Role Phone Unavailable Primary Care Provider Unavailabl e Encounter Details Date Type Department Care Team (Late st Contact Info) Description 06/05/2016 Outside Hospital External to External, [place] [address] [facility] Social History Tobacco Use Types Packs/Day Years Used Date Smoking Tobacco: Never Assessed Comments Unknown Sex and Gender Information Value Date Recorded Sex Assigned at Not on file Legal Sex Female 9:19 AM PERSONNEL ASSISTANT Gender Identity Not on file Sexual Orientation Not on file documented as of this encounter Plan of Treatment Not on file documented as of this encounter Visit Diagnoses Not on filedocumented in this encounter
--- OUTSIDE RECORDS SUMMARY | 2024-09-09 08:34 | XMS_ITS | Encounter Summary ---
Author Organization [facility] Address [address], [place] [address] Care Team Providers Care Philosophy Instructor Name Role Phone Unavailable Primary Care Provider Unavailabl e Encounter Details Date Type Department Care Team (Late st Contact Info) Description 06/06/2016 Outside Hospital External to External, [place] [address] [facility] NOTES Social History Tobacco Use Types Packs/Day Years Used Date Smoking Tobacco: Never Assessed Comments Unknown Sex and Gender Information Value Date Recorded Sex Assigned at Not on file Legal Sex Female 9:19 AM MAGICIAN/ILLUSIONIST Gender Identity Not on file Sexual Orientation Not on file documented as of this encounter Plan of Treatment Not on file documented as of this encounter Visit Diagnoses Not on filedocumented in this encounter
[2024-09-09 08:41] VITALS: BP 134/90; PULSE 86; RESP 18; TEMP 36.3; O2SAT 98; BMI 22.7
--- NOTE | 2024-09-09 08:59 | ED_ITS ---
HPI - Ear Problem General Chief complaint: Ear/Nose/Throat Problem Stated complaint: fluid coming out ears Time Seen by Provider: 09/09/24 08:46 History of Present Illness HPI Narrative: Patient is a 44 year old woman who presents with bilateral ear pain. She has a history of tobacco use has been having increased cough. She has had no fevers no chills no night sweats no shortness of breath. She does have significant pain in both ears worse on the right. No stiff neck no sinus pressure no nasal congestion noted. Related Data Home Medications ?Medication ?Instructions ?Recorded ?Confirmed abacavir 600 mg-dolutegravir 50 1 tab PO DAILY 10/18/22 08/14/24 mg-lamivudine 300 mg tablet (Triumeq) duloxetine 60 mg capsule,delayed 60 mg PO DAILY 07/14/24 08/14/24 release nicotine (polacrilex) 4 mg gum mg PO 07/14/24 07/14/24 cyclobenzaprine 5 mg tablet 5 mg PO QPM PRN 09/09/24 09/09/24 doxepin 10 mg capsule 10 mg PO QPM 09/09/24 09/09/24 naproxen 500 mg tablet 500 mg PO BID 09/09/24 09/09/24 zolpidem 10 mg tablet 10 mg PO QPM 09/09/24 09/09/24 Allergies Allergy/AdvReac Type Severity Reaction Status Date / Time armodafinil (From Nuvigil) Allergy Verified 09/09/24 08:44 Review of Systems Status of ROS: Reports: 10 or more systems reviewed and unremarkable except as noted in History and below [facility] Medical History Migraine ?G43.909 - Migraine, unspecified, not intractable, without status migrainosus (ICD-10) Inflammatory arthritis ?M19.90 - Unspecified osteoarthritis, unspecified site (ICD-10) High triglycerides ?E78.1 - Pure hyperglyceridemia (ICD-10) Facet hypertrophy of lumbosacral region ?M47.817 - Spondylosis without myelopathy or radiculopathy, lumbosacral region (ICD-10) Attention deficit disorder (ADD) ?F98.8 - Other specified behavioral and emotional disorders with onset usually occurring in childhood and adolescence (ICD-10) LGSIL (low grade squamous intraepithelial dysplasia) Post traumatic stress disorder (PTSD) ?F43.10 - Post-traumatic stress disorder, unspecified (ICD-10) Tobacco dependence ?F17.200 - Nicotine dependence, unspecified, uncomplicated (ICD-10) Scoliosis ?M41.9 - Scoliosis, unspecified (ICD-10) Obstructive sleep apnea ?G47.33 - Obstructive sleep apnea (adult) (pediatric) (ICD-10) Major depressive disorder ?F32.9 - Major depressive disorder, single episode, unspecified (ICD-10) Anxiety disorder ?F41.9 - Anxiety disorder, unspecified (ICD-10) Human immunodeficiency virus (HIV) disease ?B20 - Human immunodeficiency virus [HIV] disease (ICD-10) Acne ?L70.9 - Acne, unspecified (ICD-10) Alcoholism in remission ?F10.21 - Alcohol dependence, in remission (ICD-10) Surgical History [place] teeth extracted ?K08.409 - Partial loss of teeth, unspecified cause, unspecified class (ICD- 10) History of tubal ligation ?Z98.51 - Tubal ligation status (ICD-10) Hx of tonsillectomy ?Z90.89 - Acquired absence of other organs (ICD-10) Status post colonoscopy with polypectomy ?Z98.890 - Other specified postprocedural states (ICD-10) H/O section ?Z98.891 - History of uterine scar from previous surgery (ICD-10) Status post rhinoplasty ?Z98.890 - Other specified postprocedural states (ICD-10) Family History Mother Colon cancer, Onset Age: 49 Social History What is your current living situation?: I presently have a place to live Problems where you live: no known problems Problems where you live details: n/a In the past 12 months, utilities in danger of being shut off: no In past 12 months, lack of transportation kept you from medical appts, meetings, work, or getting things needed for daily living: no In the past 12 mos, have been you worried that your food would run out before you had money to buy more?: never true In the past 12 mos, the food you bought just didn't last and you didn't have money to buy more?: never true Highest level of school completed/degree received: GED or equivalent Smoking Status: Current every day smoker What tobacco products do you use: cigarettes Smoking packs per day: 1 Smoking cigarettes per day: 20.0 Do you use any of these nicotine containing products: None How often do you have a drink containing alcohol: never How often do you have six or more drinks on one occasion: Never AUDIT-C Alcohol total score: 0 Non-prescribed substance use: denies use Non-prescribed substance use details: denies use Caffeine: Yes (2 cans of Mt dew) How often does anyone, including family, friends and others, physically hurt you : never How often does anyone, including family, friends and others, insult or talk down to you: never How often does anyone, including family, friends and others, threaten you with harm: never How often does anyone, including family, friends and others, scream or curse at you: never service: No Exam Narrative: Exam Narrative: EXAM GENERAL: Patient appears comfortable and well. EYES: No scleral icterus. ENT: Bilateral tympanic membrane inflammation with erythema noted. THYROID: no thyroid nodules or thyromegaly. LYMPH: No supraclavicular or cervical lymphadenopathy. SKIN: Visible skin seen during exam normal or with benign process only. EXT: No dependent lower extremity pedal edema. HEART: Regular rate and rhythm with no murmurs, rubs, or gallops. LUNGS: Clear to auscultation bilaterally with no crackles or wheezes. ABD: Soft, non tender, non distended. PSYCH: Good eye contact, speech is not pressured. Const: Vital Signs, click to edit/add: Vital Signs - 24 hr 09/09/24 08:41 Temperature 97.4 F L Pulse Rate [Left P ulse Oximeter] 86 Respiratory Rate 18 Blood Pressure [Le ft Upper Arm] 134/90 H Pulse Oximetry 98 Oxygen Delivery Me thod Room Air Course Course ED Course: Patient seen and examined. Vital Signs Vital signs: Initial Vital Signs Temperature 97.4 F L 09/09/24 08:41 Temperature Source Temporal Artery Scan 09/09/24 08:41 Pulse Rate 86 05/10/25 08:41 Respiratory Rate 18 09/09/24 08:41 Blood Pressure 134/90 H 09/09/24 08:41 Blood Pressure Mean 104 09/09/24 08:41 Blood Pressure Position Sitting 09/09/24 08:41 Pulse Oximetry 98 09/09/24 08:41 Oxygen Delivery Method Room Air 09/09/24 08:41 Vital Signs Temperature 97.4 F L 09/09/24 08:41 Pulse Rate 86 09/09/24 08:41 Respiratory Rate 18 09/09/24 08:41 Blood Pressure 134/90 H 09/09/24 08:41 Pulse Oximetry 98 09/09/24 08:41 Oxygen Delivery Method Room Air 09/09/24 08:41 Temperature 97.4 F L 09/09/24 08:41 Pulse Rate 86 09/09/24 08:41 Respiratory Rate 18 09/09/24 08:41 Blood Pressure 134/90 H 09/09/24 08:41 Pulse Oximetry 98 09/09/24 08:41 Oxygen Delivery Method Room Air 09/09/24 08:41 Medical Decision Making MDM Narrative Medical decision making narrative: Patient is a 44-year-old woman presents with bilateral otitis media. She is counseled on smoking cessation I did treated with Augmentin plenty of rest plenty fluids Tylenol Motrin and primary care follow-up. Discharge Plan Discharge Clinical Impression: Otitis media Patient Disposition: Home, Self-Care Condition: Stable Instructions: Ear Infection (ED) Additional Instructions: Augmentin as directed Tylenol Motrin Rest Fluids Follow-up with primary care as needed. Activity Level: No Restrictions Discharge Diet: Regular Prescriptions: No Action duloxetine 60 mg capsule,delayed release(DR/EC) 60 mg PO DAILY nicotine (polacrilex) 4 mg gum PO Triumeq 600-50-300 mg tablet 1 tab PO DAILY doxepin 10 mg capsule 10 mg PO QPM zolpidem 10 mg tablet 10 mg PO QPM naproxen 500 mg tablet 500 mg PO BID cyclobenzaprine 5 mg tablet 5 mg PO QPM PRN Follow Up/Referrals: Ana Maria Renner PA-C [Primary Care Provider] - Stand [facility]one [facility] Inst[facility]
--- OUTSIDE RECORDS SUMMARY | 2024-09-09 09:03 | XMS_ITS | Clinical Summary ---
Author Organization [facility] Address [address] [place] [address] Care Team Providers Care Prison Librarian Name Role Phone Ana Maria Renner Primary Care Provider [phone] Aye Roca Unavailable Allergies Active Allergy Reactions [...] cervical 10/31 Overview (11/09/2023): 06/2014 LSIL 08/2014 [place]: Suggestive of JAYNE 1 04/2019 NIL/HPV Negative [...] Type Department Care Team Description 08/22/2024 Refill [facility] [address] [place] [address] Ana Maria Renner PA Refill Request (NICOTINE 4MG CHEWING GUM, NAPROXEN 500MG TABLET) 08/15/2024 Patient Outreach [facility] - [address] [address] Aye Roca Care Coordination 06/23/2024 1:35 PM CHIP FRIER Office Visit [facility] [address] [place] [address] Ana Maria Renner PA Sleep Problem (Ongoing concerns with Sleep. Moves around, doesn't ever feel rested//Nicorette ) 06/23/2024 Telephone [facility] [address] [place] [address] Ana Maria Renner PA Medication Management (doxepin (SILENOR) 6 mg tablet) 06/23/2024 Refill [facility] [address] [facility] [place] [address] Lucille uHggins MD Refill Request (Duloxetine DR 60 mg [...] on file Legal Sex Female 5:20 AM CHIP FRIER Gender Identity Not on file Sexual Orientation Not on file Obstetrics History Para Term AB IAB SAB Ectopic Multiple Livin g Live Births 3 2 2 1 1 Date Outcome GA Total Labor Labor/2nd/3rd Weight Sex Type Anes PTL Zahraa A1 A5 Name Clin SAB Term Term Last Filed Vital Signs Vital Sign Reading Time Taken Comments Blood Pressure 130/84 06/23/2024 1:48 PM CHIP FRIER Pulse 110 06/23/2024 1:48 PM CHIP FRIER Temperature 36.7 C (98.1 F) 05/19/2021 9:02 AM CHIP FRIER Respiratory Rate 16 05/15/2019 1:15 PM CHIP FRIER Oxygen Saturation 99% 06/23/2024 1:48 PM CHIP FRIER Inhaled Oxygen Concentration - - Weight 52.2 kg (115 lb) 06/23/2024 1:48 PM CHIP FRIER Height 156.6 cm (5' 1.65) 11/02/2023 12:59 [...] cervix ANTI HCV Routine 04/01/2023 3:03 PM CHIP FRIER HIV infection, asymptomatic (HC) LIPID PANEL Routine 04/01/2023 3:03 PM CHIP FRIER HIV infection, asymptomatic (HC) COLONOSCOPY 05/15/2019 11:41 AM CHIP FRIER from Last 3 Months or Most Recently Relevant to Health Maintenance Results * (ABNORMAL) ANTI HIV 1/2 (01/05/2024 3:10 PM CDT) HIV-1/HIV-2 SCREEN Preliminary Positive(A) Non-Reac tive 01/07/2024 9:04 AM CDT [facility] Comment:Presumptive evidence of HIV-1 p24 Ag and/or HIV-1/HIV-2 Ab. HIV 1/2 Differentation test ordered. Blood BLOOD SPECIMEN / Unknown Venipuncture / Unknown 01/05/2024 3:10 PM CDT 01/05/2024 3:10 PM CDT Narrative [facility] - 01/07/2024 9:04 AM CDT Canceled- Ordered Incorrectly us Ana Maria ADAMS SEND OUTS Edited Re sult - Final [facility] [address] [place] [address], * XR MAMMO BILAT SCREENING (11/15/2023 4:05 [...] health care provider. XR MAMMO BILAT SCREENING [[id number]] CLINICAL HISTORY: This is an asymptomatic 43 y.o. patient. INDICATION FOR EXAM: Mammogram Screening. TECHNIQUE: CC & MLO views were obtained. This study was evaluated with the assistance of Computer-Aided Detection. COMPARISON FILM: Yes 05/18/19 [facility] FINDINGS: The breasts are heterogeneously dense, which may obscure small masses. There are no dominant masses, suspicious micro calcifications or areas of architectural distortion. Ana Maria ADAMS MAMMO Final Res ult * (ABNORMAL) HPV HIGH RISK (11/02/2023 1:35 PM CDT) TYPE 16 Negative Negative 11/08/2023 1:36 PM CDT [facility] TYPE 18 Negative Negative 11/08/2023 1:36 PM CDT [facility] OTHER HIGH RISK TYPES Positive(A) Negative 11/08/2023 1:36 PM CDT [facility] Other (Cervical) Non-Blood / Unknown 11/02/2023 1:35 PM CDT 11/03/2023 12:54 PM CDT Narrative [facility] - 11/08/2023 1:36 PM CDT [...] Ana Maria ADAMS MICROBIOLOGY Final Res ult [facility] [address] [place] [address], * ANTI HCV (04/01/2023 3:03 PM CHIP FRIER) HEPATITIS C ANTIBODY Non-Reacti ve Non-React carlos 04/02/2023 7:48 AM CHIP FRIER [facility] Comment:Please note, per www .CDC.gov: If a patient is known to be at high risk of HCV infection, or is symptomatic, and the physician's suspicion of HCV infection is high, HCV RNA testing is often employed and is of diagnostic value, even after an initial negative anti-HCV test result. Blood BLOOD SPECIMEN / Unknown Venipuncture / Unknown 04/01/2023 3:03 PM CHIP FRIER 04/01/2023 3:03 PM CHIP FRIER us Ana Maria ADAMS SEND OUTS Final Res ult [facility] [address] [place] [address], [place] * (ABNORMAL) LIPID PANEL (04/01/2023 3:03 PM CHIP FRIER) CHOLESTEROL,TOTAL 240(H) 100 - 199 mg/dL 04/02/2023 7:11 AM CHIP FRIER [facility] Comment: Cholesterol, Total Reference Ranges Desirable <200 mg/dL Borderline 200-239 mg/dL High >=240 mg/dL TRIGLYCERIDES 141 <150 mg/dL 04/02/2023 7:11 AM CHIP FRIER [facility] HDL CHOLESTEROL 57 >40 mg/dL 7:11 AM CHIP FRIER [facility] NON-HDL CHOLESTEROL 183(H) <145 mg/dl 04/02/2023 7:11 AM CHIP FRIER [facility] CHOL/HDL RATIO 4.21 <4.50 04/02/2023 7:11 AM CHIP FRIER [facility] LDL CHOLESTEROL 155(H) <=130 mg/dL 04/02/2023 7:11 AM CHIP FRIER [facility] VLDL CHOLESTEROL 28 <=30 mg/dL 04/02/2023 7:11 AM CHIP FRIER [facility] PROVIDER ORDERED STATUS RANDOM 04/02/2023 7:11 AM CHIP FRIER [facility] Blood BLOOD SPECIMEN / Unknown Venipuncture / Unknown 04/01/2023 3:03 PM CHIP FRIER 04/01/2023 3:03 PM CHIP FRIER us Ana Maria ADAMS CHEMISTRY Final Res ult [facility] [address] [place] [address], [place] * COLONOSCOPY (05/15/2019 11:41 AM CHIP FRIER) 05/15/2019 11:4 1 AM CHIP FRIER Narrative Transcriptions Dk Flaherty MD - 05/15/2019 12:42 PM CST Patient Name: Delores Sotelo Procedure Date: 05/15/2019 Gender: Female Date of : 1980 Admit Type: Ambulatory Procedure: Colonoscopy Proceduralist: Dk Flaherty MD , Becca Bowser,Policy Cancellation Clerk (Policy Cancellation Clerk) Indications/Pre-Op Diagnosis: Screening in patient at increased [...] bowel preparation was evaluated using the BBPS ([place] BowelPreparation Scale) with scores of: Right Colon [...] Most Recently Relevant to Health Maintenance Insurance [facility] Advance Directives * Full Code (Latest Code [...] 6:32 AM 02/27/2009 1:10 PM Care Teams Prison Librarian Relationship Specialty Start Date End Date Ana [place] [address] PCP - General Physician Rural Service Engineer 10/09/22 Aye Roca [address] [place] [address] Care Guide 08/15/24 Cherrie Solis Certified Addiction Counselor 08/22/24
--- OUTSIDE RECORDS SUMMARY | 2024-09-09 09:03 | XMS_ITS | Encounter Summary ---
Author Organization [employer] Address [address] [place] [address] Care Team Providers Care Candy Depositing Machine Operator Name Role Phone Unavailable Primary Care Provider Unavailabl e Reason for Visit * Reason Onset Date Comments MH/CD Inpatient 04/30/2016 Encounter Details Date Type Department Care Team ([facility] st Contact Info) Description 04/30/2016 Telephone [facility] Behavioral Health Intake [address] [place] [id number] Generic, Behavioral Intake, MD MH/CD Inpatient Social [...] AM CST Received call from Evelin at [facility] [phone]; no change in presentation since yesterday.Hold expires tomorrow afternoon. R: Spoke with Dr. Angel / yard goods salesperson for [facility] today; would need an ITC bed and unit cannot accommodate at this time; declines due to this and the fact that the hold expires tomorrow and no steps have been taken to file commitment papers. Recommends they keep patient within their own system at this time. Evelin notified. TITCHING MACHINE OPERATOR documented in this encounter Plan of Treatment Not on file documented as of this encounter Visit Diagnoses Not on filedocumented in this encounter
--- OUTSIDE RECORDS SUMMARY | 2024-09-09 09:03 | XMS_ITS | Clinical Summary ---
Author Organization [facility] Address [facility] [place] [address] Care Team Providers Care Senior Electronics Engineer Name Role Phone Unavailable Primary Care Provider [...] Comments Blood Pressure 119/79 07/01/2023 4:26 PM STAIR BUILDER Pulse 95 07/01/2023 4:26 PM STAIR BUILDER Temperature 37.2 C (98.9 F) 07/01/2023 4:26 PM STAIR BUILDER Respiratory Rate 20 07/01/2023 4:26 PM STAIR BUILDER Oxygen Saturation 99% 07/01/2023 4:26 PM STAIR BUILDER Inhaled Oxygen Concentration - - Weight 45.4 kg (100 lb) 07/01/2023 4:26 PM STAIR BUILDER Height 157.5 cm (5' 2) 07/01/2023 4:26 PM STAIR BUILDER Body Mass Index 18.29 07/01/2023 4:26 PM STAIR BUILDER Plan of Treatment Health Maintenance Due Date [...] complete this topic [place] [facility] [place]: [id number] [place] [phone]
--- OUTSIDE RECORDS SUMMARY | 2024-09-09 09:03 | XMS_ITS | Encounter Summary ---
Author Organization [facility] Address [address], [place] [address] Care Team Providers Care Dinkey Driver Name Role Phone Unavailable Primary Care Provider Unavailabl e Encounter Details Date Type Department Care Team (Late st Contact Info) Description 06/06/2016 Outside Hospital External to External, [place] [address] [facility] Social History Tobacco Use Types Packs/Day Years Used Date Smoking Tobacco: Never Assessed Comments Unknown Sex and Gender Information Value Date Recorded Sex Assigned at Not on file Legal Sex Female 9:19 AM EQUIPMENT WORKER Gender Identity Not on file Sexual Orientation Not on file documented as of this encounter Plan of Treatment Not on file documented as of this encounter Visit Diagnoses Not on filedocumented in this encounter
--- OUTSIDE RECORDS SUMMARY | 2024-09-09 09:03 | XMS_ITS | Encounter Summary ---
Author Organization [facility] Address [address], [place] [address] Care Team Providers Care Child Nurse Name Role Phone Unavailable Primary Care Provider Unavailabl e Encounter Details Date Type Department Care Team (Late st Contact Info) Description 06/05/2016 Scanned History External to External, [place] [address] EXTERNAL-CONSULTS Social History Tobacco Use Types Packs/Day Years Used Date Smoking Tobacco: Never Assessed Comments Unknown Sex and Gender Information Value Date Recorded Sex Assigned at Not on file Legal Sex Female 9:19 AM SANITATION WORKER Gender Identity Not on file Sexual Orientation Not on file documented as of this encounter Plan of Treatment Not on file documented as of this encounter Visit Diagnoses Not on filedocumented in this encounter
--- OUTSIDE RECORDS SUMMARY | 2024-09-09 09:03 | XMS_ITS | Encounter Summary ---
Author Organization [facility] Address [address], [place] [address] Care Team Providers Care Student Services Representative Name Role Phone Unavailable Primary Care Provider Unavailabl e Encounter Details Date Type Department Care Team (Late st Contact Info) Description 06/05/2016 Outside Hospital External to External, [place] [address] [facility] Social History Tobacco Use Types Packs/Day Years Used Date Smoking Tobacco: Never Assessed Comments Unknown Sex and Gender Information Value Date Recorded Sex Assigned at Not on file Legal Sex Female 9:19 AM WIRE WINDER Gender Identity Not on file Sexual Orientation Not on file documented as of this encounter Plan of Treatment Not on file documented as of this encounter Visit Diagnoses Not on filedocumented in this encounter
--- OUTSIDE RECORDS SUMMARY | 2024-09-09 09:03 | XMS_ITS | Clinical Summary ---
Author Organization [facility] Address [address] [address] Care Team Providers Care Ornament Maker Hand Name Role Phone Unavailable Primary Care Provider Unavailabl e Source Comments You are receiving this document as you are listed as the primary care provider,follow-up provider, or the patient has been referred to you for consultation.This is in compliance with the Medicare and[facility] Memorial Hospitalca[facility] EHR Incentive Program,which states Providers who transition their patient to another setting of careor provider of care or refers their patient to another provider of care shouldprovide summary care record for each transition of care or referral. [employer] Allergies Active Allergy Reactions Criticality Noted Date [...] Multidose Vial 0 .25 (6-35 Mos) 04/09/2015 [id number] 04/23/2009 HepA Adult (19+ yrs) 02/08/2019,07/28/2018 HepB Adult (Engerix-B, 20+ y rs, 3 dose series) 01/03/2019,08/30/2018,07/28/2018 Influenza ([place] Only) (Flul aval Quad 0.5, 3+ yrs) 02/28/2014 Influenza IIV4 (Quadrivalent ) 0.5mL ([address]) 03/13/2021,03/06/2020,02/08/2019,2018,01/26/2017,06/07/2016,02/05/2016 Influenza, Unspecified Formulation 02/19/2010,,03/20/2003 MCV4 (Menactra) 09/05/2020,03/06/2020 PCV13 (Prevnar) 01/26/2017 PCV20 (Qtsbscz22) 07/28/2022 PPSV23 (Pneumovax) 02/08/2019 Tdap 07/28/2022,01/29/2012 Social [...] on file Legal Sex Female 9:19 AM HOUSEKEEPING LEAD Gender Identity Not on file Sexual Orientation Not on file Last Filed Vital Signs Vital Sign Reading Time Taken Comments Blood Pressure 132/83 06/30/2023 3:28 PM HOUSEKEEPING LEAD Pulse 90 06/30/2023 3:28 PM HOUSEKEEPING LEAD Temperature 36.5 C (97.7 F) 06/30/2023 3:28 PM HOUSEKEEPING LEAD Respiratory Rate 16 06/28/2023 4:00 PM HOUSEKEEPING LEAD Oxygen Saturation 100% 06/28/2023 4:00 PM HOUSEKEEPING LEAD Inhaled Oxygen Concentration - - Weight 45.8 kg (101 lb) 06/30/2023 3:28 PM HOUSEKEEPING LEAD Height 157.5 cm (5' 2) 06/30/2023 3:28 PM HOUSEKEEPING LEAD Body Mass Index 18.47 06/30/2023 3:28 PM HOUSEKEEPING LEAD Plan of Treatment Health Maintenance Due Date [...] age to complete this topic Insurance [facility] Advance Directives * Full Code (Latest Code Status on File) Date Activated Date Inactivated Comments 06/07/2016 12:02 PM 06/08/2016 2:07 PM
--- OUTSIDE RECORDS SUMMARY | 2024-09-09 09:03 | XMS_ITS | Encounter Summary ---
Author Organization [facility] Address [address], [place] [address] Care Team Providers Care Car Ferry Master Name Role Phone Unavailable Primary Care Provider Unavailabl e Encounter Details Date Type Department Care Team (Late st Contact Info) Description 06/07/2016 Consent for Procedure/Treatme nt [facility] Department RH INFORMED CONSENT NEUROLEPTIC MEDICATIONS Social History Tobacco Use Types Packs/Day Years Used Date Smoking Tobacco: Every Day Cigarettes Smokeless Tobacco: Current Alcohol Use Standard Drinks/Week Comments Yes 0 (1 standard drink = 0.6 oz pur e alcohol) couple times/month Comments Unknown Sex and Gender Information Value Date Recorded Sex Assigned at Not on file Legal Sex Female 9:19 AM KEY PERSON Gender Identity Not on file Sexual Orientation Not on file documented as of this encounter Plan of Treatment Not on file documented as of this encounter Visit Diagnoses Not on filedocumented in this encounter
--- OUTSIDE RECORDS SUMMARY | 2024-09-09 09:03 | XMS_ITS | Encounter Summary ---
Author Organization [facility] Address [address], [place] [address] Care Team Providers Care Test Pilot Name Role Phone Unavailable Primary Care Provider Unavailabl e Encounter Details Date Type Department Care Team (Late st Contact Info) Description 06/06/2016 Outside Hospital External to [facility] Social History Tobacco Use Types Packs/Day Years Used Date Smoking Tobacco: Never Assessed Comments Unknown Sex and Gender Information Value Date Recorded Sex Assigned at Not on file Legal Sex Female 9:19 AM GOLF TEACHER Gender Identity Not on file Sexual Orientation Not on file documented as of this encounter Plan of Treatment Not on file documented as of this encounter Visit Diagnoses Not on filedocumented in this encounter
== END 2024-09-09 09:26 | disposition home or self-care (01) ==
PROVIDERS: Emergency Provider Internal Medicine; PCP Student in an Organized Health Care Education/Training Program
DX: H66.93 Otitis media, unspecified, bilateral (principal); R05.9 Cough, unspecified; F17.210 Nicotine dependence, cigarettes, uncomplicated
CPT/HCPCS: 99283

== ENCOUNTER 2025-01-27 01:31 | Outpatient (CLI) | payer BC, SELFPAY | END 2025-01-27 01:32 | disposition home or self-care (01) | LOC: AMB 01-30 13:17 | PROVIDERS: PCP Student in an Organized Health Care Education/Training Program; Visit Provider Emergency Medicine | DX: F29 Unspecified psychosis not due to a substance or known physiological condition (principal); F91.9 Conduct disorder, unspecified | CPT/HCPCS: A0425; A0427 ==

== ENCOUNTER 2025-01-27 02:12 | Emergency (ER) | payer BC, SELFPAY ==
[2025-01-27] VITALS (80 sets, daily range): BP systolic 80–135; BP diastolic 35–93; PULSE 87–126; RESP 11–31; TEMP 36.9; O2SAT 88–99
--- OUTSIDE RECORDS SUMMARY | 2025-01-27 02:14 | XMS_ITS | Clinical Summary ---
Author Organization [place] Address [facility] [place] [address] Care Team Providers Care Spooler Operator Name Role Phone Unavailable Primary Care [...] Comments Blood Pressure 119/79 07/01/2023 4:26 PM COUNTY CORONER Pulse 95 07/01/2023 4:26 PM COUNTY CORONER Temperature 37.2 C (98.9 F) 07/01/2023 4:26 PM COUNTY CORONER Respiratory Rate 20 07/01/2023 4:26 PM COUNTY CORONER Oxygen Saturation 99% 07/01/2023 4:26 PM COUNTY CORONER Inhaled Oxygen Concentration - - Weight 45.4 kg (100 lb) 07/01/2023 4:26 PM COUNTY CORONER Height 157.5 cm (5' 2) 07/01/2023 4:26 PM COUNTY CORONER Body Mass Index 18.29 07/01/2023 4:26 PM COUNTY CORONER Plan of Treatment Health Maintenance Due Date Last Done Comments ADVANCE CARE PLANNING 1980 ANNUAL REVIEW OF HM ORDERS [address] CT COLONOGRAPHY 1980 DIABETES SCREENING 1980 FIT 1980 FLEX SIG 1979 sDNA (Cologuard) 1980 COLONOSCOPY 1989 COLORECTAL CANCER SCREENING 1989 PAP 2000 LIPID 2019 MAMMO SCREENING 05/18/2021 05/18/2019 YEARLY PREVENTIVE VISIT 07/29/2023 07/29/19 23, 07/18/2021, 01/03/2019 PHQ-2 (once per calendar year) 2024 COVID-19 VACCINE (1 - season) 2025 INFLUENZA VACCINE (#1) 2025 , 03/06/2020, 02/08/2019, Additional history exists ZOSTER VACCINE (1 of 2) 2029 DTAP/TDAP/TD VACCINE (3 - Td or Tdap) 07/28/2032 07/28/2022, 01/29/2012 HEPATITIS B VACCINE Completed 01/03/2019, 08/30/2018, 07/28/2018 MENINGITIS VACCINE Aged Out 09/05/2020, 03/06/2020 No longer eligible based on patient's age to complete this topic PNEUMOCOCCAL VACCINE: PEDIATRICS (0 to 5 YEARS) AND AT-RISK PATIENTS (6 to 49 YEARS) Aged Out 07/28/2022, 02/08/2019, 01/26/2017 No longer eligible based on patient's age to complete this topic HEPATITIS C SCREENING Completed 04/01/2023 HIV SCREENING Completed 04/01/2023 HPV VACCINE (No Doses Required) Completed Insurance [facility]
--- OUTSIDE RECORDS SUMMARY | 2025-01-27 02:14 | XMS_ITS | Encounter Summary ---
Author Organization [facility] Address [address], [place] [address] Care Team Providers Care Electric Furnace Operator Name Role Phone Unavailable Primary Care Provider Unavailabl e Encounter Details Date Type Department Care Team (Late st Contact Info) Description 06/05/2016 Scanned History External to External, [place] [address] EXTERNAL-CONSULTS Social History Tobacco Use Types Packs/Day Years Used Date Smoking Tobacco: Never Assessed Comments Unknown Sex and Gender Information Value Date Recorded Sex Assigned at Not on file Legal Sex Female 9:19 AM MULTIMEDIA SPECIALIST Gender Identity Not on file Sexual Orientation Not on file documented as of this encounter Plan of Treatment Not on file documented as of this encounter Visit Diagnoses Not on filedocumented in this encounter
--- OUTSIDE RECORDS SUMMARY | 2025-01-27 02:14 | XMS_ITS | Encounter Summary ---
Author Organization [facility] Address [address] [address] Care Team Providers Care Manager Retention Name Role Phone Unavailable Primary Care Provider Unavailabl e Encounter Details Date Type Department Care Team (Late st Contact Info) Description 06/07/2016 Consent for Procedure/Treatme nt [facility] Department RH INFORMED CONSENT NEUROLEPTIC MEDICATIONS Social History Tobacco Use Types Packs/Day Years Used Date Smoking Tobacco: Every Day Cigarettes Smokeless Tobacco: Current Alcohol Use Standard Drinks/Week Comments Yes 0 (1 standard drink = 0.6 oz pur e alcohol) couple times/month Comments Unknown Sex and Gender Information Value Date Recorded Sex Assigned at Not on file Legal Sex Female 9:19 AM DIRECTOR VETERINARY Gender Identity Not on file Sexual Orientation Not on file documented as of this encounter Plan of Treatment Not on file documented as of this encounter Visit Diagnoses Not on filedocumented in this encounter
--- OUTSIDE RECORDS SUMMARY | 2025-01-27 02:14 | XMS_ITS | Encounter Summary ---
Author Organization [facility] Address [address], [place] [address] Care Team Providers Care Mixer Whipped Topping Name Role Phone Unavailable Primary Care Provider Unavailabl e Encounter Details Date Type Department Care Team (Late st Contact Info) Description 06/06/2016 Outside Hospital External to External, [place] [address] [facility] Social History Tobacco Use Types Packs/Day Years Used Date Smoking Tobacco: Never Assessed Comments Unknown Sex and Gender Information Value Date Recorded Sex Assigned at Not on file Legal Sex Female 9:19 AM ULTRASONIC WELDING MACHINE OPERATOR Gender Identity Not on file Sexual Orientation Not on file documented as of this encounter Plan of Treatment Not on file documented as of this encounter Visit Diagnoses Not on filedocumented in this encounter
--- OUTSIDE RECORDS SUMMARY | 2025-01-27 02:14 | XMS_ITS | Clinical Summary ---
Author Organization [employer] [facility] Address [address] [place] [id number] Care Team Providers Care Machine Programmer Name Role Phone Ana Maria Renner Primary Care Provider [phone] Allergies Active Allergy Reactions Criticality Noted Date [...] Tablet 5 Active fluconazole (DIFLUCAN) 150 mg tabletIndication [...] Capsule 3 5 Active nicotine 4 mg gumIndications:T obacco use disorder Chew 1 Each (4 mg) every hour while awake as needed for Nicotine Craving. 100 Each 1 5 Active Active Problems Problem Noted Date Diagnosed Date Cluster B personality disorder 06/23/2024 Polysubstance abuse 11/02/2023 ASCUS with positive high risk HPV cervical 10/31 Overview (11/07/2024): 06/2014 LSIL 08/2014 [place]: Suggestive of JAYNE 1 04/2019 NIL/HPV Negative 07/2021 NIL/HPV Negative 07/2022 NIL/HPV Negative 11/2023 ASCUS/HPV+, HPV 16/18 negative Plan: Pap and HPV due 10/2024 Patients with Immunocompromising conditions: Screening should begin within 1 year of diagnosis and continue throughout a patient's lifetime (older than 65). Discontinue screening based on shared discussion regarding quality and duration of life rather than age. Ages 21-24: Pap only - annually x 3, then age appropriate testing in 3 years. Ages 25-65: HPV based testing every 3 years for the patient's lifetime (or until patient/provider decide otherwise). Inflammatory polyarthropathy 10/25/2023 Mixed hyperlipidemia 10/25/2023 Lumbar [...] Encounters Date Type Department Care Team Description 01/11/2025 1:30 PM CDT Orders Only [facility] [address] [place] [address] Lab, [place] [facility] 01/11/2025 Travel from Last 3 Months Immunizations Immunization [...] Date Smoking Tobacco: Every Day Cigarettes 1 57.5 Started: 07/29/1995 Smokeless Tobacco: Never Tobacco Cessation:Ready [...] on file Legal Sex Female 5:20 AM FELL CUTTER Gender Identity Not on file Sexual Orientation Not on file Obstetrics History Para Term AB IAB SAB Ectopic Multiple Livin g Live Births 3 2 2 1 1 Date Outcome GA Total Labor Labor/2nd/3rd Weight Sex Type Anes PTL Zahraa A1 A5 Name Clin SAB Term Term Last Filed Vital Signs Vital Sign Reading Time Taken Comments Blood Pressure 130/84 06/23/2024 1:48 PM FELL CUTTER Pulse 110 06/23/2024 1:48 PM FELL CUTTER Temperature 36.7 C (98.1 F) 05/19/2021 9:02 AM FELL CUTTER Respiratory Rate 16 05/15/2019 1:15 PM FELL CUTTER Oxygen Saturation 99% 06/23/2024 1:48 PM FELL CUTTER Inhaled Oxygen Concentration - - Weight 52.2 kg (115 lb) 06/23/2024 1:48 PM FELL CUTTER Height 156.6 cm (5' 1.65) 11/02/2023 12:59 PM C DT Body Mass Index 21.27 11/02/2023 12:59 PM CDT Plan of Treatment Health Maintenance Due Date Last Done Comments COVID-19 vaccine series (#1) 1984 HPV series for age 9-45 (1 - Risk 3-dose SCDM series) 2006 BMI (ht and wt on same day) for age 18+ 11/01/2024 11/02/2023, 10/25/2023, 07/28/2022, Additional history exists Pap test for age 21-65 11/01/2024 , 11/02/2023, 07/28/2022, Additional history exists Mammogram for age 45-75 11/14/2024 11/15/2023 Influenza Vaccine (#1) 2025 , 03/13/2021, 03/06/2020, Additional history exists Depression screening for age 12+ 03/20/2025 03/20/2024, 11/02/2023, 07/29/2022, Additional history exists Lipids for age 45-75 04/01/2028 04/01/2023, 10/09/2022, 07/28/2022, Additional history exists Colonoscopy through age 75 05/15/2029 05/15/2019 Tetanus booster 07/28/2032 07/28/2022, 01/29/2012 RSV vaccine for adults or (1 - 1-dose 75+ series) 2054 Hepatitis B series for 19+ Completed 01/03, 08/30/2018, 07/28/2018 Pneumococcal series for age 6-49 Completed 07/29/19 23, 02/08/2019 Hepatitis C screening for ag e 18-79 Completed 04/01/2023, 10/09/2022, 03/18/2015 HIV for age 15-65 Completed 01/05/2024, , 04/01/2023, Additional history exists Procedures Procedure Name Priority Date/Time Associated Diagnosis Comments ANTI HIV 1/2 Routine 01/05/2024 3:10 PM CDT Asymptomatic human immunodeficiency virus (HIV) infection status (HC) XR MAMMO BILAT SCREENING Routine 11/15/2023 4:05 PM CDT Routine check-up HPV HIGH RISK Routine 11/02/2023 1:35 PM CDT Screening for malignant neoplasm of cervix ANTI HCV Routine 04/01/2023 3:03 PM FELL CUTTER HIV infection, asymptomatic (HC) LIPID PANEL Routine 04/01/2023 3:03 PM FELL CUTTER HIV infection, asymptomatic (HC) COLONOSCOPY 05/15/2019 11:41 AM FELL CUTTER from Last 3 Months or Most Recently Relevant to Health Maintenance Results * (ABNORMAL) ANTI HIV 1/2 (01/05/2024 3:10 PM CDT) HIV-1/HIV-2 SCREEN Preliminary Positive(A) Non-Reac tive 01/07/2024 9:04 AM CDT [facility] Comment:Presumptive evidence of HIV-1 p24 Ag and/or HIV-1/HIV-2 Ab. HIV 1/2 Differentation test ordered. Blood BLOOD SPECIMEN / Unknown Venipuncture / Unknown 01/05/2024 3:10 PM CDT 01/05/2024 3:10 PM CDT Narrative [facility] - 01/07/2024 9:04 AM CDT Canceled- Ordered Incorrectly us Ana Maria ADAMS SEND OUTS Edited Re sult - Final [facility] [address] [place] [address], [place] * XR MAMMO BILAT SCREENING (11/15/2023 [...] health care provider. XR MAMMO BILAT SCREENING [[id number]] CLINICAL HISTORY: This is an asymptomatic 43 y.o. patient. INDICATION FOR EXAM: Mammogram Screening. TECHNIQUE: CC & MLO views were obtained. This study was evaluated with the assistance of Computer-Aided Detection. COMPARISON FILM: Yes 05/18/19 [facility] FINDINGS: The breasts are heterogeneously dense, which may obscure small masses. There are no dominant masses, suspicious micro calcifications or areas of architectural distortion. us Ana Maria ADAMS MAMMO Final Res ult * (ABNORMAL) HPV HIGH RISK (11/02/2023 1:35 PM CDT) TYPE 16 Negative Negative 11/08/2023 1:36 PM CDT [facility] TYPE 18 Negative Negative 11/08/2023 1:36 PM CDT [facility] OTHER HIGH RISK TYPES Positive(A) Negative 11/08/2023 1:[address] [facility] Other (Cervical) Non-Blood / Unknown 11/02/2023 1:35 PM CDT 11/03/2023 12:54 PM CDT Narrative [facility] - 11/08/2023 1:36 PM CDT Specimen [...] MICROBIOLOGY Final Res ult Performing Organization Address [facility] [[email or web address]] Co de Phone Number [facility] [address] [place] [address], [place] * ANTI HCV (04/01/2023 3:03 PM FELL CUTTER) [facility] HEPATITIS C ANTIBODY Non-Reacti ve Non-React carlos 04/02/2023 7:48 AM FELL CUTTER [facility] Comment:Please note, per www .CDC.gov: If a patient is known to be at high risk of HCV infection, or is symptomatic, and the physician's suspicion of HCV infection is high, HCV RNA testing is often employed and is of diagnostic value, even after an initial negative anti-HCV test result. Blood BLOOD SPECIMEN / Unknown Venipuncture / Unknown 04/01/2023 3:03 PM FELL CUTTER 04/01/2023 3:03 PM FELL CUTTER us Ana Maria ADAMS SEND OUTS Final Res ult Performing Organization Address [facility] [[email or web address]] Co de Phone Number [facility] [address] [place] [address], [place] * (ABNORMAL) LIPID PANEL (04/01/2023 3:03 PM FELL CUTTER) Pathologist [facility] CHOLESTEROL,TOTAL 240(H) 100 - 199 mg/dL 04/02/2023 7:11 AM FELL CUTTER [facility] Comment: Cholesterol, Total Reference Ranges Desirable <200 mg/dL Borderline 200-239 mg/dL High >=240 mg/dL TRIGLYCERIDES 141 <150 mg/dL 04/02/2023 7:11 AM FELL CUTTER [facility] HDL CHOLESTEROL 57 >40 mg/dL 7:11 AM FELL CUTTER [facility] NON-HDL CHOLESTEROL 183(H) <145 mg/dl 04/02/2023 7:[address] [facility] CHOL/HDL RATIO 4.21 <4.50 04/02/2023 7:11 AM FELL CUTTER [facility] LDL CHOLESTEROL 155(H) <=130 mg/dL 04/02/2023 7:[address] [facility] VLDL CHOLESTEROL 28 <=30 mg/dL 04/02/2023 7:11 AM FELL CUTTER [facility] PROVIDER ORDERED STATUS RANDOM 04/02/2023 7:11 AM FELL CUTTER [facility] Blood BLOOD SPECIMEN / Unknown Venipuncture / Unknown 04/01/2023 3:03 PM FELL CUTTER 04/01/2023 3:03 PM FELL CUTTER us Ana Maria DAAMS CHEMISTRY Final Res ult [facility] [address] [place] [id number], [place] * COLONOSCOPY (05/15/2019 11:41 AM FELL CUTTER) 05/15/2019 11:4 1 AM FELL CUTTER Narrative Transcriptions Dk Flaherty MD - 05/15/2019 12:42 PM CST Patient Name: Delores Sotelo Procedure Date: 05/15/2019 Gender: Female Date of : 1980 Admit Type: Ambulatory Procedure: Colonoscopy Proceduralist: Dk Flaherty MD , Becca Bowser,Licensed Funeral Director And Embalmer (Licensed Funeral Director And Embalmer) Indications/Pre-Op Diagnosis: Screening in patient at increased [...] bowel preparation was evaluated using the BBPS ([place] BowelPreparation Scale) with scores of: Right Colon [...] electronically. Note Initiated On: 05/15/2019 11:41 AM Dk Flaherty MD PROCEDURE ORD Final Res ult from Last 3 Months or Most Recently Relevant to Health Maintenance Insurance [facility] Advance Directives * Full Code (Latest [...] 6:32 AM 02/27/2009 1:10 PM Care Teams Machine Programmer Relationship Specialty Start Date End Date Ana Maria Renner PA [address] [place] [address] PCP - General Physician Manager [employer] 10/09/22 Cherrie Solis Consumer Relations Complaint Clerk 08/22/24
--- OUTSIDE RECORDS SUMMARY | 2025-01-27 02:14 | XMS_ITS | Encounter Summary ---
Author Organization [facility] Address [address], [place] [address] Care Team Providers Care Soda Fountain Operator Name Role Phone Unavailable Primary Care [...] on file Legal Sex Female 9:[address]QU[address] OPERATOR Gender Identity Not on file Sexual Orientation Not on file documented as of this encounter Plan of Treatment Not on file documented as of this encounter Visit Diagnoses Not on filedocumented in this encounter
--- OUTSIDE RECORDS SUMMARY | 2025-01-27 02:14 | XMS_ITS | Clinical Summary ---
Author Organization [facility] Address [address], [place] [address] Care Team Providers Care Implementation Lead Name Role Phone Unavailable Primary Care Provider Unavailabl e Source Comments You are receiving this document as you are listed as the primary care provider,follow-up provider, or the patient has been referred to you for consultation.This is in compliance with the Medicare and[facility] Hospitalcaid EHR Incentive Program,which states Providers who transition their patient to another setting of careor provider of care or refers their patient to another provider of care shouldprovide summary care record for each transition of care or referral. [employer] Allergies Active Allergy Reactions Criticality Noted Date [...] Multidose Vial 0 .25 (6-35 Mos) 04/09/2015 [id number] 04/23/2009 HepA Adult (19+ yrs) 02/08/2019,07/28/2018 HepB Adult (Engerix-B, 20+ y rs, 3 dose series) 01/03/2019,08/30/2018,07/28/2018 Influenza ([facility] Only) (Flul aval Quad 0.5, 3+ yrs) 02/28/2014 Influenza IIV4 (Quadrivalent ) 0.5mL (39804) 03/13/2021,03/06/2020,02/08/2019,2018,01/26/2017,06/07/2016,02/05/2016 Influenza, Unspecified Formulation 02/19/2010,,03/20/2003 MCV4 (Menactra) 09/05/2020,03/06/2020 PCV13 (Prevnar) 01/26/2017 PCV20 ([id number]) 07/28/2022 PPSV23 (Pneumovax) 02/08/2019 Tdap 07/28/2022,01/29/2012 Social [...] on file Legal Sex Female 9:19 AM SAFETY COMPANION Gender Identity Not on file Sexual Orientation Not on file Last Filed Vital Signs Vital Sign Reading Time Taken Comments Blood Pressure 132/83 06/30/2023 3:28 PM SAFETY COMPANION Pulse 90 06/30/2023 3:28 PM SAFETY COMPANION Temperature 36.5 C (97.7 F) 06/30/2023 3:28 PM SAFETY COMPANION Respiratory Rate 16 06/28/2023 4:00 PM SAFETY COMPANION Oxygen Saturation 100% 06/28/2023 4:00 PM SAFETY COMPANION Inhaled Oxygen Concentration - - Weight 45.8 kg (101 lb) 06/30/2023 3:28 PM SAFETY COMPANION Height 157.5 cm (5' 2) 06/30/2023 3:28 PM SAFETY COMPANION Body Mass Index 18.47 06/30/2023 3:28 PM SAFETY COMPANION Plan of Treatment Health Maintenance Due Date Last Done Comments Cervical Cancer Screening Due 1980 Colon Cancer Screening Plan Due 1980 Hep C Screening (Preventive Services) 1980 Adult Preventive Visit 1997 HPV Vaccine (1 - 3-dose SCDM series) 2006 Mammogram 05/18/2020 05/18/2019 Cholesterol 2024 COVID-19 Vaccine ( - season) 2025 Influenza Vaccine (#1) 2025 , 03/06/2020, 02/08/2019, Additional history exists Pneumococcal Vaccine (3 of 3 - PCV20 or PCV21) 2029 07/28/2022, 02/08/2019, 01/26/2017 Zoster/Shingles Vaccine (1 of 2) 2029 DTaP/Tdap/Td Vaccine (3 - Tdap) 07/28/2032 07/28/2022, 01/29/2012 HepB Vaccine Completed 01/03/2019, 08/03, 07/28/2018 HepA Vaccine Completed 02/08/2019, 07/28/2018 MCV4 Vaccine Aged Out 09/05/2020, 03/06/2020 No lo nger eligible based on patient's age to complete this topic HIV Screening (Preventive Services) Completed 04/01/2023 Hib Vaccine Aged Out No longer eligi ble based on patient's age to complete this topic IPV (Polio) Vaccine Aged Out No longe r eligible based on patient's age to complete this topic Meningococcal B Vaccine Aged Out No l onger eligible based on patient's age to complete this topic Insurance [facility] Advance Directives * Full Code (Latest Code Status on File) Date Activated Date Inactivated Comments 06/07/2016 12:02 PM 06/08/2016 2:07 PM
--- OUTSIDE RECORDS SUMMARY | 2025-01-27 02:14 | XMS_ITS | Encounter Summary ---
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
--- NOTE | 2025-01-27 02:46 | CRLHL7_ITS ---
For Patients: As a result of the Century Cures Act, medical imaging exams and procedure reports are released immediately into your electronic medical record. You may view this report before your referring provider. If you have questions, please contact your health care provider. INDICATION: Neck injury from a fall TECHNIQUE: CT cervical spine without i.v. contrast. Coronal and sagittal reformats were obtained. COMPARISON: None FINDINGS: Alignment: Straightening of the cervical spine is noted. Bone: There is an oblong ossific focus inferior to the anterior arch of C1 and anterior to the dens which may represent longus colli calcific tendinitis. No acute fractures or aggressive bone lesions are identified. Disc: Moderate degenerative disc narrowing seen at C5-6 and C6-7. The facet joints are unremarkable. Soft tissue: The prevertebral soft tissues are unremarkable in appearance. The visualized lung apices and mediastinum are unremarkable. IMPRESSION: 1. No acute osseous injuries are identified. Dictated by Jovany Timmons MD @ 01/27/2025 3:28:21 AM Please note that all CT scans at this facility use dose modulation, iterative reconstruction, and/or weight-based dosing when appropriate to reduce radiation dose to as low as reasonably achievable. Dictated by: Jovany Timmons MD @ 01/27/2025 03:28:26 (Electronically Signed)
--- NOTE | 2025-01-27 02:46 | CRLHL7_ITS ---
For Patients: As a result of the Century Cures Act, medical imaging exams and procedure reports are released immediately into your electronic medical record. You may view this report before your referring provider. If you have questions, please contact your health care provider. INDICATION: Head injury, hit head, fall TECHNIQUE: CT Head without i.v. contrast. Coronal and sagittal reformats were obtained. COMPARISON: None FINDINGS: CSF space: The ventricles are normal for age. Brain: No evidence of mass, acute infarction or hemorrhage is seen. No mass-effect or midline shift is seen. The brain parenchyma is otherwise normal in appearance with preservation of the rodríguez-white matter junction. Calvarium: The visualized paranasal sinuses are well aerated. The mastoid air cells are clear. The visualized orbits are grossly unremarkable. The patient is status post a right pterional craniotomy. IMPRESSION: 1. No evidence of acute infarction, intracranial hemorrhage, or mass-effect seen. Dictated by Jovany Timmons MD @ 01/27/2025 3:25:20 AM Please note that all CT scans at this facility use dose modulation, iterative reconstruction, and/or weight-based dosing when appropriate to reduce radiation dose to as low as reasonably achievable. Dictated by: Jovany Timmons MD @ 01/27/2025 03:25:26 (Electronically Signed)
--- NOTE | 2025-01-27 02:46 | CRLHL7_ITS ---
For Patients: As a result of the Cures Act, medical imaging exams and procedure reports are released immediately into your electronic medical record. You may view this report before your referring provider. If you have questions, please contact your health care provider. INDICATION: Laceration, hand injury, fall TECHNIQUE: Hand radiograph 3 views right COMPARISON: None FINDINGS: Bone: No acute fractures or aggressive bone lesions are identified. Negative ulnar variance of 3 mm noted. A portion of the 3rd proximal phalanx is obscured by a metallic ring. Evaluation of the digits on the lateral examination is moderately degraded due to overlapped digit positioning. Joint: Mild osteoarthritis of the 2nd through 5th DIP joints are noted. Soft tissue: Unremarkable. No radiopaque foreign bodies are seen. IMPRESSION: 1. No acute osseous injuries are noted. Dictated by Jovany Timmons MD @ 01/27/2025 3:21:53 AM Dictated by: Jovany Timmons MD @ 01/27/2025 03:21:55 (Electronically Signed)
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
[2025-01-27] MEDS: MIDAZOLAM HCL 1 MG/ML inj 2.5 MG IVP (04:02)
[2025-01-27 04:25] LABS: Hematocrit* 32.5 % (33.0-51.0); Hemoglobin* 11.1 gm/dL (12.0-16.0); Immature Granulocytes Abs Auto 0.01 K/uL (0.00-0.30); Immature Granulocytes Pct Auto 0.1 %; Lymphocytes Absolute Auto 1.70 K/uL (0.90-2.90); Mean Corpuscular HGB Conc 34 gm/dL (32-36); Mean Corpuscular Hemoglobin 30 pg (26-34); Mean Corpuscular Volume 88 fL (80-100); RDW Coefficient of Variation % 12.7 % (11.5-15.5); Red Blood Count* 3.71 m/uL (4.00-5.20); White Blood Count* 7.88 K/uL (4.50-11.00)
[2025-01-27 04:28] LABS: Slide Review Reflex No
[2025-01-27 04:37] LABS: Chloride* 107 mmol/L (96-114)
[2025-01-27 04:38] LABS: Potassium* 3.7 mmol/L (3.6-5.1); Sodium* 142 mmol/L (135-149)
[2025-01-27 04:40] LABS: Blood Urea Nitrogen* 5 mg/dL (5-24); Creatinine* 0.6 mg/dL (0.5-1.5); Estimated Glomerular Filt Rate 113 ml/min
[2025-01-27 04:41] LABS: Acetaminophen* < 10.0 ug/mL (10.0-30.0); Anion Gap 13 mEq/L (7-15); Calcium* 8.9 mg/dL (8.4-10.6); Carbon Dioxide* 22 mmol/L (20-32); Ethanol* 0.16 % (0.01-0.03); Glucose* 111 mg/dL (60-115); Salicylate* < 1.0 mg/dL (1.0-10)
[2025-01-27] MEDS: ACETAMINOPHEN 325 MG TABLET 650 MG PO (09:34)
[2025-01-27 09:54] LABS: Cannabinoid Screen Urine Negative (Negative); Methamphetamines Screen Urine Negative (Negative); Tricyclic Antidepressant Urine Negative (Negative)
== END 2025-01-27 10:21 | disposition home or self-care (01) ==
PROVIDERS: Emergency Provider Emergency Medicine; PCP Student in an Organized Health Care Education/Training Program
DX: R41.82 Altered mental status, unspecified (principal); S61.411A Laceration without foreign body of right hand, initial encounter
CPT/HCPCS: 12002; 36415; 70450; 72125; 73130; 80048; 80143; 80179; 80306; 82077; 85025; 96374; 96375; 99285; 99291; A9270; J1790; J2250; J7030